=== PATIENT | male | born 1945 | race Caucasian/White ===

== ENCOUNTER 2020-02-14 10:56 | Emergency (ER) | payer MEDICARE ==
[~2020-02-14] VITALS: Ht 180.3 cm; Wt 103.0 kg
--- OUTSIDE RECORDS SUMMARY | ~2020-02-14 | XMS | Encounter Summary ---
Demographics + + + | Address | [address] | | | [place] [address] | + + + | Home Phone | | + + + | Preferred Language | Unknown | + + + | Marital Status | | + + + | Zoroastrian Affiliation | Unknown | + + + | Race | Unknown | + + + | Ethnic Group | Unknown | + + + Author + + + | Author | [facility] | | | and [place] | + + + | Organization | [facility] | | | and [place] | + + + | Address | Unknown | + + + | Phone | Unavailable | + + + Support + + +---------+ + | Name | Relationship | Address | Phone | + + +---------+ + | Torri Langran | ECON | Unknown | | + + +---------+ + | [facility] | ECON | Unknown | | + + +---------+ + Care Team Providers + +------+ + | Care Entry Level Administrative Assistant Name | Role | Phone | + +------+ + PCP | Unavailable | + +------+ + Encounter Details +--------+ + + + + | Date | Type | Department | Care Team | Description | +--------+ + + + + | 12/22/ | Hospital | [facility] | Bimal Benites MD | Unspecified Chest | | 2006 - | Encounter | [facility] | [address] | Pain | | | | CLINICAL DECISION | [place] [address] | | | 12/23/ | | [address] [facility] | [phone] | | | 2005 | | [place], [place] | | | | | | [address] | | | | | | [phone] | | | +--------+ + + + + Social History + +-------+ +--------+------+ | Tobacco Use | Types | Packs/Day | Years | Date | | | | | Used | | + +-------+ +--------+------+ | Never Assessed | | | | | + +-------+ +--------+------+ + + + | Sex Assigned at | Date Recorded | | | | + + + | Not on file | | + + + documented as of this encounter Plan of Treatment +--------+ + + + + | Date | Type | Specialty | Care Team | Description | +--------+ + + + + | 02/25/ | Office | Pulmonology | Андрей Lee MD | | | 2019 | Visit | | [address] | | | | | | [place] | | | | | | [phone] | | | | | | | | +--------+ + + + + | 02/27/ | Procedure | Cardiology | | | | 2019 | visit | | | | +--------+ + + + + documented as of this encounter Visit Diagnoses + + | Diagnosis | + + | Chest pain, unspecified | + + documented in this encounter"
--- OUTSIDE RECORDS SUMMARY | ~2020-02-14 | XMS | Encounter Summary ---
Demographics + + + | Address | [address] | | | [place] [address] | + + + | Home Phone | | + + + | Preferred Language | Unknown | + + + | Marital Status | | + + + | Scientology Affiliation | Unknown | + + + | Race | Unknown | + + + | Ethnic Group | Unknown | + + + Author + + + | Author | [facility] | | | and [place] | + + + | Organization | [facility] | | | and [place] | + + + | Address | Unknown | + + + | Phone | Unavailable | + + + Support + + +---------+ + | Name | Relationship | Address | Phone | + + +---------+ + | Torri Sanchez | ECON | Unknown | | + + +---------+ + | [facility] | ECON | Unknown | | + + +---------+ + Care Team Providers + +------+ + | Care Port Cdl A Driver Name | Role | Phone | + +------+ + | Deidre Urbano | PCP | | | MD | | | + +------+ + Encounter Details +--------+ + + + + | Date | Type | Department | Care Team | Description | +--------+ + + + + | 10/14/ | Orders Only | [facility] | Conversion | | | 2017 | | CONVERSION [address] | Transaction, | | | | | [address] | Provider Unknown | | | | | [place] | [phone] | | | | | [address] | | | | | | [phone] | | | +--------+ + + + [...] [address] | | | | | | [place] | | | | | | [id number] | | | | | | | | +--------+ + + + + | 02/27/ | Procedure | Cardiology | | | | 2019 | visit | | | | +--------+ + + + + documented as of this encounter Visit Diagnoses Not on filedocumented in this encounter"
--- OUTSIDE RECORDS SUMMARY | ~2020-02-14 | XMS | Encounter Summary ---
Demographics + + + | Address | [address] | | | [place] [address] | + + + | Home Phone | | + + + | Preferred Language | Unknown | + + + | Marital Status | | + + + | Jewish Affiliation | Unknown | + + + | Race | Unknown | + + + | Ethnic Group | Unknown | + + + Author + + + | Author | [facility] | | | and [place] | + + + | Organization | [facility] | | | and [place] | + + + | Address | Unknown | + + + | Phone | Unavailable | + + + Support + + +---------+ + | Name | Relationship | Address | Phone | + + +---------+ + | Torri Sanchez | ECON | Unknown | | + + +---------+ + | [facility] | ECON | Unknown | | + + +---------+ + Care Team Providers + +------+ + | Care Electrical Logging Engineer Name | Role | Phone | + +------+ + | Deidre Urbano | PCP | | | MD | | | + +------+ + Reason for Visit + + + | Reason | Comments | + + + | Device Check | | | (Remote) | | + + + Encounter Details +--------+ + + + + | Date | Type | Department | Care Team | Description | +--------+ + + + + | 12/19/ | Procedure | [facility] | | History of loop | | 2020 | visit | CARDIOLOGY [place] | | recorder (Primary | | | | [address] | | Dx) | | | | [place] | | | | | | [address] | | | | | | [phone] | | | +--------+ + + + + Social History + +-------+ +--------+ + | Tobacco Use | Types | Packs/Day | Years | Date | | | | | Used | | + +-------+ +--------+ + | Current Every Day | | 1 | | Started: 1966 | | Smoker | | | | | + +-------+ +--------+ + + +---+---+---+ | Smokeless Tobacco: | | | | | Never Used | | | | + +---+---+---+ + + + | Sex Assigned at | Date Recorded | | | | + + + | Not on file | | + + + documented as of this encounter Procedure Notes Ron Ortez RN - 12/20/2019 8:00 AM PDTAssociated Order(s): DEVICE INTERROGATION- REM OTEProcedure(s): DEVICE INTERROGATION- REMOTEPre-Procedure Diagnose(s): History of loop lucila rder IMPLANTABLE LOOP RECORDER REMOTE INTERROGATION REPORT Name: Carla Sanchez Jr. PCP: Deidre Stiles MD : 1945 Primary cardiology provider: Kosta Jarquin Primary electrophysiology provider: None Mode of interrogation: Remote Device: [employer]estronic Battery Status: OK Interrogation results Please see the full interrogation report attached to this document. Bradycardia: Bradycardic episodes: There were no bradycardic episodes noted during the mariama toring period. Pauses: No pauses greater than 2.0 seconds were noted. Atrial events: Atrial high rate episodes (AT or AF): None Percentage of time in atrial flutter or atrial fibrillation: 0.0% Known history of atrial flutter or atrial fibrillation: No Current antithrombotic therapy including: aspirin Ventricular events: Ventricular high rate episodes: None. Symptoms: No symptoms were noted since the last interrogation. Additional comments: None. Follow up: The next scheduled interrogation will be in 5 weeks. Impression: 1. No significant bradyarrhythmias were noted. 2. No significant tachyarrhythmias were noted. 3. No patient activated episodes were noted. Reviewed by: Ron Ortez RN Associated attestation - Kosta Jarquin MD - 12/20/2019 4:39 PM PDTNo significant arrhythm ias.documented in this encounter Plan of Treatment +--------+ + + + + | Date | Type | Specialty | Care Team | Description | +--------+ + + + + | 02/25/ | Office | Pulmonology | Андрей Lee MD | | 2019 | Visit | | [address] | | | | | | [place], [place] | | | | | | [address] | | | | | | | | +--------+ + + + + | 02/27/ | Procedure | Cardiology | | | 2019 | visit | | | | +--------+ + + + + documented as of this encounter Procedures + +--------+ + + + | Procedure Name | Priori | Date/Time | Associated Diagnosis | Comments | | | ty | | | | + +--------+ + + + | DEVICE | Routin | 12/20/2019 | History of loop | Results for this | | INTERROGATION- | e | 8:00 AM | recorder | procedure are in the | | REMOTE | | PDT | | results section. | + +--------+ + + + documented in this encounter Results Device Interrogation - Remote (12/20/2019 8:00 AM PDT) + + + | Narrative | Performed At | + + + | Ron Marquez | [facility] | | ZABRINA Ortez 12/20/2019 9:20 AM IMPLANTABLE LOOP RECORDER REMOTE | | | INTERROGATION REPORT Name: Carla Sanchez Jr. PCP: Deidre Marquez | | | Bernarda Stiles MD : 1945MRN: [id number] Primary cardiology | | | provider: Kosta Jarquin Primary electrophysiology provider: None | | | Mode of interrogation: Remote Device: MedtronicBattery Status: | | | OKInterrogation resultsPlease see the full interrogation report | | | attached to this document. Bradycardia: Bradycardic episodes: There | | | were no bradycardic episodes noted during the monitoring period. | | | Pauses: No pauses greater than 2.0 seconds were noted. Atrial | | | events: Atrial high rate episodes (AT or AF): None Percentage of | | | time in atrial flutter or atrial fibrillation: 0.0% Known history of | | | atrial flutter or atrial fibrillation: No Current antithrombotic | | | therapy including: aspirin Ventricular events: Ventricular high | | | rate episodes: None. Symptoms: No symptoms were noted since the | | | last interrogation. Additional comments: None. Follow up: The next | | | scheduled interrogation will be in 5 weeks. Impression:1. No | | | significant bradyarrhythmias were noted.2. No significant | | | tachyarrhythmias were noted.3. No patient activated episodes were | | | noted. Reviewed by: Ron Ortez RN | | |episodes noted during the monitoring period. | | | | | |Pauses: No pauses greater than 2.0 seconds were noted. | | | | | |Atrial events: Atrial high rate episodes (AT or AF): None | | | | | |Percentage of time in atrial flutter or atrial fibrillation: 0.0% | | | | | |Known history of atrial flutter or atrial fibrillation: No | | | | | |Current antithrombotic therapy including: aspirin | | | | | | | | |Ventricular events: Ventricular high rate episodes: None. | | | | | |Symptoms: No symptoms were noted since the last interrogation. | | | | | |Additional comments: None. | | |Follow up: The next scheduled interrogation will be in 5 weeks. | | | | | |Impression: | | |1. No significant bradyarrhythmias were noted. | | |2. No significant tachyarrhythmias were noted. | | |3. No patient activated episodes were noted. | | | | | |Reviewed by: Ron Ortez RN | | + + + + +---------+ + + | Performing | Address | City/State[facility] | Phone Number | | Organization | | | | + +---------+ + + | [facility] | | | | + +---------+ + + documented in this encounter Visit Diagnoses + + | Diagnosis | + + | History of loop recorder - Primary | + + documented in this encounter"
--- OUTSIDE RECORDS SUMMARY | ~2020-02-14 | XMS | Encounter Summary ---
Demographics + + + | Address | [address] | | | [place] [address] | + + + | Home Phone | | + + + | Preferred Language | Unknown | + + + | Marital Status | | + + + | Uatsdin Affiliation | Unknown | + + + | Race | Unknown | + + + | Ethnic Group | Unknown | + + + Author + + + | Author | [facility] | | | and [place] | + + + | Organization | [facility] | | | and [place] | + + + | Address | Unknown | + + + | Phone | Unavailable | + + + Support + + +---------+ + | Name | Relationship | Address | Phone | + + +---------+ + | Torri Langran | ECON | Unknown | | + + +---------+ + | [facility] | ECON | Unknown | | + + +---------+ + Care Team Providers + +------+ + | Care Patternmaker Bench Name | Role | Phone | + +------+ + PCP | Unavailable | + +------+ + Encounter Details +--------+ + + + + | Date | Type | Department | Care Team | Description | +--------+ + + + + | 02/23/ | Hospital | [facility] | Conversion | Chronic obstructive | | 2018 | Encounter | PULMONARY FUNCTION | Transaction, | pulmonary disease, | | | | LAB [address] | Provider Unknown | unspecified COPD | | | | [place], [place] | | type (HCC) | | | | [phone] | (Fax) | | | | | [phone] | | | +--------+ + + + [...] + + documented as of this encounter Medications at Time of Discharge + + + +---------+ + + | Medication | Sig | Dispensed | Refills | Start | End Date | | | | | | Date | | + + + +---------+ + + | albuterol | Inhale 2 puffs into | | 0 | / | | | (PROVENTIL HFA) 90 | the lungs every 4 | | | 17 | | | mcg/puff inhaler | (four) hours as | | | | | | | needed for Wheezing | | | | | | | or Shortness of | | | | | | | Breath. | | | | | + + + +---------+ + + | aspirin 81 mg EC | Take 81 mg by mouth | | 0 | 06/07/20 | | | tablet | every other day. | | | 14 | | + + + +---------+ + + | finasteride | Take 5 mg by mouth | | 0 | 06/19/20 | | | (PROSCAR) 5 mg | daily. | | | 15 | | | tablet | | | | | | + + + +---------+ + + | furosemide (LASIX) | Take 40 mg by mouth | | 0 | 12/19/19 | | | 40 mg tablet | 2 (two) times daily. | | | 15 | | + + + +---------+ + + | lisinopril | Take 10 mg by mouth | | 0 | 12/19/19 | | | (PRINIVIL, ZESTRIL) | daily. | | | 15 | | | 20 mg tablet | | | | | | + + + +---------+ + + | cholecalciferol | Take 1,000 Units by | | 0 | 01/21/20 | | | (CHOLECALCIFEROL) | mouth daily. | | | 18 | 0 | | 1000 units TABS | | | | | | + + + +---------+ + + | potassium chloride | Take 20 mEq by mouth | | 0 | 10/15/19 | | | (KLOR-CON M20) 20 | daily. | | | 17 | 0 | | mEq ER tablet | | | | | | + + + +---------+ + + | rosuvastatin | Take 1 tablet by | 90 | 3 | 07/28/19 | | | (CRESTOR) 20 mg | mouth nightly. | tablet | | 17 | 0 | | tablet | | | | | | + + + +---------+ + + documented as of this encounter Procedure Notes Darion Fabian MD - 02/23/2018 11:59 PM PDT Procedures by Darion Fabian MD at 02/23/18 6021 Author: Darion Fabian MD Service: Pulmonology Author Type: Physician Filed: 02/24/18 1324 Date of Service: 02/23/18 3474 Status: Signed Prosthetic Aide: Darion Fabian MD (Physician) Procedure Orders: 1. Complete PFT - Pre & Post Spirometry, PLETH & DLCO [[id number]] ordered by Андрей Lee MD at 01/20/18 0917 [facility] Service: Pulmonology PULMONARY FUNCTION TEST Name : Carla Sanchez Jr. : 1945 REASON FOR TESTING: COPD FINDINGS SPIROMETRY: 1. FEV-1/FVC is 0.57 2. FEV-1 is 2.65L/80% 3. FVC is 4.65L/103% 4.There is a significant bronchodilator response. LUNG VOLUMES: 1. TLC is 6.26L/87% 2. RV/TLC is 0.29. DIFFUSING CAPACITY: 1. Diffusing capacity is 32% 2. DLCO/VA is 40% INTERPRETATION: 1. Spirometry is consistent with mild obstructive lung disease with a significant bronchodi lator response. 2. Lung volumes are within normal limits. There is no significant restriction nor air trap ping. 3. Diffusing capacity is severely reduced. Darion Fabian MD 02/24/2018 1:23 PM docume nted in this encounter Plan of Treatment +--------+ + + + + | Date | Type | Specialty | Care Team | Description | +--------+ + + + + | 02/25/ | Office | Pulmonology | Андрей Lee MD | | | 2020 | Visit | | [address] | | | | | | [place] | | | | | | [address] | | | | | | | | +--------+ + + + + | 02/27/ | Procedure | Cardiology | | | | 2019 | visit | | | | +--------+ + + + + documented as of this encounter Visit Diagnoses + + | Diagnosis | + + | Chronic obstructive pulmonary disease, unspecified COPD type (HCC) | + + documented in this encounter"
--- OUTSIDE RECORDS SUMMARY | ~2020-02-14 | XMS | Encounter Summary ---
Demographics + + + | Address | [address] | | | [place] [address] | + + + | Home Phone | | + + + | Preferred Language | Unknown | + + + | Marital Status | | + + + | Holiness Affiliation | Unknown | + + + | Race | Unknown | + + + | Ethnic Group | Unknown | + + + Author + + + | Author | [facility] | | | and [place] | + + + | Organization | [facility] | | | and [place] | + + + | Address | Unknown | + + + | Phone | Unavailable | + + + Support + + +---------+ + | Name | Relationship | Address | Phone | + + +---------+ + | Torri Sanchez | ECON | Unknown | | + + +---------+ + | [facility] | [facility] | Unknown | | + + +---------+ + Care Team Providers + +------+ + | Care De Alcholizer Name | Role | Phone | + +------+ + | Deidre Urbano | PCP | | | MD | | | + +------+ + Reason for Visit + + + | Reason | Comments | + + + | Device Check | Loop Summary Report | | (Remote) | | + + + Encounter Details +--------+ + + + + | Date | Type | Department | Care Team | Description | +--------+ + + + + | 09/06/ | Procedure | [facility] | | History of loop | | 2020 | visit | CARDIOLOGY [place] | | recorder (Primary | | | | [address] | | Dx) | | | | [place] | | | | | | [address] | | | | | | [phone] | | | +--------+ + + + [...] documented as of this encounter Procedure Notes Kristen Hudson, Chucking Lathe Operator - 09/06/2019 8:00 AM PSTAssociated Order(s): DEVICE INT ERROGATION- REMOTEProcedure(s): DEVICE INTERROGATION- REMOTEPre-Procedure Diagnose(s): Histo ry of loop recorder IMPLANTABLE LOOP RECORDER REMOTE INTERROGATION REPORT Name: Carla Sanchez Jr. PCP: Deidre Stiles MD : 1945 Primary cardiology provider: Kosta Jarquin Primary electrophysiology provider: None Mode of interrogation: Remote Device: Medtronic Battery Status: OK Interrogation results Please see the full interrogation report attached to this document. Bradycardia: Bradycardic episodes: There were no bradycardic episodes noted during the mariama toring period. Pauses: No pauses greater than 2.0 seconds were noted. Atrial events: Atrial high rate episodes (AT or AF): None Confirmed episodes of atrial flutter or atrial fibrillation: No Known history of atrial flutter or atrial [...] patient activated episodes were noted. Reviewed by: Kristen Hudson, Device Clinic Associated attestation - Kosta Jarquin MD - 09/06/2019 1:34 PM PSTNo significant arrhythm ias. documented in this encounter Plan of Treatment +--------+ + + + + | Date | Type | Specialty | Care Team | Description | +--------+ + + + + | 02/25/ | Office | Pulmonology | Андрей Lee MD | | | 2019 | Visit | | [address] | | | | | | [place] | | | | | | [address] | | | | | | | | +--------+ + + + + | 02/27/ Procedure | Cardiology | | | | 2019 | visit | | | | +--------+ + + + + documented as of this encounter Procedures + +--------+ + + + | Procedure Name | Priori | Date/Time | Associated Diagnosis | Comments | | | ty | | | | + +--------+ + + + | DEVICE | Routin | 09/06/2019 | History of loop | Results for this | | INTERROGATION- | e | 8:00 AM | recorder | procedure are in the | | REMOTE | | PST | | results section. | + +--------+ + + + documented in this encounter Results Device Interrogation - Remote (09/06/2019 8:00 AM PST) + + + | Narrative | Performed At | + + + | Kristen Landeros | [facility] | | Tristan, Chucking Lathe Operator 09/06/2019 8:48 AM IMPLANTABLE LOOP | | | RECORDER REMOTE INTERROGATION REPORT Name: Carla Sanchez Jr. | | | PCP: Deidre Stiles MD : 1945MRN: [id number] | | | Primary cardiology provider: Kosta Jarquin Primary electrophysiology | | | provider: None Mode of interrogation: Remote Device: | | | MedtronicBattery Status: OKInterrogation resultsPlease see the full | | | interrogation report attached to this document. Bradycardia: | | | Bradycardic episodes: There were no bradycardic episodes noted during | | | the monitoring period. Pauses: No pauses greater than 2.0 seconds | | | were noted. Atrial events: Atrial high rate episodes (AT or AF): | | | None Confirmed episodes of atrial flutter or atrial fibrillation: | | | No Known history of atrial flutter or atrial fibrillation: No | | | Current antithrombotic therapy including: aspirin Ventricular | | | events: Ventricular high rate episodes: None. Symptoms: No | | | symptoms were noted since the last interrogation. Additional | | | comments: None. Follow up: The next scheduled interrogation will be in | | | 5 weeks. Impression:1. No significant bradyarrhythmias were noted.2. | | | No significant tachyarrhythmias were noted.3. No patient activated | | | episodes were noted. Reviewed by: Kristen Hudson, Device Clinic | | |episodes noted during the monitoring period. | | | | | |Pauses: No pauses greater than 2.0 seconds were noted. | | | | | |Atrial events: Atrial high rate episodes (AT or AF): None | | | | | |Confirmed episodes of atrial flutter or atrial fibrillation: No | | | | | |Known history [...] | | | | | |Reviewed by: Kristen Hudson, Device Clinic | | | | | | | | | | | | | | | | | | | | + + + + +---------+ + + | Performing | Address | City/State/Zipcode | Phone Number | | Organization | | | | + +---------+ + + | [facility] | | | | + +---------+ + + documented in this encounter Visit Diagnoses + + | Diagnosis | + + | History of loop recorder - Primary | + + documented in this encounter"
--- OUTSIDE RECORDS SUMMARY | ~2020-02-14 | XMS | Encounter Summary ---
Demographics + + + | Address | [address] | | | [place] [address] | + + + | Home Phone | | + + + | Preferred Language | Unknown | + + + | Marital Status | | + + + | Rastafari Affiliation | Unknown | + + + | Race | Unknown | + + + | Ethnic Group | Unknown | + + + Author + + + | Author | [facility] | | | and [place] | + + + | Organization | [facility] | | | and [place] | + + + | Address | Unknown | + + + | Phone | Unavailable | + + + Support + + +---------+ + | Name | Relationship | Address | Phone | + + +---------+ + | Torri Sanchez | ECON | Unknown | | + + +---------+ + | [facility] | ECON | Unknown | | + + +---------+ + Care Team Providers + +------+ + | Care Soaker Helper Name | Role | Phone | + +------+ + | Deidre Urbano | PCP | | | MD | | | + +------+ + Encounter Details +--------+ + + + + | Date | Type | Department | Care Team | Description | +--------+ + + + + | 06/19/ | Orders Only | [facility] | Conversion | | | 2015 | | CONVERSION [address] | Transaction, | | | | | [address] | Provider Unknown | | | | | [place] | [phone] | | | | | [address] | | | | | | [phone] | | | +--------+ + + + [...] | 2019 | Visit | | [address] | | | | | | [place] | | | | | | [address] | | | | | | | | +--------+ + + + + | 02/27/ | Procedure | Cardiology | | | | 2019 | visit | | | | +--------+ + + + + documented as of this encounter Visit Diagnoses Not on filedocumented in this encounter"
--- OUTSIDE RECORDS SUMMARY | ~2020-02-14 | XMS | Encounter Summary ---
Demographics + + + | Address | [address] | | | [place] [address] | + + + | Home Phone | | + + + | Preferred Language | Unknown | + + + | Marital Status | | + + + | Tenriism Affiliation | Unknown | + + + | Race | Unknown | + + + | Ethnic Group | Unknown | + + + Author + + + | Author | [facility] | | | and [place] | + + + | Organization | [facility] | | | and [place] | + + + | Address | Unknown | + + + | Phone | Unavailable | + + + Support + + +---------+ + | Name | Relationship | Address | Phone | + + +---------+ + | Torri Langran | ECON | Unknown | | + + +---------+ + | [facility] | ECON | Unknown | | + + +---------+ + Care Team Providers + +------+ + | Care Tucking Machine Operator Name | Role | Phone | + +------+ + PCP | Unavailable | + +------+ + Encounter Details +--------+ + + + + | Date | Type | Department | Care Team | Description | +--------+ + + + + | 06/25/ | Hospital | [facility] | Filiberto Alan, | | | 2008 - | Encounter | CON[address] | MD [address] | | | | | [address] | [place], | | | 01/16/ | | [place], [place] | [place] [address] | | | 2008 | | [address] | [phone] | | | | | [phone] | | | +--------+ + + + [...] [place] | | | | | | [address] | | | | | | | | +--------+ + + + + | 02/27/ | Procedure | Cardiology | | | | 2019 | visit | | | | +--------+ + + + + documented as of this encounter Visit Diagnoses Not on filedocumented in this encounter"
--- OUTSIDE RECORDS SUMMARY | ~2020-02-14 | XMS | Encounter Summary ---
Demographics + + + | Address | [address] | | | [place] [address] | + + + | Home Phone | | + + + | Preferred Language | Unknown | + + + | Marital Status | | + + + | Sabianist Affiliation | Unknown | + + + | Race | Unknown | + + + | Ethnic Group | Unknown | + + + Author + + + | Author | [facility] | | | and [place] | + + + | Organization | [facility] | | | and [place] | + + + | Address | Unknown | + + + | Phone | Unavailable | + + + Support + + +---------+ + | Name | Relationship | Address | Phone | + + +---------+ + | Torri Sanchez | ECON | Unknown | | + + +---------+ + | [facility] | [facility] | | + + +---------+ + Care Team Providers + +------+ + | Care Coffee Shop Manager Name | Role | Phone | + +------+ + | Deidre Urbano | PCP | | | MD | | | + +------+ + Reason for Visit + + + | Reason | Comments | + + + | Device Check | Loop Summary Report - routine | | (Remote) | | + + + Encounter Details +--------+ + + + + | Date | Type | Department | Care Team | Description | +--------+ + + + + | 10/10/ | Procedure | [facility] | | History of loop | | 2020 | visit | CARDIOLOGY STACY | | recorder (Primary | | | | [address] | | Dx) | | | | [place], [place] | | | | | | [address] | | | | | | [phone] | | | +--------+ + + + [...] of this encounter Procedure Notes Kristen Hudson, Domestic Travel Consultant - 10/11/2019 8:00 AM PDTAssociated Order(s): DEVICE INT ERROGATION- REMOTEProcedure(s): DEVICE INTERROGATION- [...] atrial fibrillation: No Current antithrombotic therapy including: N/A Ventricular events: Ventricular high rate episodes: None. Symptoms: There are 3 patient triggered symptoms since 09/06/2019, two with EGM's to review. These do not appear to correspond to any significant arrhythmias. Additional comments: None. Follow up: The next scheduled interrogation will be in 5 weeks. Impression: 1. No significant bradyarrhythmias were noted. 2. No significant tachyarrhythmias were noted. 3. Patient activated episodes correspond to no significant arrhythmias. Reviewed by: Kristen Hudson, Device Clinic Associated attestation - Kosta Jarquin MD - 10/12/2019 6:06 PM PDTNo significant arrhythm ias. Recorded symptoms correlating with normal sinus rhythm.documented in this encounter Plan of Treatment +--------+ + + + + | Date | Type | Specialty | Care Team | Description | +--------+ + + + + | 02/25/ | Office | Pulmonology | Андрей Lee MD | | | 2019 | Visit | | [address] | | | | | | [place] | | | | | | [id number] | | | | | | | [...] + + | DEVICE | Routin | 10/11/2019 | History of loop | Results for this | | INTERROGATION- | e | 8:00 AM | recorder | procedure are in the | | REMOTE | | PDT | | results section. | + +--------+ + + + documented in this encounter Results Device Interrogation - Remote (10/11/2019 8:00 AM PDT) + + + | Narrative | Performed At | + + + | Kristen Landeros | [facility] | | Tristan, Domestic Travel Consultant 10/11/2019 12:11 PM IMPLANTABLE LOOP | | | RECORDER REMOTE INTERROGATION REPORT Name: Carla Sanchez Jr. | | | PCP: Deidre Stiles MD : 1945MRN: [id number] | | | Primary cardiology provider: Kosta [...] | | | Current antithrombotic therapy including: N/A Ventricular events: | | | Ventricular high rate episodes: None. Symptoms: There are 3 | | | patient triggered symptoms since 09/06/2019, two with EGM's to review. | | | These do not appear to correspond to any significant arrhythmias. | | | Additional comments: None. Follow up: The next scheduled | | | interrogation will be in 5 weeks. Impression:1. No significant | | | bradyarrhythmias were noted.2. No significant tachyarrhythmias were | | | noted.3. Patient activated episodes correspond to no significant | | | arrhythmias. Reviewed by: Kristen Hudson, Device Clinic | | |Pauses: No pauses greater than 2.0 seconds were noted. | | | | | |Atrial events: Atrial high rate episodes (AT or AF): None | | | | | |Confirmed episodes of atrial flutter or atrial fibrillation: No | | | | | |Known history of atrial flutter or atrial fibrillation: No | | | | | |Current antithrombotic therapy including: N/A | | | | | | | | |Ventricular events: Ventricular high rate episodes: None. | | | | | |Symptoms: There are 3 patient triggered symptoms since 09/06/2019, | | |two with EGM's to review. These do not appear to correspond to | | |any significant arrhythmias. | | | | | |Additional comments: None. | | |Follow up: The next scheduled interrogation will be in 5 weeks. | | | | | |Impression: | | |1. No significant bradyarrhythmias were noted. | | |2. No significant tachyarrhythmias were noted. | | |3. Patient activated episodes correspond to no significant | | |arrhythmias. | | | | | |Reviewed by: [...]
--- OUTSIDE RECORDS SUMMARY | ~2020-02-14 | XMS | Encounter Summary ---
Demographics + + + | Address | [address] | | | [place] [address] | + + + | Home Phone | | + + + | Preferred Language | Unknown | + + + | Marital Status | | + + + | Rastafarian Affiliation | Unknown | + + + | Race | Unknown | + + + | Ethnic Group | Unknown | + + + Author + + + | Author | [facility] | | | and [place] | + + + | Organization | [facility] | | | and [place] | + + + | Address | Unknown | + + + | Phone | Unavailable | + + + Support + + +---------+ + | Name | Relationship | Address | Phone | + + +---------+ + | Torri Sanchez | ECON | Unknown | | + + +---------+ + | [facility] | ECON | Unknown | | + + +---------+ + Care Team Providers + +------+ + | Care Valet Parking Attendant Name | Role | Phone | + +------+ + PCP | Unavailable | + +------+ + Encounter Details +--------+ + + + + | Date | Type | Department | Care Team | Description | +--------+ + + + + | 02/13/ | Hospital | [facility] | Conversion | Dysphagia | | 2012 | Encounter | [facility] | Transaction, | | | | | [address] | Provider Unknown | | | | | [place], [place] | | | | | | [address] | (Fax) | | | | | [phone] | | | +--------+ + + + [...] | | | | | [place] | | | | | | [address] | | | | | | | [...] | + +--------+ + + + | FL VIDEO SWALLOW W | Routin | 08/31/2011 | | Results for this | | SPEECH | e | 2:00 PM | | procedure are in the | | | | PST | | results section. | + +--------+ + + + documented in this encounter Results FL Video Swallow w Speech (08/31/2011 2:00 PM PST) + + | Specimen | + + | | + + + + + | Narrative | Performed At | + + + | This is a non-reportable procedure without a radiologist report and | | | is used for image storage only | | + + + + + | Procedure Note | + + | Oswaldo Potter Kwabena - 03/11/2019 5:49 AM PDT This is a non-reportable procedure | | without a radiologist report and isused for image storage only | + + documented in this encounter Visit Diagnoses + + | Diagnosis | + + | Dysphagia Dysphagia, unspecified | + + documented in this encounter"
--- OUTSIDE RECORDS SUMMARY | ~2020-02-14 | XMS | Encounter Summary ---
Demographics + + + | Address | [address] | | | [place] [address] | + + + | Home Phone | | + + + | Preferred Language | Unknown | + + + | Marital Status | | + + + | Cheondoism Affiliation | Unknown | + + + | Race | Unknown | + + + | Ethnic Group | Unknown | + + + Author + + + | Author | [facility] | | | and [place] | + + + | Organization | [facility] | | | and [place] | + + + | Address | Unknown | + + + | Phone | Unavailable | + + + Support + + +---------+ + | Name | Relationship | Address | Phone | + + +---------+ + | Torri Langran | ECON | Unknown | | + + +---------+ + | [facility] | ECON | Unknown | | + + +---------+ + Care Team Providers + +------+ + | Care Shipping And Receiving Coordinator Name | Role | Phone | + +------+ + PCP | Unavailable | + +------+ + Encounter Details +--------+ + + + + | Date | Type | Department | Care Team | Description | +--------+ + + + + | 01/08/ | Hospital | [facility] | Conversion | Coronary artery | | 2016 | Encounter | [facility] | Transaction, | disease involving | | | | CLINICAL DECISION | Provider Unknown | [place] coronary | | | | [address] | [phone] | artery of [place] | | | | [place], [place] | | heart with angina | | | | [address] | Kosta Jarquin MD | pectoris ([facility]); | | | | [phone] | [address] | Essential | | | | | [place] [address] | hypertension with | | | | | [phone] | goal blood pressure | | | | | | less than 130/80; | | | | | | Hyperlipidemia, | | | | | | unspecified | | | | | | hyperlipidemia type; | | | | | | Abnormal nuclear | | | | | | stress test | +--------+ + + + + Social [...] + + documented as of this encounter Last Filed Vital Signs + + + + + | Vital Sign | Reading | Time Taken | Comments | + + + + + | Blood Pressure | 146/79 | 01/09/2016 4:26 PM | | | | | PDT | | + + + + + | Pulse | 70 | 01/09/2016 4:26 PM | | | | | PDT | | + + + + + | Temperature | 36.7 C (98.1 F) | 01/09/2016 4:26 PM | | | | | PDT | | + + + + + | Respiratory Rate | 16 | 01/09/2016 4:26 PM | | | | | PDT | | + + + + + | Oxygen Saturation | - | - | | + + + + + | Inhaled Oxygen | - | - | | | Concentration | | | | + + + + + | Weight | 104.3 kg (230 lb) | 01/09/2016 4:26 PM | | | | | PDT | | + + + + + | Height | 180.3 cm (5' 11") | 01/09/2016 4:26 PM | | | | | PDT | | + + + + + | Body Mass Index | 32.08 | 01/09/2016 4:26 PM | | | | | PDT | | + + + + + documented in this encounter Medications at Time of Discharge [...] + + documented as of this encounter Progress Notes Conversion Transaction, Provider Unknown - 01/09/2016 4:25 PM PDTFormatting of this note m ight be different from the original. Nurse Progress Note by Erica Polk RN at 01/09/16 1625 Author: Erica Polk RN Service: (none) Author Type: Registered Nurse Filed: 01/09/16 1625 Date of Service: 01/09/16 1625 Status: Signed Real Estate Services Coordinator: Erica Polk RN (Registered Nurse) Patient given AVS. Right radial site remains c/d/i. Verbalizes understanding and is agreea ble; states no further questions at this time. Wheelchair ride out to private vehicle. Erica Polk RN onver iesha Transaction, Provider Unknown - 01/09/2016 3:20 PM PDT Nurse Progress Note by Erica Polk RN at 01/09/16 1520 Author: Erica Polk RN Service: (none) Author Type: Registered Nurse Filed: 01/09/16 1520 Date of Service: 01/09/16 1520 Status: Signed Real Estate Services Coordinator: Erica Polk RN (Registered Nurse) Final air removed from right TR band; no bleeding and bandage applied to site. Erica Polk RN onver iesha Transaction, Provider Unknown - 01/09/2016 1:03 PM PDT Progress Notes by Deloris Gary RN at 01/09/16 1303 Author: Deloris Gary RN Service: (none) Author Type: Registered Nurse Filed: 01/09/16 1304 Date of Service: 01/09/16 1303 Status: Signed Real Estate Services Coordinator: Deloris Gary RN (Registered Nurse) Back At Bedside And updated Tr Band Started Bleeding So 6 Cc Air Inserte d And Have To Wait Again. States From [place] And Was Up At 4 Am. Recliner Car Brought To Room For . Report To Lead briseyda Polanco. Kiesha onver iesha Transaction, Provider Unknown - 01/09/2016 1:01 PM PDT Progress Notes by Deloris Gary RN at 01/09/16 1301 Author: Deloris Gary RN Service: (none) Author Type: Registered Nurse Filed: 01/09/16 1303 Date of Service: 01/09/16 1301 Status: Signed Real Estate Services Coordinator: Deloris Gary RN (Registered Nurse) Back At Bedside And updated Tr Band Started Bleeding So 6 Cc Air Inserte d And Have To Wait Again. States From [facility] And Was Up At 4 Am. Recliner Car Brought To Room For . Report To Lead rn Sherri. Kiesha onver iesha Transaction, Provider Unknown - 01/09/2016 10:52 AM PDT Progress Notes by Deloris Gary RN at 01/09/16 1052 Author: Deloris Gary RN Service: (none) Author Type: Registered Nurse Filed: 01/09/16 1053 Date of Service: 01/09/16 1052 Status: Signed Real Estate Services Coordinator: Deloris Gary RN (Registered Nurse) Pt Done Eating. Dylanrney Repositioned For Pt As Directed. Tr band Precautions/bleeding Reviewed With Pt And Spouse/both States They Understand. rn Explain Because Tr Wrist Was Used Tr band Had Bleeding And Air Aspiration Is Delayed. Kiesha onver iesha Transaction, Provider Unknown - 01/09/2016 10:15 AM PDT Progress Notes by Deloris Gary RN at 01/09/16 1015 Author: Deloris Gary RN Service: (none) Author Type: Registered Nurse Filed: 01/09/16 1034 Date of Service: 01/09/16 1015 Status: Signed Real Estate Services Coordinator: Deloris Gary RN (Registered Nurse) at Bedside and updated On Pt. Pt Food Arrived And Pt Moving In Bed Using Right Wrist-pushing and Pulling while rn Instructed pt Not To use rt Wrist . Pt did it Any Way. States Pt Has ptsd and Has No Patience. TRband Has Blood At Site/no Further Bleeding. Pt Given Tr band Bleeding Precautions And Instructions When First Arrived To 1136. EBinkhuysenrn docume nted in this encounter H&P Notes Kosta Jarquin - 01/09/2016 7:39 AM PDT H&P by Kosta Jarquin MD at 01/09/1639 Author: Kosta Jarquin MD Service: Cardiology Author Type: Physician Filed: 01/09/16 0741 Date of Service: 01/09/16738 Status: Signed Real Estate Services Coordinator: Kosta Jarquin MD (Physician) [facility] Service: Cardiology Pre-Operative History & Physical Interval Update There have been no significant clinical changes since the completion of the above H&P. Moderate Sedation Presedation Assessment completed. ASA Classification: ASA 2: Patient with a mild systemic disease Kosta Jarquin MD 01/09/2016 *CORE MEASURES REMINDER: If the patient has a known or suspected infection prior to surger y, please add diagnosis to the problem list (consider: Infection 136.9). [facility]: [facility]: CYDNEY FISCHER CHIEF COMPLAINT: Chief Complaint Patient presents with Follow-up discuss stress test HISTORY OF PRESENT ILLNESS: Mr. Sanchez is a 70-year-old gentleman who presents today for follow-up. He continues to complain of episodes of chest pain, on average twice a week, in the center of the chest, no radiation, described as aching, last for 5 minutes to half an hour, precipi tated by emotional stress and physical exertion, consistent with angina class III. He is compliant with his medications. REVIEW OF SYSTEMS: Negative except for pertinent items noted in HPI. Review of Systems Constitutional: Negative for fatigue. HENT: Negative for nosebleeds. Eyes: Negative for visual disturbance. Respiratory: No shortness of breath. Cardiovascular: Chest pain. No edema. Gastrointestinal: Negative for nausea, vomiting, abdominal pain and blood in stool. Genitourinary: Negative for hematuria. Musculoskeletal: Negative for myalgias, back pain and arthralgias. Skin: Negative for color change. Neurological: Negative for dizziness. No syncope. No numbness. Hematological: Does not bruise/bleed easily. Psychiatric/Behavioral: The patient is not nervous/anxious. PHYSICAL EXAM: BP 124/66 mmHg | Pulse 74 | Resp 20 | Ht 1.816 m (5' 11.5") | Wt 104.713 kg (230 lb 13.6 oz ) | BMI 31.75 kg/m2 | SpO2 94% Constitutional: Well-developed. Neck: No JVD present. No thyromegaly present. Cardiovascular: Regular rhythm, S1 normal and S2 normal. No murmur heard. Pulses: Radial pulses are 2+ on the right side, and 2+ on the left side. Pulmonary/Chest: Effort normal and breath sounds normal. No wheezes. No rales. Abdominal: Soft. No tenderness. Musculoskeletal: No edema. Neurological: Alert. No cranial nerve deficit. Skin: Warm and dry. DATA: Blood tests: Lab Results Component Value Date WBC 6.8 06/28/2014 RBC 5.43 06/28/2014 HGB 16.9 06/28/2014 HCT 48.7 06/28/2014 PLT 265 06/28/2014 Lab Results Component Value Date NA 139 06/28/2014 K 3.5 06/28/2014 CL 105 06/28/2014 CO2 28 06/28/2014 ANIONGAP 9 06/28/2014 GLUF 83 06/28/2014 BUN 11 06/28/2014 CREATININE 0.96 06/28/2014 BCR 11 06/28/2014 CA 8.9 06/28/2014 EGFR >60 06/28/2014 Lab Results Component Value Date CHOL 123 03/06/2011 TRIG 103 03/06/2011 LDL 67 03/06/2011 GLUF 83 06/28/2014 No results found for: BNP No results found for: MET Blood tests February 2015. Total cholesterol 126, triglycerides 156, HDL 36.6, LDL 58 Sodium 137, potassium 3.8, urea 11, creatinine 0.82 AST 16, AST 17, total protein 6.5, albumin 3.8 White blood cell count 6.7, hemoglobin 15.9, platelet count 250 EKG: June 19, 2015, reviewed personally on June 19, 2015. Sinus rhythm, heart rate 66, lef t axis deviation, right bundle branch block. December 03, 2014, at [facility] reviewed personally showed sinus rhythm, heart rate 6 3. Normal axis. Normal P wave, IL interval. Right bundle branch block. Normal ST-T segment a nd normal QT interval. June 28, 2014 showed sinus rhythm, heart rate 63, normal axis, normal P-wave, IL inte rval, right bundle branch block, normal ST T segment, normal QT interval. June 13, 2014, reviewed personally. Showed normal sinus rhythm, 65 beats per minute, ri ght bundle branch block. Last Echo: December 03, 2014, reported by Dr. Villar showed EF 67%, diastolic dysfunction, mildly dilated r ight ventricle, biatrial enlargement, trace mitral valve regurgitation, mild tricuspid valve regurgitation, estimated PA pressure 34 mmHg. October 24, 2012, ejection fraction 58%, grade 1 diastolic dysfunction, no significant valvula r abnormalities. Last stress test: December 25, 2015. Abnormal study with low to intermediate risk. Evidence of ischemia in the lef t circumflex territory. EF 59 percent. Poor exercise tolerance. No chest pain. Mcneil treadmil l score 1.5. Last cath: June 29, 2014, 2-vessel disease with patent stents in the LAD and the RCA, negative FFR in the RCA 0.87. March 07, 2011, visible disease with patent stents in the left anterior descending and rig ht coronary artery with 50% to 60% in-stent restenosis in the mid LAD and mid RCA with negat zaira FFR. Carotid US: AAA screening: Lower extremity US: OTHERS: December 2014. One month monitor. Sinus rhythm. 0.51 percent ventricular activity. No significa nt tachyarrhythmias or bradyarrhythmias. CT PE protocol on December 02, 2014, showed no evidence of PE, no aneurysm or dissection, calcif ied coronary arteries. Assessment/Plan ASSESSMENT & PLAN: Mr. Sanchez is a 70-year-old gentleman with the following medical problems: 1. Hypertension. 2. Hypercholesterolemia. 3. Coronary artery disease Abnormal stress test December 25, 2015, ischemia in LCx territory, low-intermediate risk, exe rcise time 1:36 minutes. Heart catheterization 2013, 2-vessel disease with patent stents in the LAD and RCA. Nega tive FFR in the RCA, 0.87. LAD on May 03, 2008, a Xience 3.5 x 8 mm. LAD on January 06, 2007, Taxus 3 x 16 mm at 12 atmospheres RCA in December 2005 Taxus 3.5 x 16 at 15 atmospheres. RCA in February 2005, Cypher 3.5 x 33 mm postdilated to 4 x 22 4. Gastroesophageal reflux disease. 5. Arthritis. 6. History of tobacco use. 7. COPD. Presented today for follow-up with new onset of Angina class III. Stress test is low to intermediate risk. I will refer the patient for left heart catheterization through the right radial artery. In formed consent was obtained. Further recommendations to follow the heart catheterization. The following portions of the patient's history were reviewed and updated as appropriate: Allergies, current medications. Family history, past medical history, past social history, past surgical history. Problem list. Kosta Jarquin MD 01/07/2016 documented in this encount er Plan of Treatment +--------+ + + + + | Date | Type | Specialty | Care Team | Description | +--------+ + + + + | 02/25/ | Office | Pulmonology | Андрей Lee MD | | | 2019 | Visit | | [address] | | | | | | [place], [place] | | | | | | [phone] | | | | | | | | +--------+ + + + + | 08/12/ | Procedure | Cardiology | | | | 2020 | visit | | | | +--------+ + + + + documented as of this encounter Procedures + +--------+ + + + | Procedure Name | Priori | Date/Time | Associated Diagnosis | Comments | | | ty | | | | + +--------+ + + + | ECG 12 LEAD | Routin | 01/09/2016 | | Results for this | | | e | 9:08 AM | | procedure are in the | | | | PDT | | results section. | + +--------+ + + + | ACTIVATED CLOTTING | Routin | 01/09/2016 | | Results for this | | TIME | e | 8:17 AM | | procedure are in the | | | | PDT | | results section. | + +--------+ + + + | ACTIVATED CLOTTING | Routin | 01/09/2016 | | Results for this | | TIME | e | 8:06 AM | | procedure are in the | | | | PDT | | results section. | + +--------+ + + + | EXTERNAL LAB: CBC | Routin | 01/09/2016 | | Results for this | | | e | 6:32 AM | | procedure are in the | | | | PDT | | results section. | + +--------+ + + + | BASIC METABOLIC | Routin | 01/09/2016 | | Results for this | | PANEL | e | 6:32 AM | | procedure are in the | | | | PDT | | results section. | + +--------+ + + + documented in this encounter Results ECG 12 lead (01/09/2016 9:08 AM PDT) + + + + + + | Component | Value | Ref Range | Performed | Pathologist | | | | | At | Signature | + + + + + + | DIAGNOSIS: | Normal sinus rhythmRight | | EXTERNAL | | | | bundle branch | | LAB | | | | blockNonspecific ST | | | | | | and/or T wave | | | | | | abnormalitiesWhen | | | | | | compared with ECG of | | | | | | 25-DEC-2015 09:04,T wave | | | | | | inversion now evident | | | | | | in Inferior | | | | | | leadsConfirmed by HEMA | | | | | | MY ([id number]) on 01/09/2016 | | | | | | 12:02:09 PM | | | | + + + + + + + + | Specimen | + + | | + + + + + | Narrative | Performed At | + + + | Historically converted procedure from [facility] [employer] environment | EXTERNAL LAB | + + + + +---------+ + + | Performing | Address | City/State/Zipcode | Phone Number | | Organization | | | | + +---------+ + + | EXTERNAL LAB | | | | + +---------+ + + Activated clotting time (01/09/2016 8:17 AM PDT) + + + + + + | Component | Value | Ref Range | Performed | Pathologist | | | | | At | Signature | + + + + + + | Activated | 233 (H)Comment: Testing | 74 - 137 | EXTERNAL | | | Clotting | performed at [facility];888 | seconds | LAB | | | time, POC | [address];[place] | | | | | | [address] | | | | + + + + + + + + | Specimen | + + | | + + + +---------+ + + | Performing | Address | City/State/Zipcode | Phone Number | | Organization | | | | + +---------+ + + | EXTERNAL LAB | | | | + +---------+ + + Activated clotting time (01/09/2016 8:06 AM PDT) + + + + + + | Component | Value | Ref Range | Performed | Pathologist | | | | | At | Signature | + + + + + + | Activated | 165 (H)Comment: Testing | 74 - 137 | EXTERNAL | | | Clotting | performed at [facility];[address] | seconds | LAB | | | time, POC | [address];[place], [place] | | | | | | [address] | | | | + + + + + + + + | Specimen | + + | | + + + +---------+ + + | Performing | Address | City/State/Zipcode | Phone Number | | Organization | | | | + +---------+ + + | EXTERNAL LAB | | | | + +---------+ + + External Lab: CBC (01/09/2016 6:32 AM PDT) + + + + + + | Component | Value | Ref Range | Performed | Pathologist | | | | | At | Signature | + + + + + + | WBC | 10.52Comment: Testing | 3.80 - 11.00 | EXTERNAL | | | | performed at [facility];888 | K/uL | LAB | | | | [address];[place], [place] | | | | | | [address] | | | | + + + + + + | Non- | 5.00Comment: Testing | 4.20 - 5.70 | EXTERNAL | | | Red Blood | performed at [facility];888 | M/uL | LAB | | | Cells | [address];[place] | | | | | Counted | [address] | | | | + + + + + + | Hemoglobin | 15.7Comment: Testing | 13.2 - 17.0 | EXTERNAL | | | | performed at [facility];888 | g/dL | LAB | | | | [address];[place] | | | | | | [address] | | | | + + + + + + | Hematocrit, | 45.0Comment: Testing | 39.0 - 50.0 % | EXTERNAL | | | POC | performed at [facility];[address] | | LAB | | | | [address];[place] | | | | | | [address] | | | | + + + + + + | MCV | 90.0Comment: Testing | 80.0 - 100.0 fl | EXTERNAL | | | | performed at [facility];[address] | | LAB | | | | [address];[place] | | | | | | [address] | | | | + + + + + + | MCH | 31.5Comment: Testing | 27.0 - 34.0 pg | EXTERNAL | | | | performed at [facility];[address] | | LAB | | | | [address];[place] | | | | | | [address] | | | | + + + + + + | MCHC | 35.0Comment: Testing | 32.0 - 35.5 | EXTERNAL | | | | performed at [facility];888 | g/dL | LAB | | | | [address];[place] | | | | | | [address] | | | | + + + + + + | RDW-CV | 45.9Comment: Testing | 37 - 53 fl | EXTERNAL | | | | performed at [facility];[address] | | LAB | | | | [address];[place] | | | | | | [address] | | | | + + + + + + | Platelet | 220Comment: Testing | 150 - 400 K/uL | EXTERNAL | | | Count | performed at [facility];[address] | | LAB | | | Plasma | [address];[place] | | | | | | [address] | | | | + + + + + + | MPV | 8.0Comment: Testing | fl | EXTERNAL | | | | performed at [facility];[address] | | LAB | | | | [address];[place] | | | | | | [address] | | | | + + + + + + | Differentia | AUTOMATEDComment: | | EXTERNAL | | | l Type | Testing performed at | | LAB | | | | [facility];[address] | | [address];[place] [address] | | | | + + + + + + | % Segmented | 77.92Comment: Testing | % | EXTERNAL | | | | performed at [facility];[address] | | LAB | | | Neutrophils | [address];[place] | | | | | | [address] | | | | + + + + + + | % | 12.53Comment: Testing | % | EXTERNAL | | | Lymphocytes | performed at [facility];[address] | | LAB | | | | [address];[place] | | | | | | [address] | | | | + + + + + + | % Monocytes | 6.69Comment: Testing | % | EXTERNAL | | | | performed at [facility];[address] | | LAB | | | | [address];[place] | | | | | | [address] | | | | + + + + + + | % | 2.00Comment: Testing | % | EXTERNAL | | | Eosinophils | performed at [facility];[address] | | LAB | | | | [address];[place] | | | | | | [address] | | | | + + + + + + | % Basophils | 0.86Comment: Testing | % | EXTERNAL | | | | performed at [facility];[address] | | LAB | | | | [address];[place] | | | | | | [address] | | | | + + + + + + | Absolute | 8.20 (H)Comment: Testing | 1.90 - 7.40 | EXTERNAL | | | Segmented | performed at [facility];888 | K/uL | LAB | | | Neutrophils | [address];[place] | | | | | | [address] | | | | + + + + + + | Absolute | 1.32Comment: Testing | 1.00 - 3.90 | EXTERNAL | | | Lymphocytes | performed at [facility];888 | K/uL | LAB | | | | [address];[place] | | | | | | [address] | | | | + + + + + + | Absolute | 0.70Comment: Testing | 0.00 - 0.80 | EXTERNAL | | | Monocytes | performed at [facility];[address] | K/uL | LAB | | | | [address];[place] | | | | | | [address] | | | | + + + + + + | Absolute | 0.21Comment: Testing | 0.00 - 0.50 | EXTERNAL | | | Eosinophils | performed at [facility];888 | K/uL | LAB | | | | [address];[place] | | | | | | [address] | | | | + + + + + + | Absolute | 0.09Comment: Testing | 0.00 - 0.10 | EXTERNAL | | | Basophils | performed at [facility];[address] | K/uL | LAB | | | | [address];[place] | | | | | | [address] | | | | + + + + + + + + | Specimen | + + | Blood specimen | | (specimen) | + + + +---------+ + + | Performing | Address | City/State/Zipcode | Phone Number | | Organization | | | | + +---------+ + + | EXTERNAL LAB | | | | + +---------+ + + Basic Metabolic Panel (01/09/2016 6:32 AM PDT) + + + + + + | Component | Value | Ref Range | Performed | Pathologist | | | | | At | Signature | + + + + + + | Na | 141Comment: NOTE NEW | 135 - 145 | EXTERNAL | | | | REFERENCE RANGETesting | mmol/L | LAB | | | | performed at [facility];[address] | | | | | | [address];[place] | | | | | | [address] | | | | + + + + + + | K | 3.4 (L)Comment: SLT | 3.5 - 4.9 | EXTERNAL | | | | HEMOLYSISTesting | mmol/L | LAB | | | | performed at [facility];[address] | | | | | | [address];[place] | | | | | | [address] | | | | + + + + + + | Cl | 107Comment: Testing | 99 - 109 mmol/L | EXTERNAL | | | | performed at [facility];[address] | | LAB | | | | [address];[place] | | | | | | [address] | | | | + + + + + + | CO2 | 26Comment: Testing | 23 - 32 mmol/L | EXTERNAL | | | | performed at [facility];[address] | | LAB | | | | [address];[place] | | | | | | [address] | | | | + + + + + + | Anion Gap | 11Comment: Testing | 5 - 20 mmol/L | EXTERNAL | | | | performed at [facility];[address] | | LAB | | | | [address];[place] | | | | | | [address] | | | | + + + + + + | Glucose, | 96Comment: Testing | 65 - 99 mg/dL | EXTERNAL | | | Fasting | performed at [facility];[address] | | LAB | | | | [address];[place] | | | | | | [address] | | | | + + + + + + | BUN | 10Comment: Testing | 8 - 25 mg/dL | EXTERNAL | | | | performed at [facility];[address] | | LAB | | | | [address];[place] | | | | | | [address] | | | | + + + + + + | Creatinine | 0.81Comment: Testing | 0.70 - 1.30 | EXTERNAL | | | | performed at [facility];[address] | mg/dL | LAB | | | | [address];[place] | | | | | | [address] | | | | + + + + + + | BUN/Creatin | 12Comment: Testing | | EXTERNAL | | | ine Ratio | performed at [facility];[address] | | LAB | | | | [address];[place] | | | | | | [address] | | | | + + + + + + | Calcium | 8.7Comment: Testing | 8.5 - 10.5 | EXTERNAL | | | | performed at [facility];[address] | mg/dL | LAB | | | | [address];[place] | | | | | | [address] | | | | + + + + + + | Estimated | >60Comment: GFR <60: | mL/min/1.73m2 | EXTERNAL | | | GFR | CHRONIC KIDNEY DISEASE, | | LAB | | | | IF FOUND OVER A 3 MONTH | | | | | | PERIOD.GFR <15: KIDNEY | | | | | | FAILURE.FOR | | | | | | AMERICANS, MULTIPLY THE | | | | | | CALCULATED GFR BY | | | | | | 1.210.Testing performed | | | | | | at [facility];[address] [place] [address] | | | | | | [facility];[place] [address] | | | | + + + + + + + + | Specimen | + + | Blood specimen | | (specimen) | + + + +---------+ + + | Performing | Address | City/State/Zipcode | Phone Number | | Organization | | | | + +---------+ + + | EXTERNAL LAB | | | | + +---------+ + + documented in this encounter Visit Diagnoses + + | Diagnosis | + + | Coronary artery disease involving [place] coronary artery of [place] heart with angina | | pectoris (HCC) | + + | Essential hypertension with goal blood pressure less than 130/80 | + + | Hyperlipidemia, unspecified hyperlipidemia type | + + | Abnormal nuclear stress test Other nonspecific abnormal cardiovascular system | | function study | + + documented in this encounter
--- OUTSIDE RECORDS SUMMARY | ~2020-02-14 | XMS | Encounter Summary ---
Demographics + + + | Address | [address] | | | [place] [address] | + + + | Home Phone | | + + + | Preferred Language | Unknown | + + + | Marital Status | | + + + | Adventism Affiliation | Unknown | + + + | Race | Unknown | + + + | Ethnic Group | Unknown | + + + Author + + + | Author | [facility] | | | and [place] | + + + | Organization | [facility] | | | and [place] | + + + | Address | Unknown | + + + | Phone | Unavailable | + + + Support + + +---------+ + | Name | Relationship | Address | Phone | + + +---------+ + | Torri Sanchez | ECON | Unknown | | + + +---------+ + | [facility] | ECON | Unknown | | + + +---------+ + Care Team Providers + +------+ + | Care Outsole Molder Name | Role | Phone | + [...] | +--------+ + + + + | 04/12/ | Procedure | [facility] | | History of loop | | 2019 | visit | CARDIOLOGY [place] | | recorder (Primary | | | | [address] | | Dx) | | | | [place], [place] | | | | | | [address] | | | | | | [phone] | | | +--------+ + + + + Social History + +-------+ +--------+------+ | Tobacco Use | Types | Packs/Day | Years | Date | | | | | Used | | + +-------+ +--------+------+ | Current Every Day | | 1 | | | | Smoker | | | | | + +-------+ +--------+------+ + + + | Sex Assigned at | Date Recorded | | | | + + + | Not on file | | + + + documented as of this encounter Procedure Notes Kristen Hudson, Environmental Health And Safety Intern - 04/12/2019 8:10 AM PDTAssociated Order(s): DEVICE INT ERROGATION- REMOTEProcedure(s): [...] were no bradycardic episodes noted during the tor period. Pauses: No pauses greater than 2.0 seconds were noted. Atrial events: Atrial high rate episodes (AT or AF): None Confirmed episodes of atrial flutter or atrial fibrillation: No Known history of atrial flutter or atrial fibrillation: No Current antithrombotic therapy including: N/A Ventricular events: Ventricular high rate episodes: None. Symptoms: Symptoms prompting device activation include 03/18/2019 and 03/28/2019 and did not correlate with significant arrhythmias. Additional comments: None. Follow up: The next scheduled interrogation will be in 5 weeks. Impression: 1. No significant bradyarrhythmias were noted. 2. No significant tachyarrhythmias were noted. 3. Patient activated episodes correspond to no significant arrhythmias. Reviewed by: Kristen Hudson, Device Clinic Tech Associated attestation - Kosta Jarquin MD - 04/12/2019 4:14 PM PDTNo significant arrhythm ias. Patient symptoms correlated with sinus rhythm.documented in this encounter Plan of Treatment +--------+ + + + + | Date | Type | Specialty | Care Team | Description | +--------+ + + + + | 02/25/ | Office | Pulmonology | Андрей Lee MD | | | 2019 | Visit | | [address] | | | | | | [place] | | | | | | [phone] | | | | | | | [...] + + | DEVICE | Routin | 04/12/2019 | History of loop | Results for this | | INTERROGATION- | e | 12:00 AM | recorder | procedure are in the | | REMOTE | | PDT | | results section. | + +--------+ + + + documented in this encounter Results Device Interrogation - Remote (04/12/2019 12:00 AM PDT) + + + | Narrative | Performed At | + + + | Kristen Landeros | [facility] | | Tristan Environmental Health And Safety Intern 04/12/2019 15:57IMPLANTABLE LOOP | | | RECORDER REMOTE INTERROGATION REPORT Name: Carla Sanchez Jr. | | | PCP: Deidre Stiles MD : 1945MRN: [id number] | | | Primary cardiology provider: Kosta [...] | Ventricular high rate episodes: None. Symptoms: Symptoms | | | prompting device activation include 03/18/2019 and 03/28/2019 and did | | | not correlate with significant arrhythmias. Additional comments: | | | None. Follow up: The next scheduled interrogation will be in 5 weeks. | | | Impression:1. No significant bradyarrhythmias were noted.2. No | | | significant tachyarrhythmias were noted.3. Patient activated episodes | | | correspond to no significant arrhythmias. Reviewed by: Kristen Hudson, | | | Device Clinic Tech | | |Atrial events: Atrial high rate [...] None. | | | | | |Symptoms: Symptoms prompting device activation include 03/18/2019 | | |and 03/28/2019 and did not correlate with significant arrhythmias. | | | | | | | | |Additional comments: [...] | |Reviewed by: Kristen Hudson, Device Clinic Tech | | | | | | | | | | | | | | | | | | | | + + + + + | Procedure Note | + + | Kristen Hudson, Environmental Health And Safety Intern - 04/12/2019 8:10 AM PDT Formatting of this note | | might be different from the original.IMPLANTABLE LOOP RECORDER REMOTE INTERROGATION | | REPORT Name: Carla Sanchez Jr. PCP: Deidre Stiles MD : | | 1945MRN: [id number] Primary cardiology provider: Kosta Jarquin Primary | | electrophysiology provider: None Mode of interrogation: RemoteDevice: | | MedtronicBattery Status: OKInterrogation resultsPlease see the full interrogation report | | attached to this document. Bradycardia: Bradycardic episodes: There were no bradycardic | | episodes noted during the monitoring period. Pauses: No pauses greater than 2.0 seconds | | were noted. Atrial events: Atrial high rate episodes (AT or AF): None Confirmed | | episodes of atrial flutter or atrial fibrillation: NoKnown history of atrial flutter or | | atrial fibrillation: No Current antithrombotic therapy including: N/A Ventricular | | events: Ventricular high rate episodes: None. Symptoms: Symptoms prompting device | | activation include 03/18/2019 and 03/28/2019 and did not correlate with significant | | arrhythmias. Additional comments: None. Follow up: The next scheduled interrogation | | will be in 5 weeks. Impression:1. No significant bradyarrhythmias were noted.2. No | | significant tachyarrhythmias were noted.3. Patient activated episodes correspond to no | | significant arrhythmias.Reviewed by: Kristen Hudson, Device Clinic Tech | | | |Bradycardia: Bradycardic episodes: There were no bradycardic episodes noted during the mariama toring period. | | | |Pauses: No pauses greater than 2.0 seconds were noted. | | | |Atrial events: Atrial high rate episodes (AT or AF): None | | | |Confirmed episodes of atrial flutter or atrial fibrillation: No | | | |Known history of atrial flutter or atrial fibrillation: No | | | |Current antithrombotic therapy including: N/A | | | | | |Ventricular events: Ventricular high rate episodes: None. | | | |Symptoms: Symptoms prompting device activation include 03/18/2019 and 03/28/2019 and did not correlate with significant arrhythmias. | | | |Additional comments: None. | |Follow up: The next scheduled interrogation will be in 5 weeks. | | | |Impression: | |1. No significant bradyarrhythmias were noted. | |2. No significant tachyarrhythmias were noted. | |3. Patient activated episodes correspond to no significant arrhythmias. | | | |Reviewed by: Kristen Hudson, Device Clinic Tech | + + + +---------+ + + [...]
--- OUTSIDE RECORDS SUMMARY | ~2020-02-14 | XMS | Encounter Summary ---
Demographics + + + | Address | [address] | | | [place] [address] | + + + | Home Phone | | + + + | Preferred Language | Unknown | + + + | Marital Status | | + + + | Spiritism Affiliation | Unknown | + + + | Race | Unknown | + + + | Ethnic Group | Unknown | + + + Author + + + | Author | [facility] | | | and [place] | + + + | Organization | [facility] | | | and [place] | + + + | Address | Unknown | + + + | Phone | Unavailable | + + + Support + + +---------+ + | Name | Relationship | Address | Phone | + + +---------+ + | Torri Sanchez | ECON | Unknown | | + + +---------+ + | [facility] | ECON | Unknown | | + + +---------+ + Care Team Providers + +------+ + | Care Drawer In Stitch Bonding Machine Name | Role | Phone | + [...] | +--------+ + + + + | 08/02/ | Procedure | [facility] | | History of loop | | 2020 | visit | CARDIOLOGY [place] | | recorder (Primary | | | | [address] | | Dx) | | | | [place], [place] | | | | | | [address] | | | | | | [phone] | | | +--------+ + + + [...] of this encounter Procedure Notes Kristen Hudson, Airline Manager - 08/02/2019 8:00 AM PSTAssociated Order(s): DEVICE INT ERROGATION- [...] Associated attestation - Kosta Jarquin MD - 10/16/2019 4:14 PM PDTNo significant arrhythm ias.documented in this encounter Plan of Treatment +--------+ + + + + | Date | Type | Specialty | Care Team | Description | +--------+ + + + + | 02/25/ | Office | Pulmonology | Андрей Lee MD | | | 2019 | Visit | | [address] | | | | | | [place], [place] | | | | | | [...] + + | DEVICE | Routin | 08/02/2019 | History of loop | Results for this | | INTERROGATION- | e | 8:00 AM | recorder | procedure are in the | | REMOTE | | PST | | results section. | + +--------+ + + + documented in this encounter Results Device Interrogation - Remote (08/02/2019 8:00 AM PST) + + + | Narrative | Performed At | + + + | Kristen Landeros | DEB | | Tristan Airline Manager 08/02/2019 9:26 AM IMPLANTABLE LOOP | | | RECORDER REMOTE INTERROGATION REPORT Name: Carla Calloway Laura Narvaez | | | PCP: Deidre Stiles MD : 1945MRN: [id number] | | | Primary cardiology provider: Kosta [...]
--- OUTSIDE RECORDS SUMMARY | ~2020-02-14 | XMS | Encounter Summary ---
Demographics + + + | Address | [address] | | | [place] [address] | + + + | Home Phone | | + + + | Preferred Language | Unknown | + + + | Marital Status | | + + + | Gnosticism Affiliation | Unknown | + + + | Race | Unknown | + + + | Ethnic Group | Unknown | + + + Author + + + | Author | [facility] | | | and [place] | + + + | Organization | [facility] | | | and [place] | + + + | Address | Unknown | + + + | Phone | Unavailable | + + + Support + + +---------+ + | Name | Relationship | Address | Phone | + + +---------+ + | Torri Sanchez | ECON | Unknown | | + + +---------+ + | [facility] | ECON | Unknown | | + + +---------+ + Care Team Providers + +------+ + | Care Central Aisle Cashier Name | Role | Phone | + +------+ + | Deidre Urbano | PCP | | | MD | | | + +------+ + Reason for Visit + + + | Reason | Comments | + + + | Device Check | Loop Alert | | (Remote) | | + + + Encounter Details +--------+ + + + + | Date | Type | Department | Care Team | Description | +--------+ + + + + | 04/17/ | Documentati | [facility] | Kristen Hudson, | Device Check | | 2019 | on | CARDIOLOGY [place] | Sightseeing Guide | (Remote) (Loop | | | | [address] | | Alert) | | | | [place] | | | | | | [address] | | | | | | [phone] | | | +--------+ + + + [...] of this encounter Procedure Notes Kristen Hudson, Sightseeing Guide - 04/17/2019 10:17 AM PDTAssociated Order(s): DEVICE INT ERROGATION- REMOTEProcedure(s): DEVICE INTERROGATION- REMOTEPre-Procedure Diagnose(s): Histo ry of loop recorderALERT REPORT Received notification for a patient activated symptom that occurred on 04/16/2019 at 11:20. Please see attached rhythm strip. Medications: ASA 81 mgElectronically signed by Kristen Hudson, Sightseeing Guide at 2018 10:21 AM PDTdocumented in this encounter Plan of Treatment +--------+ + + + + | Date | Type | Specialty | Care Team | Description | +--------+ + + + + | 02/25/ | Office | Pulmonology | Андрей Lee MD | | | 2019 | Visit | | [address] | | | | | | [place] | | | | | | [address] | | | | | | | [...] + + | DEVICE | Routin | 04/17/2019 | History of loop | Results for this | | INTERROGATION- | e | 10:17 AM | recorder | procedure are in the | | REMOTE | | PDT | | results section. | + +--------+ + + + documented in this encounter Results Device Interrogation - Remote (04/17/2019 10:17 AM PDT) + + + | Narrative | Performed At | + + + | Kristen Hudson, Sightseeing Guide 04/17/2019 10:21 ALERT | [facility] | | REPORT Received notification for a patient activated symptom that | | | occurred on 04/16/2019 at 11:20. Please see attached rhythm strip. | | | Medications: ASA 81 mg | | + + + + +---------+ [...]
--- OUTSIDE RECORDS SUMMARY | ~2020-02-14 | XMS | Encounter Summary ---
Demographics + + + | Address | [address] | | | [place] [address] | + + + | Home Phone | | + + + | Preferred Language | Unknown | + + + | Marital Status | | + + + | Holiness Affiliation | Unknown | + + + | Race | Unknown | + + + | Ethnic Group | Unknown | + + + Author + + + | Author | [facility] | | | and [place] | + + + | Organization | [facility] | | | and [place] | + + + | Address | Unknown | + + + | Phone | Unavailable | + + + Support + + +---------+ + | Name | Relationship | Address | Phone | + + +---------+ + | Torri Sanchez | ECON | Unknown | | + + +---------+ + | [facility] | ECON | Unknown | | + + +---------+ + Care Team Providers + +------+ + | Care Engagement Executive Name | Role | Phone | + [...] | +--------+ + + + + | 09/17/ | Procedure | [facility] | | History of loop | | 2020 | visit | CARDIOLOGY [place] | | recorder (Primary | | | | [address] | | Dx) | | | | [place] | | | | | | [address] | | | | | | [phone] | | | +--------+ + + + [...] of this encounter Procedure Notes Kristen Hudson, Lumber Racker - 09/18/2019 8:00 AM PSTAssociated Order(s): DEVICE INT ERROGATION- REMOTEProcedure(s): DEVICE INTERROGATION- REMOTEPre-Procedure Diagnose(s): Histo ry of loop recorderALERT REPORT Received notification for patient triggered symptom that occurred on 09/16/2019 at 12:53. P lease see attached EGM. Medications: ASA Will continue to monitor. P ST Associated attestation - Kosta Jarquin MD - 09/18/2019 5:23 PM PSTPatient symptoms correl ated with normal sinus rhythm.documented in this encounter Plan of Treatment +--------+ + + + + | Date | Type | Specialty | Care Team | Description | +--------+ + + + + | 02/25/ | Office | Pulmonology | Андрей Lee MD | | | 2019 | Visit | | [address] | | | | | | [place] | | | | | | [address] | | | | | | | [...] + + | DEVICE | Routin | 09/18/2019 | History of loop | Results for this | | INTERROGATION- | e | 8:00 AM | recorder | procedure are in the | | REMOTE | | PST | | results section. | + +--------+ + + + documented in this encounter Results Device Interrogation - Remote (09/18/2019 8:00 AM PST) + + + | Narrative | Performed At | + + + | Kristen Hudson, Lumber Racker 09/18/2019 10:10 AM ALERT | [facility] | | REPORT Received notification for patient triggered symptom that | | | occurred on 09/16/2019 at 12:53. Please see attached EGM. | | | Medications: ASA Will continue to monitor. | | + + + + +---------+ [...]
--- OUTSIDE RECORDS SUMMARY | ~2020-02-14 | XMS | Encounter Summary ---
Demographics + + + | Address | [address] | | | [place] [address] | + + + | Home Phone | | + + + | Preferred Language | Unknown | + + + | Marital Status | | + + + | Judaism Affiliation | Unknown | + + + | Race | Unknown | + + + | Ethnic Group | Unknown | + + + Author + + + | Author | [facility] | | | and [place] | + + + | Organization | [facility] | | | and [place] | + + + | Address | Unknown | + + + | Phone | Unavailable | + + + Support + + +---------+ + | Name | Relationship | Address | Phone | + + +---------+ + | Torri Sanchez | ECON | Unknown | | + + +---------+ + | [facility] | ECON | Unknown | | + + +---------+ + Care Team Providers + +------+ + | Care Engineering Test Specialist Name | Role | Phone | + +------+ + | Deidre Urbano | PCP | | | MD | | | + +------+ + Reason for Visit + + + | Reason | Comments | + + + | Device Check | Loop Alert - symptom | | (Remote) | | + + + Encounter Details +--------+ + + + + | Date | Type | Department | Care Team | Description | +--------+ + + + + | 09/20/ | Procedure | [facility] | | History of loop | | 2020 | visit | CARDIOLOGY [place] | | recorder (Primary | | | | [address] | | Dx) | | | | [place], [place] | | | | | | [address] | | | | | | [phone] | | | +--------+ + + + [...] of this encounter Procedure Notes Kristen Hudson, Nail Making Machine Setter - 09/21/2019 8:00 AM PSTAssociated Order(s): DEVICE INT ERROGATION- REMOTEProcedure(s): DEVICE INTERROGATION- REMOTEPre-Procedure Diagnose(s): Histo ry of loop recorderALERT REPORT Received notification for a patient triggered symptom that occurred on 09/20/2019 at 12:19. EGM is attached for review, but does not appear to correlate to any significant arrhythmias. Medications: ASA Will continue to monitor T Associated attestation - Kosta Jarquin MD - 09/29/2019 1:57 PM PDTSymptom correlated with normal sinus rhythm. documented in this encounter Plan of Treatment +--------+ + + + + | Date | Type | Specialty | Care Team | Description | +--------+ + + + + | 02/25/ | Office | Pulmonology | Андрей Lee MD | | | 2019 | Visit | | [address] | | | | | | [place] | | | | | | [address] | | | | | | | [...] + + | DEVICE | Routin | 09/21/2019 | History of loop | Results for this | | INTERROGATION- | e | 8:00 AM | recorder | procedure are in the | | REMOTE | | PST | | results section. | + +--------+ + + + documented in this encounter Results Device Interrogation - Remote (09/21/2019 8:00 AM PST) + + + | Narrative | Performed At | + + + | Kristen Hudson, Nail Making Machine Setter 09/21/2019 8:14 AM ALERT | [facility] | | REPORT Received notification for a patient triggered symptom that | | | occurred on 09/20/2019 at 12:19. EGM is attached for review, but | | | does not appear to correlate to any significant arrhythmias. | | | Medications: ASA Will continue to monitor | | + + + + +---------+ [...]
--- OUTSIDE RECORDS SUMMARY | ~2020-02-14 | XMS | Encounter Summary ---
Demographics + + + | Address | [address] | | | [place] [address] | + + + | Home Phone | | + + + | Preferred Language | Unknown | + + + | Marital Status | | + + + | Mu-Ism Affiliation | Unknown | + + + | Race | Unknown | + + + | Ethnic Group | Unknown | + + + Author + + + | Author | [facility] | | | and [place] | + + + | Organization | [facility] | | | and [place] | + + + | Address | Unknown | + + + | Phone | Unavailable | + + + Support + + +---------+ + | Name | Relationship | Address | Phone | + + +---------+ + | Torri Langran | ECON | Unknown | | + + +---------+ + | [facility] | ECON | Unknown | | + + +---------+ + Care Team Providers + +------+ + | Care Ore Roaster Name | Role | Phone | + +------+ + PCP | Unavailable | + +------+ + Encounter Details +--------+ + + + + | Date | Type | Department | Care Team | Description | +--------+ + + + + | 01/10/ | Hospital | [facility] | Filiberto Alan, | Unspecified | | 2008 - | Encounter | CONVERSION [address] | MD [address] | Perichondritis and | | | | [address] | [address], | Chondritis of Pinna | | 01/17/ | | [place], [place] | [place] [address] | | | 2008 | | [address] | [phone] | | | | | [phone] | | | +--------+ + + + [...] [place] | | | | | | [address] | | | | | | | | +--------+ + + + + | 02/27/ | Procedure | Cardiology | | | | 2019 | visit | | | | +--------+ + + + + documented as of this encounter Visit Diagnoses + + | Diagnosis | + + | Perichondritis of pinna, unspecified | + + documented in this encounter"
--- OUTSIDE RECORDS SUMMARY | ~2020-02-14 | XMS | Encounter Summary ---
Demographics + + + | Address | [address] | | | [place] [address] | + + + | Home Phone | | + + + | Preferred Language | Unknown | + + + | Marital Status | | + + + | Mormon Affiliation | Unknown | + + + | Race | Unknown | + + + | Ethnic Group | Unknown | + + + Author + + + | Author | [facility] | | | and [place] | + + + | Organization | [facility] | | [...] Team Providers + +------+ + | Care Handstitching Machine Armhole Feller Name | Role | Phone | + +------+ + | Deidre Urbano | PCP | | | MD | | | + +------+ + Encounter Details +--------+ + + + + | Date | Type | Department | Care Team | Description | +--------+ + + + + | 07/25/ | Orders Only | [facility] | Conversion | | | 2019 | | CONVERSION [address] | Transaction, | | | | | [address] | Provider Unknown | | | | | [place] | [phone] | | | | | [address] | | | | | | [phone] | | | +--------+ + + + [...] [place] | | | | | | [address] | | | | | | | | +--------+ + + + + | 02/27/ | Procedure | Cardiology | | | | 2019 | visit | | | | +--------+ + + + + documented as of this encounter Visit Diagnoses Not on filedocumented in this encounter"
--- OUTSIDE RECORDS SUMMARY | ~2020-02-14 | XMS | Encounter Summary ---
Demographics + + + | Address | [address] | | | [place] [address] | + + + | Home Phone | | + + + | Preferred Language | Unknown | + + + | Marital Status | | + + + | Jainism Affiliation | Unknown | + + + | Race | Unknown | + + + | Ethnic Group | Unknown | + + + Author + + + | Author | [facility] | | | and [place] | + + + | Organization | [facility] | | | and [place] | + + + | Address | Unknown | + + + | Phone | Unavailable | + + + Support + + +---------+ + | Name | Relationship | Address | Phone | + + +---------+ + | Torri Sanchez | ECON | Unknown | | + + +---------+ + | [facility] | ECON | Unknown | | + + +---------+ + Care Team Providers + +------+ + | Care Journeyman Mill[place] Name | Role | Phone | + +------+ + | Deidre Urbano | PCP | | | MD | | | + +------+ + Encounter Details +--------+ + + + + | Date | Type | Department | Care Team | Description | +--------+ + + + + | 07/28/ | Orders Only | [facility] | Kosta Jarquin MD | | | 2016 | | CARDIOLOGY [place] | [address] | | | | | [address] | [place] [address] | | | | | [place], [place] | [phone] | | | | | [address] | | | | | | [phone] | | | +--------+ + + + [...] [place] | | | | | | [id number] | | | | | | | | +--------+ + + + + | 02/27/ | Procedure | Cardiology | | | | 2019 | visit | | | | +--------+ + + + + documented as of this encounter Visit Diagnoses Not on filedocumented in this encounter"
--- OUTSIDE RECORDS SUMMARY | ~2020-02-14 | XMS | Encounter Summary ---
Demographics + + + | Address | [address] | | | [place] [address] | + + + | Home Phone | | + + + | Preferred Language | Unknown | + + + | Marital Status | | + + + | Pentecostal Affiliation | Unknown | + + + | Race | Unknown | + + + | Ethnic Group | Unknown | + + + Author + + + | Author | [facility] | | | and [place] | + + + | Organization | [facility] | | [...] Team Providers + +------+ + | Care Political Geographer Name | Role | Phone | + +------+ + PCP | Unavailable | + +------+ + Encounter Details +--------+ + + + + | Date | Type | Department | Care Team | Description | +--------+ + + + + | 12/11/ | Hospital | [facility] | Conversion | | | 2014 | Encounter | [facility]ICAL CENTER | Transaction, | | | | | CLINICAL DECISION | Provider Unknown | | | | | [address] | [phone] | | | | | [place], [place] | | | | | | [address] | Kosta Jarquin MD | | | | | [phone] | [address] | | | | | | [place] [address] | | | | | | [phone] | | | | | | | [...] Progress Notes Conversion Transaction, Provider Unknown - 06/28/2014 4:05 PM PSTFormatting of this note m ight be different from the original. Nurse Progress Note by Delmis Avendaño V RN at 06/28/141604 Author: Delmis Wing RN Service: (none) Author Type: Registered Nurse Filed: 06/28/145 Date of Service: 06/28/141604 Status: Signed Restaurant Server: Delmis Avendaño V, RN (Registered Nurse) Pt d/c instructions given, d/c to lobby in [place], pt belongings in hand. docume nted in this encounter H&P Notes Yumiko Diaz PA - 06/28/2014 8:10 AM PSTFormatting of this note might be diffe rent from the original. H&P by Yumiko Diaz PA-C at 06/28/14809 Author: Yumiko Diaz PA-C Service: Cardiology Author Type: Physician Creative Designer - Certified Filed: 06/28/14810 Date of Service: 06/28/14809 Status: Signed Restaurant Server: Yumiko Diaz PA-C (Physician Creative Designer - Certified) [facility] Service: Cardiology Pre-Operative History & Physical Interval Update There have been no significant clinical changes since the completion of the following H&P. Moderate Sedation Presedation Assessment completed. ASA Classification: ASA 3: Patient with a severe systemic disease Yumiko Diaz PA-C 06/28/2014 *CORE MEASURES REMINDER: If the patient has a known or suspected infection prior to surger y, please add diagnosis to the problem list (consider: Infection 136.9). Date of visit: 06/13/2014[facility] Care Physician: CYDNEY FISCHER CHIEF COMPLAINT: Chief Complaint Patient presents with Follow-up yearly Hyperlipidemia Hypertension HISTORY OF PRESENT ILLNESS: Mr. Sanchez is a 68-year-old gentleman who presents today for followup of his coronary marly ry disease. Since last visit he has noticed an ache in his chest that happens with exertion or stress or excitement. This pain usually lasts 15 minutes to 2 hours and improves with lyi ng down or sitting down. This started about a year ago; however, it has progressed to occurr ing every other day and is now coming on with less exertion. He denies radiation of the pain . He has noted increased shortness of breath and lower extremity edema over the last 1 month . He sleeps with 1 pillow and denies any orthopnea. REVIEW OF SYSTEMS: Negative except for pertinent items noted in HPI. Review of Systems Constitutional: Negative for fatigue. HENT: Negative for nosebleeds. Eyes: Negative for visual disturbance. Respiratory: Shortness of breath. Cardiovascular: Chest pain. Edema. Gastrointestinal: Negative for nausea, vomiting, abdominal pain and blood in stool. Genitourinary: Negative for hematuria. Musculoskeletal: Negative for myalgias, back pain and arthralgias. Skin: Negative for color change. Neurological: Negative for dizziness, syncope and numbness. Hematological: Does not bruise/bleed easily. Psychiatric/Behavioral: The patient is not nervous/anxious. PHYSICAL EXAM: BP 124/60 | Pulse 71 | Resp 24 | Ht 1.803 m (5' 11") | Wt 101.152 kg (223 lb) | BMI 31.12 k g/m2 | SpO2 96% Constitutional: Well-developed. Neck: No JVD present. No thyromegaly present. Cardiovascular: Regular rhythm, S1 normal and S2 normal. No murmur heard. Pulses: Radial pulses are 2+ on the right side, and 2+ on the left side. Pulmonary/Chest: Effort normal and breath sounds normal. No wheezes. No rales. Abdominal: Soft. No tenderness. Musculoskeletal: 1+ edema. Neurological: Alert. No cranial nerve deficit. Skin: Warm and dry. DATA: Blood tests: Lab Results Component Value Date WBC 8.3 03/06/2011 RBC 4.51 03/06/2011 HGB 14.7 03/06/2011 HCT 42.5 03/06/2011 PLT 235 03/06/2011 Lab Results Component Value Date NA 140 03/14/2013 K 4.7 03/14/2013 CL 106 03/14/2013 CO2 26 03/14/2013 ANIONGAP 13 03/14/2013 GLUF 91 03/14/2013 BUN 9 03/14/2013 CREATININE 0.94 03/14/2013 BCR 10 03/14/2013 CA 9.5 03/14/2013 EGFR >60 03/14/2013 Lab Results Component Value Date CHOL 123 03/06/2011 TRIGSCR 103 03/06/2011 LDLCALC 67 03/06/2011 GLUF 91 03/14/2013 No results found for this basename: BNP, CKTOTAL, TSH, CRP No results found for this basename: METF, NMETFX, TFNMFX, [id number], OKDBUM76YOS, TOTEPI EKG: June 13, 2014, reviewed personally. Showed normal sinus rhythm, 65 beats per minute, ri ght bundle branch block. Last Echo: October 24, 2012, ejection fraction 58%, grade 1 diastolic dysfunction, no significant valvula r abnormalities. Last stress test: Last cath: March 07, 2011, visible disease with patent stents in the left anterior descending and rig ht coronary artery with 50% to 60% in-stent restenosis in the mid LAD and mid RCA with negat ziara FFR. Carotid US: AAA screening: Lower extremity US: OTHERS: Mr. Sanchez is a 68-year-old gentleman with the following medical problems: 1. Hypertension. 2. Hypercholesterolemia. 3. Coronary artery disease status post 2 stents in the left anterior descending artery on 2006, Taxus 3 x 16 mm at 12 atmospheres, and on May 03, 2008, a Xience 35 x 8 mm . Stents in the right coronary artery in February 2005, Cypher 3.5 x 33 mm postdilated to 4 x 22, and in December 2005 Taxus 3.5 x 16 at 15 atmospheres. 4. Gastroesophageal reflux disease. 5. Arthritis. 6. History of tobacco use. 7. COPD. The patient presents today for followup with concerns of chest discomfort. The patient has noted chest discomfort now happening more frequently, with less exertion. Timbo rose does have a known history of coronary artery disease. I recommend the patient proceed with left heart catheterization for further evaluation. The patient agrees and consent was jair rahman. His blood pressure shows good control on his current medications. Unfortunately, I do not have a recent lipid panel for review. I have asked him to continue with his aspirin 81 mg. He has noted some increased lower extremity edema and increased shortness of breath. We liliana l repeat an echocardiogram for further evaluation. Further recommendations after his catheterization. documentmilton gunn in this encounter Plan of Treatment +--------+ [...] [place] | | | | | | [address] | | | | | | | [...] | ECG 12 LEAD | Routin | 06/28/2014 | | Results for this | | | e | 11:21 AM | | procedure are in the | | | | PST | | results section. | + +--------+ + + + | ACTIVATED CLOTTING | Routin | 06/28/2014 | | Results for this | | TIME | e | 10:25 AM | | procedure are in the | | | | PST | | results section. | + +--------+ + + + | EXTERNAL LAB: CBC | Routin | 06/28/2014 | | Results for this | | | e | 8:10 AM | | procedure are in the | | | | PST | | results section. | + +--------+ + + + | BASIC METABOLIC | Routin | 06/28/2014 | | Results for this | | PANEL | e | 8:10 AM | | procedure are in the | | | | PST | | results section. | + +--------+ + + + documented in this encounter Results ECG 12 lead (06/28/2014 11:21 AM PST) + + + + + + | Component | Value | Ref Range | Performed | Pathologist | | | | | At | Signature | + + + + + + | DIAGNOSIS: | Normal sinus rhythmRight | | EXTERNAL | | | | bundle branch | | LAB | | | | blockAbnormal ECGWhen | | | | | | compared with ECG of | | | | | | 13-JUN-2014 08:33,No | | | | | | significant change was | | | | | | foundConfirmed by | | | | | | LALA WELSH ([id number]) on | | | | | | 06/28/2014 8:28:07 PM | | | | + + + + + + + + | Specimen | + + | | + + + + + | Narrative | Performed At | + + + | Historically converted [facility] [place] Epic environment | EXTERNAL LAB | + + + + +---------+ + + | Performing | Address | City/State/Zipcode | Phone Number | | Organization | | | | + +---------+ + + | EXTERNAL LAB | | | | + +---------+ + + Activated clotting time (06/28/2014 10:25 AM PST) + + + + + + | Component | Value | Ref Range | Performed | Pathologist | | | | | At | Signature | + + + + + + | Activated | 182 (H)Comment: Testing | 74 - 137 | EXTERNAL | | | Clotting | performed at [facility];888 | seconds | LAB | | | time, POC | [address];[place], [place] | | | | | | [address] | | | | + + + + + + + + | Specimen | + + | | + + + +---------+ + + | Performing | Address | City/State/Zipcode | Phone Number | | Organization | | | | + +---------+ + + | EXTERNAL LAB | | | | + +---------+ + + External Lab: CBC (06/28/2014 8:10 AM PST) + + + + + + | Component | Value | Ref Range | Performed | Pathologist | | | | | At | Signature | + + + + + + | WBC | 6.8Comment: Testing | 3.8 - 11.0 K/uL | EXTERNAL | | | | performed at [facility];[address] | | LAB | | | | [address];[place] | | | | | | [address] | | | | + + + + + + | Non- | 5.43Comment: Testing | 4.20 - 5.70 | EXTERNAL | | | Red Blood | performed at [facility];[address] | M/uL | LAB | | | Cells | [address];[place] | | | | | Counted | [address] | | | | + + + + + + | Hemoglobin | 16.9Comment: Testing | 13.2 - 17.0 | EXTERNAL | | | | performed at [facility];888 | g/dL | LAB | | | | [address];[place] | | | | | | [address] | | | | + + + + + + | Hematocrit, | 48.7Comment: Testing | 39.0 - 50.0 % | EXTERNAL | | | POC | performed at [facility];[address] | | LAB | | | | [address];[place] | | | | | | [address] | | | | + + + + + + | MCV | 89.7Comment: Testing | 80.0 - 100.0 fl | EXTERNAL | | | | performed at [facility];[address] | | LAB | | | | [address];[place] | | | | | | [address] | | | | + + + + + + | MCH | 31.1Comment: Testing | 27.0 - 34.0 pg | EXTERNAL | | | | performed at [facility];[address] | | LAB | | | | [address];[place] | | | | | | [address] | | | | + + + + + + | MCHC | 34.7Comment: Testing | 32.0 - 35.5 | EXTERNAL | | | | performed at [facility];888 | g/dL | LAB | | | | [address];[place] | | | | | | [address] | | | | + + + + + + | RDW-CV | 46.4Comment: Testing | 37 - 53 fl | EXTERNAL | | | | performed at [facility];[address] | | LAB | | | | [address];[place] | | | | | | [address] | | | | + + + + + + | Platelet | 265Comment: Testing | 150 - 400 K/uL | EXTERNAL | | | Count | performed at [facility];[address] | | LAB | | | Plasma | [address];[place] | | | | | | [address] | | | | + + + + + + | MPV | 7.9Comment: Testing | fl | EXTERNAL | | | | performed at [facility];[address] | | LAB | | | | [address];[place] | | | | | | [address] | | | | + + + + + + | Differentia | AUTOMATEDComment: | | EXTERNAL | | | l Type | Testing performed at | | LAB | | | | [facility];[address] | [address];[place] [address] | | | | + + + + + + | % Segmented | 65.6Comment: Testing | % | EXTERNAL | | | | performed at [facility];[address] | | LAB | | | Neutrophils | [address];[place] | | | | | | [address] | | | | + + + + + + | % | 23.4Comment: Testing | % | EXTERNAL | | | Lymphocytes | performed at [facility];[address] | | LAB | | | | [address];[place] | | | | | | [address] | | | | + + + + + + | % Monocytes | 6.8Comment: Testing | % | EXTERNAL | | | | performed at [facility];[address] | | LAB | | | | [address];[place] | | | | | | [address] | | | | + + + + + + | % | 2.8Comment: Testing | % | EXTERNAL | | | Eosinophils | performed at [facility];[address] | | LAB | | | | [address];[place] | | | | | | [address] | | | | + + + + + + | % Basophils | 1.4Comment: Testing | % | EXTERNAL | | | | performed at [facility];[address] | | LAB | | | | [address];[place] | | | | | | [address] | | | | + + + + + + | Absolute | 4.4Comment: Testing | 1.9 - 7.4 K/uL | EXTERNAL | | | Segmented | performed at [facility];[address] | | LAB | | | Neutrophils | [address];[place] | | | | | | [address] | | | | + + + + + + | Absolute | 1.6Comment: Testing | 1.0 - 3.9 K/uL | EXTERNAL | | | Lymphocytes | performed at [facility];[address] | | LAB | | | | [address];[place] | | | | | | [address] | | | | + + + + + + | Absolute | 0.5Comment: Testing | 0 - 0.8 K/uL | EXTERNAL | | | Monocytes | performed at [facility];[address] | | LAB | | | | [address];[place] | | | | | | [address] | | | | + + + + + + | Absolute | 0.2Comment: Testing | 0 - 0.5 K/uL | EXTERNAL | | | Eosinophils | performed at [facility];[address] | | LAB | | | | [address];[place] | | | | | | [address] | | | | + + + + + + | Absolute | 0.1Comment: Testing | 0 - 0.1 K/uL | EXTERNAL | | | Basophils | performed at [facility];[address] | | LAB | | | | [address];[place] | | | | | | [address] | | | | + + + [...] + +---------+ + + Basic Metabolic Panel (06/28/2014 8:10 AM PST) + + + + + + | Component | Value | Ref Range | Performed | Pathologist | | | | | At | Signature | + + + + + + | Na | 139Comment: Testing | 135 - 143 | EXTERNAL | | | | performed at [facility];[address] | mmol/L | LAB | | | | [address];[place] | | | | | | [address] | | | | + + + + + + | K | 3.5Comment: Testing | 3.5 - 4.9 | EXTERNAL | | | | performed at [facility];[address] | mmol/L | LAB | | | | [address];[place] | | | | | | [address] | | | | + + + + + + | Cl | 105Comment: Testing | 99 - 109 mmol/L | EXTERNAL | | | | performed at [facility];[address] | | LAB | | | | [address];[place] | | | | | | [address] | | | | + + + + + + | CO2 | 28Comment: Testing | 23 - 32 mmol/L | EXTERNAL | | | | performed at [facility];[address] | | LAB | | | | [address];[place] | | | | | | [address] | | | | + + + + + + | Anion Gap | 9Comment: Testing | 5 - 20 mmol/L | EXTERNAL | | | | performed at [facility];[address] | | LAB | | | | [address];[place] | | | | | | [address] | | | | + + + + + + | Glucose, | 83Comment: Testing | 65 - 99 mg/dL | EXTERNAL | | | Fasting | performed at [facility];[address] | | LAB | | | | [address];[place] | | | | | | [address] | | | | + + + + + + | BUN | 11Comment: Testing | 8 - 25 mg/dL | EXTERNAL | | | | performed at [facility];[address] | | LAB | | | | [address];[place] | | | | | | [address] | | | | + + + + + + | Creatinine | 0.96Comment: Testing | 0.70 - 1.30 | EXTERNAL | | | | performed at [facility];[address] | mg/dL | LAB | | | | [address];[place] | | | | | | [address] | | | | + + + + + + | BUN/Creatin | 11Comment: Testing | | EXTERNAL | | | ine Ratio | performed at [facility];[address] | | LAB | | | | [address];[place] | | | | | | [address] | | | | + + + + + + | Calcium | 8.9Comment: Testing | 8.5 - 10.2 | EXTERNAL | | | | performed at [facility];[address] | mg/dL | LAB | | | | [address];[place] | | | | | | [address] | | | | + + + [...] | | | | | | at [facility];[address];[place] [address] | | | | + + + [...] + documented in this encounter Visit Diagnoses Not on filedocumented in this encounter
--- OUTSIDE RECORDS SUMMARY | ~2020-02-14 | XMS | Encounter Summary ---
Demographics + + + | Address | [address] | | | [place] [address] | + + + | Home Phone | | + + + | Preferred Language | Unknown | + + + | Marital Status | | + + + | Amish Affiliation | Unknown | + + + | Race | Unknown | + + + | Ethnic Group | Unknown | + + + Author + + + | Author | [facility] | | | and [place] | + + + | Organization | [facility] | | | and [place] | + + + | Address | Unknown | + + + | Phone | Unavailable | + + + Support + + +---------+ + | Name | Relationship | Address | Phone | + + +---------+ + | Torri Sanchez | ECON | Unknown | | + + +---------+ + | [facility] | ECON | Unknown | | + + +---------+ + Care Team Providers + +------+ + | Care Metal Loader Name | Role | Phone | + +------+ + | Deidre Urbano | PCP | | | MD | | | + +------+ + Encounter Details +--------+ + + + + | Date | Type | Department | Care Team | Description | +--------+ + + + + | 01/20/ | Orders Only | [facility] | Conversion | | | 2018 | | CONVERSION [address] | Transaction, | | | | | [address] | Provider Unknown | | | | | [place] | [phone] | | | | | [address] | | | | | | [phone] | | | +--------+ + + + [...] [place] | | | | | | [address] | | | | | | | | +--------+ + + + + | 02/27/ | Procedure | Cardiology | | | | 2019 | visit | | | | +--------+ + + + + documented as of this encounter Visit Diagnoses Not on filedocumented in this encounter"
--- OUTSIDE RECORDS SUMMARY | ~2020-02-14 | XMS | Encounter Summary ---
Demographics + + + | Address | [address] | | | [place] [address] | + + + | Home Phone | | + + + | Preferred Language | Unknown | + + + | Marital Status | | + + + | Anabaptist Affiliation | Unknown | + + + | Race | Unknown | + + + | Ethnic Group | Unknown | + + + Author + + + | Author | [facility] | | | and [place] | + + + | Organization | [facility] | | | and [place] | + + + | Address | Unknown | + + + | Phone | Unavailable | + + + Support + + +---------+ + | Name | Relationship | Address | Phone | + + +---------+ + | Torri Langran | ECON | Unknown | | + + +---------+ + | [facility] | ECON | Unknown | | + + +---------+ + Care Team Providers + +------+ + | Care Computer Publisher Name | Role | Phone | + +------+ + PCP | Unavailable | + +------+ + Encounter Details +--------+ + + + + | Date | Type | Department | Care Team | Description | +--------+ + + + + | 02/26/ | Hospital | [facility] | Allen Moon MD | CORON ATHEROSCL | | 2004 - | Encounter [facility] | | [place] [facility]ON VESSEL | | | | CLINICAL DECISION | | | | 02/27/ | | [address] | | | | 2004 | | [place], [place] | | | | | | [address] | | | | | | [phone] | | | +--------+ + + + [...] | | | | | [place] | | | | | | [address] | | | | | | | | +--------+ + + + + | 02/27/ | Procedure | Cardiology | | | | 2019 | visit | | | | +--------+ + + + + documented as of this encounter Visit Diagnoses + + | Diagnosis | + + | Coronary atherosclerosis of [place] coronary artery | + + documented in this encounter"
--- OUTSIDE RECORDS SUMMARY | ~2020-02-14 | XMS | Encounter Summary ---
Demographics + + + | Address | [address] | | | [place] [address] | + + + | Home Phone | | + + + | Preferred Language | Unknown | + + + | Marital Status | | + + + | Sikh Affiliation | Unknown | + + + | Race | Unknown | + + + | Ethnic Group | Unknown | + + + Author + + + | Author | [facility] | | | and [place] | + + + | Organization | [facility] | | | and [place] | + + + | Address | Unknown | + + + | Phone | Unavailable | + + + Support + + +---------+ + | Name | Relationship | Address | Phone | + + +---------+ + | Torri Leslie | ECON | Unknown | | + + +---------+ + | [facility] | ECON | Unknown | | + + +---------+ + Care Team Providers + +------+ + | Care Lecturer Of Portuguese Name | Role | Phone | + +------+ + PCP | Unavailable | + +------+ + Encounter Details +--------+ + + + + | Date | Type | Department | Care Team | Description | +--------+ + + + + | 02/22/ | Hospital | [facility] | Conversion | Dysphagia | | 2011 | Encounter | [facility] | Transaction, | | | | | [address] | Provider Unknown | | | | | [address] [place], [place] | [phone] | | | | | [address] | | | | | | [phone] | | | +--------+ + + + [...] [place] | | | | | | [address] | | | | | | | [...] + +--------+ + + + | FL ESOPHAGRAM | Routin | 09/09/2011 | | Results for this | | COMPLETE | e | 2:29 PM | | procedure are in the | | | | PST | | results section. | + +--------+ + + + documented in this encounter Results FL Esophagram Complete (09/09/2011 2:29 PM PST) + + | Specimen | + + | | + + + + + | Narrative | Performed At | + + + | [facility] X[facility] ESOPHAGRAM 09/10/2011 6:52 AM HISTORY: | | | 65 years.Male. Dysphasia. TECHNIQUE: Following the oral | | | administration of contrast the esophagus was evaluated | | | fluoroscopically with a double contrast technique. FINDINGS: | | | There is normal passage of contrast through the esophagus without | | | mass or stricture. Mild prominence of the cricopharyngeus muscle. Mild | | | granular appearance to the esophageal mucosal with transverse folds | | | in the lower esophagus may be on the basis of esophagitis mild | | | pooling the periportal sinuses. Small hiatal hernia Fluoroscopy | | | time: 2.3 minutes. IMPRESSION: 1. Small hiatal hernia. 2. | | | Granular appearance of the esophageal mucosa with transverse folds | | | that may be on the basis of esophagitis. 3. Mild prominence of the | | | cricopharyngeus muscle | | + + + + + | Procedure Note | + + | Tariq, Rad Conversion - 03/11/2019 5:49 AM PDT [facility] | | ESOPHAGRAM09/10/2011 6:52 AM HISTORY:65 years.Male. Dysphasia. TECHNIQUE:Following the | | oral administration of contrast the esophagus was evaluated fluoroscopically with a | | double contrast technique. FINDINGS:There is normal passage of contrast through the | | esophagus without mass or stricture. Mild prominence of the cricopharyngeus muscle. | | Mild granular appearance to the esophageal mucosal with transverse folds in the lower | | esophagus may be on the basis of esophagitis mild pooling the periportal sinuses. Small | | hiatal hernia Fluoroscopy time: 2.3 minutes. IMPRESSION:1. Small hiatal hernia.2. | | Granular appearance of the esophageal mucosa with transverse folds that may be on the | | basis of esophagitis.3. Mild prominence of the cricopharyngeus muscle Electronically | | signed by Manuel Henderson DO on 09/10/2011 6:54 AM | |There is normal passage of contrast through the esophagus without mass or stricture. Mild prominence of the cricopharyngeus muscle. Mild granular appearance to the esophageal mucosal with transverse folds in the lower esophagus may be on the basis of | |esophagitis mild pooling the periportal sinuses. Small hiatal hernia | | | |Fluoroscopy time: 2.3 minutes. | | | |IMPRESSION: | |1. Small hiatal hernia. | |2. Granular appearance of the esophageal mucosa with transverse folds that may be on the b asis of esophagitis. | |3. Mild prominence of the cricopharyngeus muscle | | | | | + + documented in this encounter Visit Diagnoses + + | Diagnosis | + + | Dysphagia Dysphagia, unspecified | + + documented in this encounter"
--- OUTSIDE RECORDS SUMMARY | ~2020-02-14 | XMS | Encounter Summary ---
Demographics + + + | Address | [address] | | | [place] [address] | + + + | Home Phone | | + + + | Preferred Language | Unknown | + + + | Marital Status | | + + + | Jewish Affiliation | Unknown | + + + | Race | Unknown | + + + | Ethnic Group | Unknown | + + + Author + + + | Author | [facility] | | | and [place] | + + + | Organization | [facility] | | | and [place] | + + + | Address | Unknown | + + + | Phone | Unavailable | + + + Support + + +---------+ + | Name | Relationship | Address | Phone | + + +---------+ + | Torri Sanchez | ECON | Unknown | | + + +---------+ + | [facility] | ECON | Unknown | | + + +---------+ + Care Team Providers + +------+ + | Care Childcare Teacher Name | Role | Phone | + +------+ + | Deidre Urbano | PCP | | | MD | | | + +------+ + Encounter Details +--------+ + + + + | Date | Type | Department | Care Team | Description | +--------+ + + + + | 06/07/ | Orders Only | [facility] | Conversion | | | 2013 | | CONVERSION [address] | Transaction, | | | | | [address] | Provider Unknown | | | | | [place] | [phone] | | | | | [address] | | | | | | [phone] | | | +--------+ + + + [...] [place] | | | | | | [id number] | | | | | | | | +--------+ + + + + | 02/27/ | Procedure | Cardiology | | | | 2019 | visit | | | | +--------+ + + + + documented as of this encounter Visit Diagnoses Not on filedocumented in this encounter"
--- OUTSIDE RECORDS SUMMARY | ~2020-02-14 | XMS | Encounter Summary ---
Demographics + + + | Address | [address] | | | [place] [address] | + + + | Home Phone | | + + + | Preferred Language | Unknown | + + + | Marital Status | | + + + | Islam Affiliation | Unknown | + + + | Race | Unknown | + + + | Ethnic Group | Unknown | + + + Author + + + | Author | [facility] | | | and [place] | + + + | Organization | [facility] | | | and [place] | + + + | Address | Unknown | + + + | Phone | Unavailable | + + + Support + + +---------+ + | Name | Relationship | Address | Phone | + + +---------+ + | Torri Sanchez | ECON | Unknown | | + + +---------+ + | [facility] | [facility]CON | Unknown | | + + +---------+ + Care Team Providers + +------+ + | Care Supervisor Inventory Merchandising Name | Role | Phone | + +------+ + | Deidre Urbano | PCP | | | MD | | | + +------+ + Reason for Visit +--------+ + | Reason | Comments | +--------+ + | Other | Loop Alert | +--------+ + Encounter Details +--------+ + + + + | Date | Type | Department | Care Team | Description | +--------+ + + + + | 03/21/ | Documentati | [facility] | Kristen Hudson, | Other (Loop Alert) | | 2019 | on | CARDIOLOGY [place] | Tire Repairman | | | | | [address] | | | | | | [place], [place] | | | | | | [address] | | | | | | [phone] | | | +--------+ + + + [...] documented as of this encounter Progress Notes Kristen Hudson, Tire Repairman - 03/21/2019 7:56 AM PDTALERT REPORT Received alert notification for patient triggered symptom that occurred on 03/18/19 at 11:34 . Please see attached report. Medications: ASA 81mg Will continue to monitor T Associated attestation - Kosta Jarquin MD - 03/21/2019 9:19 AM PDTRecording was reviewed. No significant arrhythmias.documented in this encounter Plan of Treatment +--------+ + + + + | Date | Type | Specialty | Care Team | Description | +--------+ + + + + | 02/25/ | Office | Pulmonology | Андрей Lee MD | | | 2020 | Visit | | [address] | | | | | | [place] | | | | | | [address] | | | | | | | | +--------+ + + + + | 02/27/ | Procedure | Cardiology | | | | 2020 | visit | | | | +--------+ + + + + documented as of this encounter Visit Diagnoses Not on filedocumented in this encounter"
--- OUTSIDE RECORDS SUMMARY | ~2020-02-14 | XMS | Encounter Summary ---
Demographics + + + | Address | [address] | | | [place] [address] | + + + | Home Phone | | + + + | Preferred Language | Unknown | + + + | Marital Status | | + + + | Rastafari Affiliation | Unknown | + + + | Race | Unknown | + + + | Ethnic Group | Unknown | + + + Author + + + | Author | [facility] | | | and [place] | + + + | Organization | [facility] | | | and [place] | + + + | Address | Unknown | + + + | Phone | Unavailable | + + + Support + + +---------+ + | Name | Relationship | Address | Phone | + + +---------+ + | Torri Sanchez | ECON | Unknown | | + + +---------+ + | [facility] | [facility] | Unknown | | + + +---------+ + Care Team Providers + +------+ + | Care Telephone Information Clerk Name | Role | Phone | + +------+ + | Deidre Urbano | PCP | | | MD | | | + +------+ + Reason for Visit + + + | Reason | Comments | + + + | Device Check | Loop Summary Report - Routine | | (Remote) | | + + + Encounter Details +--------+ + + + + | Date | Type | Department | Care Team | Description | +--------+ + + + + | 03/08/ | Procedure | [facility] | Kosta Jarquin MD | History of loop | | 2018 | visit | CARDIOLOGY [place] | [address] | recorder (Primary | | | | [address] | [place] [address] | Dx) | | | | [place], [place] | [phone] | | | | | [address] | | | | | | [phone] | | | +--------+ + + + [...] of this encounter Procedure Notes Kristen Hudson, Wool Hat Hydraulicker - 03/08/2019 8:10 AM PDTAssociated Order(s): DEVICE INT ERROGATION- REMOTEProcedure(s): DEVICE INTERROGATION- REMOTEPre-Procedure Diagnose(s): Histo ry of loop recorder IMPLANTABLE LOOP RECORDER REMOTE INTERROGATION REPORT Name: Carla Sanchez Jr. PCP: Deidre Stiles MD : 1945 Primary cardiology provider: Kosta Jarquin Primary electrophysiology provider: none Mode of interrogation: Remote Device: Medtronic Battery Status: OK Interrogation results Please see the full interrogation report attached to this document. Bradycardia: Bradycardic episodes: There were no bradycardic episodes noted during the period. Pauses: No pauses greater than 2.0 [...] noted. Reviewed by: Kristen Hudson, Device Clinic Tech Associated attestation - Kosta Jarquin MD - 03/21/2019 5:28 PM PDTAgree with report.docum ented in this encounter Plan of Treatment +--------+ + + + + | Date | Type | Specialty | Care Team | Description | +--------+ + + + + | 02/25/ | Office | Pulmonology | Андрей Lee MD | | | 2019 | Visit | | [address] | | | | | | [place], [place] | | | | | | [...] + + | DEVICE | Routin | 03/08/2019 | History of loop | Results for this | | INTERROGATION- | e | 8:10 AM | recorder | procedure are in the | | REMOTE | | PDT | | results section. | + +--------+ + + + documented in this encounter Results Device Interrogation - Remote (03/08/2019 8:10 AM PDT) + + + | Narrative | Performed At | + + + | Kristen Hudson, Wool Hat Hydraulicker 03/13/2019 10:00 IMPLANTABLE | [facility] | | LOOP RECORDER REMOTE INTERROGATION REPORT Name: Carla Calloway | | | Laura Narvaez PCP: Deidre Stiles MD : 1945 MRN: | | | [id number] Primary cardiology provider: Kosta Jarquin Primary | | | electrophysiology provider: none Mode of interrogation: | | | Remote Device: [email or web address] Battery Status: OK Interrogation | | | resultsPlease see the full interrogation report attached to this | | | document. Bradycardia: Bradycardic episodes: There were no | | | bradycardic episodes noted during the monitoring period. | | | Pauses: No pauses greater than 2.0 seconds were noted. Atrial | | | events: Atrial high rate episodes (AT or AF): None Confirmed | | | episodes of atrial flutter or atrial fibrillation: No Known | | | history of atrial flutter or atrial fibrillation: No Current | | | antithrombotic therapy including: aspirin Ventricular events: | | | Ventricular high rate episodes: None. Symptoms: No symptoms | | | were noted since the last interrogation. Additional comments: | | | None. Follow up: The next scheduled interrogation will be in 5 | | | weeks. Impression: 1. No significant bradyarrhythmias were | | | noted. 2. No significant tachyarrhythmias were noted. 3. No patient | | | activated episodes were noted. Reviewed by: Kristen Hudson, Device | | | Clinic Tech | | + + + + +---------+ [...]
--- OUTSIDE RECORDS SUMMARY | ~2020-02-14 | XMS | Encounter Summary ---
Demographics + + + | Address | [address] | | | [place] [address] | + + + | Home Phone | | + + + | Preferred Language | Unknown | + + + | Marital Status | | + + + | Anabaptist Affiliation | Unknown | + + + | Race | Unknown | + + + | Ethnic Group | Unknown | + + + Author + + + | Author | [facility] | | | and [place] | + + + | Organization | [facility] | | | and [place] | + + + | Address | Unknown | + + + | Phone | Unavailable | + + + Support + + +---------+ + | Name | Relationship | Address | Phone | + + +---------+ + | Torri Sanchez | ECON | Unknown | | + + +---------+ + | [facility] | ECON | Unknown | | + + +---------+ + Care Team Providers + +------+ + | Care Production Operations Manager Name | Role | Phone | + +------+ + | Deidre Urbano | PCP | | | MD | | | + +------+ + Reason for Visit + + + | Reason | Comments | + + + | Follow-up | | + + + Evaluate & Treat (Routine) + +--------+ + + + + | Status | Reason | Specialty | Diagnoses / | Referred By | Referred To | | | | | Procedures | Contact | Contact | + +--------+ + + + + | Authorized | | Pulmonology | Diagnoses | Clar de | Jesus, | | | | | Chronic | Cedric, | MD Андрей | | | | | obstructive | Deidre A, | [address] | | | | | pulmonary | [address] | | | | | disease, | [address] | [place], [place] | | | | | unspecified | [place], | [address] Phone: | | | | | ([facility]LY [facility]) | [place] [address] | [phone] | | | | | | Phone: | Fax: | | | | | | [phone] | [phone] | | | | | | Fax: | | | | | | | [phone] | | + +--------+ + + + + Encounter Details +--------+---------+ + + + | Date | Type | Department | Care Team | Description | +--------+---------+ + + + | 08/28/ | Office | [facility] | Андрей Lee MD | Simple chronic | | 2020 | Visit | PULMONOLOGY [address] | bronchitis (HCC) | | | | [address] | [place], [place] | (Primary Dx); | | | | [place], [place] | [address] | Tobacco abuse; ILD | | | | [address] | | (interstitial lung | | | | [phone] | | disease) (HCC) | +--------+---------+ + + + Social History + +-------+ [...] + + + | Blood Pressure | 111/69 | 08/28/2019 10:07 AM | | | | | PST | | + + + + + | Pulse | 75 | 08/28/2019 10:07 AM | | | | | PST | | + + + + + | Temperature | 36.4 C (97.6 F) | 08/28/2019 10:07 AM | | | | | PST | | + + + + + | Respiratory Rate | - | - | | + + + + + | Oxygen Saturation | 89% | 08/28/2019 10:07 AM | | | | | PST | | + + + + + | Inhaled Oxygen | - | - | | | Concentration | | | | + + + + + | Weight | 104.8 kg (231 lb) | 08/28/2019 10:07 AM | | | | | PST | | + + + + + | Height | 180.3 cm (5' 11") | 08/28/2019 10:07 AM | | | | | PST | | + + + + + | Body Mass Index | 32.22 | 08/28/2019 10:07 AM | | | | | PST | | + + + + + documented in this encounter Progress Notes Андрей Lee MD - 08/28/2019 10:00 AM PST Subjective: Patient ID: Carla Calloway Laura Arboleda. is a 73 y.o. male is here for follow up for COPD. HPI The following portions of the patient's history were reviewed and updated as appropriate an d is available elsewhere in the record: allergies, current medications, past family history, past medical history, past social history, past surgical history and problem list. The patient is a pleasant 71-year-old male who was diagnosed with COPD many years ago and was being followed by Dr. Mcledo. He states his last pulmonary function test was 2 years a go and was treated with Spiriva, which gave him a lot of symptoms of prostatism. He was then switched to Symbicort 2 puffs 2 times a day, which he has been using regularly. He denies e leyda intubated. He does not have frequent exacerbations. He has significant limitation of his exercise capacity. He tries to do his chores at home and his daughter's house, where he hel ps take care of the animals; but he has been feeling that his exercise capacity is slowly de creasing. He has a lot of problem in bending down, as he feels short of breath. He denies an y orthopnea or PND. He follows with Cardiology and is being managed for coronary artery dise ase and congestive heart failure. He smokes heavily and still smokes 1 to 1-1/2 packs per day. He has been complaining of hem optysis for the past couple months, which is intermittent. He denies any weight loss. He has never been diagnosed with sleep apnea. 06/07/2017 The patient continues to smoke . He underwent a pulmonary function test which revealed mild obstructive impairment with a significant bronchodilator response. He has had no hospitaliz ation in the interim. He has been compliant with the use of his medications and his use of a lbuterol is minimal . 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 They were unable to get the CT chest done at [facility] . 01/20/2018 The patient has been stable since her last visit. Unfortunately continues to smoke. He robles s been compliant with the use of his inhalers. He has had no hospitalizations in the interi m. 07/25/2018 The patient has been stable since last visit. Unfortunately he continues to smoke. He has had no hospitalizations in the interim. 01/23/2019 The patient has been stable since her last visit. He continues to smoke but has cut down t he number of cigarettes he smokes.He has had no hospitalizations.He has ordered nicotine pat ches from [place]. Interim history 08/28/2019 The patient continues to smoke. He has had no hospitalizations in the interim. He has bee n compliant with the use of his medications. Review of Systems Constitutional: Negative. HENT: Negative. Eyes: Negative. Respiratory: Positive for cough and shortness of breath. Cardiovascular: Negative. Gastrointestinal: Negative. Genitourinary: Negative. Musculoskeletal: Positive for back pain and joint pain. Skin: Negative. Neurological: Negative. Endo/Heme/Allergies: Negative. Psychiatric/Behavioral: Negative. History: Past Medical History: Diagnosis Date Arthritis CAD (coronary artery disease) COPD (chronic obstructive pulmonary disease) (HCC) Degenerative arthritis GERD (gastroesophageal reflux disease) HTN (hypertension) Hyperlipidemia Smoking Past Surgical History: Procedure Laterality Date CHOLECYSTECTOMY CORONARY ANGIOPLASTY with stent OTHER SURGICAL HISTORY CATARACT EXTRACTION BILATERAL W/ ANTERIOR VITRECTOMY Social History Socioeconomic History Marital status: Spouse name: Not on file Number of children: Not on file Years of education: Not on file Highest education level: Not on file Occupational History Not on file Social Needs Financial resource strain: Not on file Food insecurity: Worry: Not on file Inability: Not on file Transportation needs: Medical: Not on file Non-medical: Not on file Tobacco Use Smoking status: Current Every Day Smoker Packs/day: 1.00 Start date: 1965 Smokeless tobacco: Never Used Substance and Sexual Activity Alcohol use: Not on file Drug use: Not on file Comment: Drug use: No Sexual activity: Not on file Lifestyle Physical activity: Days per week: Not on file Minutes per session: Not on file Stress: Not on file Relationships Social connections: Talks on phone: Not on file Gets together: Not on file Attends restoration service: Not on file Active member of club or organization: Not on file Attends meetings of clubs or organizations: Not on file Relationship status: Not on file Intimate partner violence: Fear of current or ex partner: Not on file Emotionally abused: Not on file Physically abused: Not on file Forced sexual activity: Not on file Other Topics Concern Not on file Social History Narrative Not on file History reviewed. No pertinent family history. Allergies: Allergies Allergen Reactions Fish Allergy Diarrhea and Other (See Comments) Shell fish all types Lipitor [Atorvastatin] Other (See Comments) Sensitive to Current Medications: Current Outpatient Medications on File Prior to Visit Medication Sig Dispense Refill Acidophilus Lactobacillus CAPS TAKE 1 CAPSULE BY MOUTH EVERY DAY TO IMPROVE GI HEALTH albuterol (PROVENTIL HFA) 90 mcg/puff inhaler Inhale 2 puffs into the lungs every 4 (fo ur) hours as needed for Wheezing or Shortness of Breath. aspirin 81 mg EC tablet Take 81 mg by mouth every other day. budesonide-formoterol (SYMBICORT) 160-4.5 mcg/puff inhaler Inhale 2 puffs into the lung s 2 times daily. buPROPion (WELLBUTRIN SR) 150 mg 12 hr tablet Take 150 mg by mouth 2 times daily. clotrimazole-betamethasone (LOTRISONE) cream Apply topically 2 times daily. finasteride (PROSCAR) 5 mg tablet Take 5 mg by mouth daily. furosemide (LASIX) 40 mg tablet Take 40 mg by mouth 2 (two) times daily. isosorbide mononitrate 60 mg ER tablet Take 30 mg by mouth Daily. lisinopril (PRINIVIL, ZESTRIL) 20 mg tablet Take 10 mg by mouth daily. melatonin 3 mg TABS Take 3 mg by mouth. (Patient taking differently: Take 9 mg by mouth .) omeprazole (PRILOSEC) 20 mg capsule Take 20 mg by mouth every morning (before breakfast ). rosuvastatin (CRESTOR) 40 MG tablet Take 20 mg by mouth nightly. sertraline (ZOLOFT) 100 mg tablet Take 100 mg by mouth Daily. silodosin (RAPAFLO) 8 mg CAPS Take 8 mg by mouth daily (with breakfast). No current facility-administered medications on file prior to visit. Objective Objective: Physical Exam Vitals: 08/28/19 1007 BP: 111/69 Pulse: 75 Temp: 36.4 C (97.6 F) PainSc: 0 - No pain Vital signs reviewed. GENERAL: pleasant, cooperative, oriented, strong smell of ciggarettes HEENT: pink conjunctiva, anicteric sclerae, moist oral mucosae and without any lesions, nor mal appearing nasal mucosae; no JVD; MALAMPATTI _2__; no thyromegaly; no cervicolymphadenopa nilay CVS: PMI non displaced, NRRR, S1 and S2, no murmurs/gallops/rubs CHEST: Examination of the chest was unremarkable. There were no bony deformities, no asymme try, and no other abnormalities. LUNGS: Normal effort, Equal in expansion, resonant to percussion, clear and equal breath so unds, no wheezes/rales/rhonchi ABDOMEN: Flat abdomen, NABS, non-tender on palpation, Traube's space intact, liver span nor mal, no masses palpated EXTREMITIES: good distal pulses, no cyanosis, no edema, no clubbing, no nail abnormalities NEURO: awake and oriented, no focal neurologic deficits Pulmonary function test 05/17/2015 FEV1/FVC 61 FEV1 2.7 FVC 4.4 Significant bronchodilator response was not noted Total lung capacity 6.63/98% Diffusing capacity 42% CT chest without contrast 07/02/2017 Changes suggestive of early pulmonary fibrosis Pulmonary function test 11/25/2018 SPIROMETRY: 1. FEV-1/FVC is 57 2. FEV-1 is 2.5/78. 3. FVC is 4.4/100 . 4.There is no significant bronchodilator response. LUNG VOLUMES: 1. TLC is 5.93/83 . 2. RV/TLC is normal. DIFFUSING CAPACITY: Diffusing capacity is 9.8/36 INTERPRETATION: The patient has a mild obstructive impairment with no significant bronchodilator response. Lung volumes are Normal although the residual volume is reduced. The diffusing capacity is severely reduced.Based on the results it appears either the patient has combined obstructiv e and restrictive process versus pulmonary vascular disease. Clinical correlation is sugges victorino Assessment/Plan Assessment and Plan: 1. Chronic obstructive pulmonary disease, unspecified COPD type (HCC) Stable symptoms. No history of exacerbations. Continue Symbicort twice daily. He will us e albuterol as needed. The patient gets his lung cancer screening from [facility]. This has been take n care of by his primary care physician. 2. Interstitial lung disease The patient has evidence of mild obstruction but his diffusing capacity is out of proportio nately decreased. His last CT scan in June 2017 showed changes of early pulmonary fibro sis. I do see he has bilateral basilar crackles. Fortunately symptomatically he remains st able. 3. Tobacco abuse The patient is not interested in smoking cessation Thank you for allowing me to participate in your patient's care. We will review test result s that we have ordered with the patient once they become available. A return visit has been scheduled in 6 months Андрей Lee MD Pulmonary and Critical Care Medicine [address] , [place] [address] documented in this enco unter Plan of Treatment +--------+ + + + + | Date | Type | Specialty | Care Team | Description | +--------+ + + + + | 02/25/ | Office | Pulmonology | Андрей Lee MD | | | 2019 | Visit | | [address] | | | | | | [place] | | | | | | [address] | | | | | | | | +--------+ + + + + | 02/27/ | Procedure | Cardiology | | | | 2019 | visit | | | | +--------+ + + + + documented as of this encounter Visit Diagnoses + + | Diagnosis | + + | Simple chronic bronchitis (HCC) - Primary Simple chronic bronchitis | + + | Tobacco abuse Tobacco use disorder | + + | ILD (interstitial lung disease) (HCC) Postinflammatory pulmonary fibrosis | + + documented in this encounter
--- OUTSIDE RECORDS SUMMARY | ~2020-02-14 | XMS | Clinical Summary ---
Demographics + + + | Address | [address] | | | [place] [address] | + + + | Home Phone | | + + + | Preferred Language | Unknown | + + + | Marital Status | | + + + | Orthodoxy Affiliation | Unknown | + + + [...] | | + + +---------+ + | [facility] | ECON | Unknown | | + + +---------+ + Care Team Providers + +------+ + | Care Comsec Manager Name | Role | Phone | + +------+ + | Deidre Urbano | PCP | | | MD | | | + +------+ + Allergies + + + + + + | Active Allergy | Reactions | Severity | Noted | Comments | | | | | Date | | + + + + + + | Fish Allergy | Diarrhea, Other (See | Medium | 06/07/20 | Shell fish all | | | Comments) | | 14 | types | + + + + + + | Atorvastatin | Other (See Comments) | Medium | 06/07/20 | Sensitive to | | | | | 14 | | + + + + + + Medications + + + +---------+------+------+-------+ | Medication | Sig | Dispensed | Refills | Star | End | Statu | | | | | | t | Date | s | | | | | | Date | | | + + + +---------+------+------+-------+ | aspirin 81 mg EC | Take 81 mg by mouth | | 0 | 11/2 | | Activ | | tablet | every other day. | | | 0/20 | | e | | | | | | 14 | | | + + + +---------+------+------+-------+ | furosemide (LASIX) | Take 40 mg by mouth | | 0 | 06/0 | | Activ | | 40 mg tablet | 2 (two) times daily. | | | 2/20 | | e | | | | | | 15 | | | + + + +---------+------+------+-------+ | lisinopril | Take 10 mg by mouth | | 0 | 06/0 | | Activ | | (PRINIVIL, ZESTRIL) | daily. | | | 2/20 | | e | | 20 mg tablet | | | | 15 | | | + + + +---------+------+------+-------+ | finasteride | Take 5 mg by mouth | | 0 | 12/0 | | Activ | | (PROSCAR) 5 mg | daily. | | | 2/20 | | e | | tablet | | | | 15 | | | + + + +---------+------+------+-------+ | albuterol | Inhale 2 puffs into | | 0 | 04/2 | | Activ | | (PROVENTIL HFA) 90 | the lungs every 4 | | | 0/20 | | e | | mcg/puff inhaler | (four) hours as | | | 17 | | | | | needed for Wheezing | | | | | | | | or Shortness of | | | | | | | | Breath. | | | | | | + + + +---------+------+------+-------+ | melatonin 3 mg | Take 3 mg by mouth. | | 0 | 07/0 | | Activ | | TABS | | | | 8/20 | | e | | | | | | 19 | | | + + + +---------+------+------+-------+ | | Inhale 2 puffs into | | 0 | | | Activ | | budesonide-formotero | the lungs 2 times | | | | | e | | l (SYMBICORT) | daily. | | | | | | | 160-4.5 mcg/puff | | | | | | | | inhaler | | | | | | | + + + +---------+------+------+-------+ | buPROPion | Take 150 mg by mouth | | 0 | | | Activ | | (WELLBUTRIN SR) 150 | 2 times daily. | | | | | e | | mg 12 hr tablet | | | | | | | + + + +---------+------+------+-------+ | | Apply topically 2 | | 0 | | | Activ | | clotrimazole-betamet | times daily. | | | | | e | | hasone (LOTRISONE) | | | | | | | | cream | | | | | | | + + + +---------+------+------+-------+ | isosorbide | Take 30 mg by mouth | | 0 | | | Activ | | mononitrate 60 mg ER | Daily. | | | | | e | | tablet | | | | | | | + + + +---------+------+------+-------+ | omeprazole | Take 20 mg by mouth | | 0 | | | Activ | | (PRILOSEC) 20 mg | every morning | | | | | e | | capsule | (before breakfast). | | | | | | + + + +---------+------+------+-------+ | rosuvastatin | Take 20 mg by mouth | | 0 | | | Activ | | (CRESTOR) 40 MG | nightly. | | | | | e | | tablet | | | | | | | + + + +---------+------+------+-------+ | sertraline | Take 100 mg by mouth | | 0 | | | Activ | | (ZOLOFT) 100 mg | Daily. | | | | | e | | tablet | | | | | | | + + + +---------+------+------+-------+ | silodosin | Take 8 mg by mouth | | 0 | | | Activ | | (RAPAFLO) 8 mg CAPS | daily (with | | | | | e | | | breakfast). | | | | | | + + + +---------+------+------+-------+ Active Problems + + + | Problem | Noted Date | + + + | Simple chronic bronchitis | 06/07/2017 | + + + | Hemoptysis | 06/07/2017 | + + + | History of loop recorder | 10/14/2016 | + + + | Coronary disease | 06/13/2014 | + + + + + | Overview: Abnormal stress test December 25, 2015, ischemia in | | LCx territory, low-intermediate risk, exercise time 1:36 minutes. | | Heart catheterization 2013, 2-vessel disease with patent | | stents in the LAD and RCA. Negative FFR in the RCA, 0.87. LAD | | on May 03, 2008, a Xience 3.5 x 8 mm. LAD on January 06, 2007, | | Taxus 3 x 16 mm at 12 atmospheres RCA in December 2005 Taxus 3.5 | | x 16 at 15 atmospheres. RCA in February 2005, Cypher 3.5 x 33 mm | | postdilated to 4 x 22 | + + + + + | Hypertension | 06/13/2014 | + + + | Hyperlipidemia | 06/13/2014 | + + + Encounters +--------+ + + + + | Date | Type | Specialty | Care Team | Description | +--------+ + + + + | 01/24/ | Procedure | Cardiology | | History of loop | | 2020 | visit | | | recorder (Primary | | | | | | Dx) | +--------+ + + + + | 12/19/ | Procedure | Cardiology | | History of loop | | 2019 | visit | | | recorder (Primary | | | | | | Dx) | +--------+ + + + + | 11/14/ | Procedure | Cardiology | | History of loop | | 2019 | visit | | | recorder (Primary | | | | | | Dx) | +--------+ + + + + from Last 3 Months Immunizations + + + + | Name | Administration Dates | Next Due | + + + + | INFLUENAZ PF 18-64 | 07/19/2017 | | | YRS,QUAD INTRADERMAL | | | + + + + | INFLUENZA TRIV | 03/15/2009, 05/16/2008, 05/19/2007 | | | W/PRES(PED/ADOL/ADUL | | | | T),MULTIDOSE | | | + + + + | PNEUMOCOCCAL | 03/19/2015 | | | CONJUGATE 13-VALENT | | | | (PCV13) | | | + + + + | PNEUMOCOCCAL | 09/07/2017, 01/16/2010 | | | POLYSACCHARIDE | | | | 23-VALENT (PPSV23) | | | + + + + | PNEUMOCOCCAL, | 01/25/2010 | | | UNSPECIFIED | | | | FORMULATION | | | + + + + | TDAP, (ADOL/ADULT) | 02/16/2012 | | + + + + | ZOSTER NON-LIVE | 03/10/2018, 12/09/2017 | | | (SHINGRIX) | | | + + + + Social History + [...] on file | | + + + Last Filed Vital Signs + + + [...] + + + | Respiratory Rate | 18 | 05/05/2018 9:11 AM | | | | | PDT | [...] | | + + + + + Plan of Treatment +--------+ + + + + | Date | Type | Specialty | Care Team | Description | +--------+ + + + + | 02/25/ | Office | Pulmonology | Андрей Lee MD | | | 2019 | Visit | | [address] | | | | | | [place] | | | | | | [id number] | | | | | | | | +--------+ + + + + | 02/27/ | Procedure | Cardiology | | | 2019 | visit | | | | +--------+ + + + + + + + + + | Health Maintenance | Due Date | Last | Comments | | | | Done | | + + + + + | Hepatitis C | | | | | Screening | 6 | | | + + + + + | Medication | | | | | Management | 6 | | | + + + + + | Colorectal Cancer | | | | | Screening | 6 | | | | (Colonoscopy) | | | | + + + + + | AAA Screening | | | | | | 1 | | | + + + + + | Med Mgmt: Cr | | 06/23/20 | | | | 7 | 16, | | | | | 06/28/20 | | | | | 14 | | + + + + + | Med Mgmt: K | | 01/09/20 | | | | 7 | 16, | | | | | 06/28/20 | | | | | 14 | | + + + + + | Med Mgmt: Na | | 01/09/20 | | | | 7 | 16, | | | | | 06/28/20 | | | | | 14 | | + + + + + | Adult Annual | | | | | Wellness Visit | 9 | | | + + + + + | Vaccine: Influenza | | 04/19/20 | | | (#1) | 0 | 19, | | | | | 04/21/20 | | | | | 18, | | | | | 07/19/19 | | | | | 18, | | | | | Addition | | | | | al | | | | | history | | | | | exists | | + + + + + | Vaccine: | | 05/19/20 | | | Dtap/Tdap/Td (3 - | 2 | 12, | | | Td) | | 02/16/20 | | | | | 12 | | + + + + + | Vaccine: | Completed | 09/07/19 | | | Pneumococcal 65+ | | 18, | | | | | 03/19/20 | | | | | 15, | | | | | 01/26/20 | | | | | 10, | | | | | Addition | | | | | al | | | | | history | | | | | exists | | + + + + + | Vaccine: Zoster | Completed | 03/10/20 | | | | | 18, | | | | | 12/10/19 | | | | | 18 | | + + + + + Implants + +--------+------+ +--------+--------+--------+ | Implanted | Type | Area | Manufacture | Device | Shelf | Model | | | | | r | | Expira | / | | | | | | Identi | tion | Serial | | | | | | fier | Date | / Lot | + +--------+------+ +--------+--------+--------+ | Implant Id: [id number] - Reveal | Cardia | | | | | | | Linq-11/05/2016Implanted: Qty: | c | | | | | /[id number] | | 1 on 11/05/2016 by Milka, | Rhythm | | | | | [id number] | | MD Kosat | | | | | | / | | | Manage | | | | | | | | ment | | | | | | + +--------+------+ +--------+--------+--------+ Procedures + +--------+ + + + | Procedure Name | Priori | Date/Time | Associated Diagnosis | Comments | | | ty | | | | + +--------+ + + + | DEVICE | Routin | 01/24/2020 | History of loop | Results for [...] + + | DEVICE | Routin | 11/15/2019 | History of loop | Results for this | | INTERROGATION- | e | 8:00 AM | recorder | procedure are in the | | REMOTE | | PDT | | results section. | + +--------+ + + + from Last 3 Months Results Device Interrogation - Remote (01/24/2020 8:00 AM PDT)Only the most recent of 3 results wi thin the time period is included. + + + | Narrative | Performed At | + + + | [facility] | DEB | | ZABRINA Archer 01/25/2020 10:26 AM IMPLANTABLE LOOP RECORDER REMOTE | | | INTERROGATION REPORT Name: Carla Sanchez Jr. PCP: Deidre Marquez | | | Bernarda Stiles MD : 1945MRN: [id number] Primary cardiology | | | provider: Kosta [...] of atrial flutter or atrial fibrillation: No Percentage of | | | time in [...] were | | | noted. Reviewed by: ZABRINA Vieira | | | | | |Pauses: No pauses greater than 2.0 seconds were noted. | | | | | |Atrial events: Atrial high rate episodes (AT or AF): None | | | | | |Confirmed episodes of atrial flutter or atrial fibrillation: No | | | | | |Percentage of [...] | | | | | |Reviewed by: ZABRINA Vieira | | + + + + +---------+ + + | Performing | Address | City/State/[facility] | Phone Number | | Organization | | | | + +---------+ + + | [facility] | | | | + +---------+ + + from Last 3 Months Insurance + +--------+ +--------+ +---------+--------+ | Payer | Benefi | Subscriber | Effect | Phone | Address | Type | | | t Plan | ID | zaira | | | | | | / | | Dates | | | | | | Group | | | | | | + +--------+ +--------+ +---------+--------+ | MEDICARE | MEDICA | [id number] | 10/18/19 | [phone] | | Medica | | | RE | | 11-Pre | 5 | | re | | | PART A | | sent | | | | | | AND B | | | | | | + +--------+ +--------+ +---------+--------+ | AARP | AARP | [id number] | 07/19/19 | [phone] | | Indemn | | | MDCR | | 19-Pre | 0 | | ity | | | SUPPL | | sent | | | | + +--------+ +--------+ +---------+--------+ + +--------+ +--------+ + + | Guarantor Name | Accoun | Relation to | Date | Phone | Billing Address | | | t Type | Patient | of | | | | | | | | | | + +--------+ +--------+ + + | Carla Sanchez | Person | Self [birth year] | [address] | | Jr. | al/Fam | | 1946 | [phone] | [place] | | | alejandrina | | | 5 (Home) | [address] | | | | | | [phone] | | | | | | | 2 (Work) | | + +--------+ +--------+ + + Advance Directives + + + + + | Type | Date Recorded | Patient | Explanation | | | | Comber Tender | | + + + + + | Power of | | | | | Enamel Shader | | | | + + + + + | Advance | | | | | Directive | | | | + + + + +
--- OUTSIDE RECORDS SUMMARY | ~2020-02-14 | XMS | Encounter Summary ---
Demographics + + + | Address | [address] | | | [place] [address] | + + + | Home Phone | | + + + | Preferred Language | Unknown | + + + | Marital Status | | + + + | Congregation Affiliation | Unknown | + + + | Race | Unknown | + + + | Ethnic Group | Unknown | + + + Author + + + | Author | [facility] | | | and [place] | + + + | Organization | [facility] | | | and [place] | + + + | Address | Unknown | + + + | Phone | Unavailable | + + + Support + + +---------+ + | Name | Relationship | Address | Phone | + + +---------+ + | Torri Langran | ECON | Unknown | | + + +---------+ + | [facility] | ECON | Unknown | | + + +---------+ + Care Team Providers + +------+ + | Care Plsql Developer Name | Role | Phone | + +------+ + PCP | Unavailable | + +------+ + Encounter Details +--------+ + + + + | Date | Type | Department | Care Team | Description | +--------+ + + + + | 11/25/ | Hospital | [facility] | Conversion | Chronic obstructive | | 2019 | Encounter | PULMONARY FUNCTION | Transaction, | pulmonary disease, | | | | LAB [address] | Provider Unknown | unspecified COPD | | | | [place], [place] | | type (HCC) | | | | [address] | (Fax) | | | | | [phone] | | | +--------+ + + + [...] + + + +---------+ + + | Acidophilus | TAKE 1 CAPSULE BY | | 0 | 10/04/19 | | | Lactobacillus CAPS | MOUTH EVERY DAY TO | | | 19 | 0 | | | IMPROVE GI HEALTH | | | | | + + [...] + + + +---------+ + + | silodosin | TAKE ONE CAPSULE BY | | 0 | 05/31/20 | | | (RAPAFLO) 8 mg CAPS | MOUTH EVERY DAY FOR | | | 18 | 9 | | | URINE CONTROL | | | | | + + + +---------+ + + documented as of this encounter Procedure Notes Андрей Lee MD - 11/25/2018 11:59 PM PDT Procedures by Андрей Lee MD at 11/25/182358 Author: Андрей Lee MD Service: Pulmonology Author Type: Physician Filed: 11/30/1872 Date of Service: 11/25/182358 Status: Signed Ground Crew Supervisor: Андрей Lee MD (Physician) Procedure Orders: 1. Complete PFT - Pre & Post Spirometry, PLETH & DLCO [[id number]] ordered by Андрей Lee MD at 07/25/18 0912 [facility] Service: Pulmonology PULMONARY FUNCTION TEST Name : Carla Sanchez : 1945 FINDINGS SPIROMETRY: 1. FEV-1/FVC is 57 2. FEV-1 [...] vascular disease. Clinical correlation is sugges victorino Lee MD 11/30/2018 9:23 AM documented in this enc ounter Plan of Treatment +--------+ + + + + | Date | Type | Specialty | Care Team | Description | +--------+ + + + + | 02/25/ | Office | Pulmonology | Андрей Lee MD | | | 2019 | Visit | | [address] | | | | | | [place] | | | | | | [id number] | | | | | | | [...]
--- OUTSIDE RECORDS SUMMARY | ~2020-02-14 | XMS | Encounter Summary ---
Demographics + + + | Address | [address] | | | [place] [address] | + + + | Home Phone | | + + + | Preferred Language | Unknown | + + + | Marital Status | | + + + | Cheondoism Affiliation | Unknown | + + + | Race | Unknown | + + + | Ethnic Group | Unknown | + + + Author + + + | Author | [facility] | | | and [place] | + + + | Organization | [facility] | | | and [place] | + + + | Address | Unknown | + + + | Phone | Unavailable | + + + Support + + +---------+ + | Name | Relationship | Address | Phone | + + +---------+ + | Torri Sanchez | ECON | Unknown | | + + +---------+ + | [facility] | [facility] | Unknown | | + + +---------+ + Care Team Providers + +------+ + | Care Auto Body Service Mechanic Name | Role | Phone | + [...] | +--------+ + + + + | 06/28/ | Procedure | [facility] | | History of loop | | 2019 | visit | CARDIOLOGY SEASIDE | | recorder (Primary | | | | [address] | | Dx) | | | | [place], [place] | | | | | | [address] | | | | | | [phone] | | | +--------+ + + + [...] of this encounter Procedure Notes Kristen Hudson, Sorting Machine Attendant - 06/28/2019 8:00 AM PSTAssociated Order(s): DEVICE INT ERROGATION- [...] Associated attestation - Kosta Jarquin MD - 06/28/2019 11:25 AM PSTNo evidence of arrhythm ias.documented in this encounter Plan of Treatment +--------+ + + + + | Date | Type | Specialty | Care Team | Description | +--------+ + + + + | 02/25/ | Office | Pulmonology | Андрей Lee MD | | | 2019 | Visit | | [address] | | | | | | [place], [place] | | | | | | [...] + + | DEVICE | Routin | 06/28/2019 | History of loop | Results for this | | INTERROGATION- | e | 8:00 AM | recorder | procedure are in the | | REMOTE | | PST | | results section. | + +--------+ + + + documented in this encounter Results Device Interrogation - Remote (06/28/2019 8:00 AM PST) + + + | Narrative | Performed At | + + + | [facility] | DEB | | Tristan Sorting Machine Attendant 06/28/2019 8:49 AM IMPLANTABLE LOOP | | | RECORDER REMOTE INTERROGATION REPORT Name: Carla Calloway Laura Narvaez | | | PCP: Deidre Stiles MD : 1945MRN: [id number] | | | Primary cardiology provider: Kosta [...]
--- OUTSIDE RECORDS SUMMARY | ~2020-02-14 | XMS | Encounter Summary ---
Demographics + + + | Address | [address] | | | [place] [address] | + + + | Home Phone | | + + + | Preferred Language | Unknown | + + + | Marital Status | | + + + | Islam Affiliation | Unknown | + + + | Race | Unknown | + + + | Ethnic Group | Unknown | + + + Author + + + | Author | [facility] | | | and [place] | + + + | Organization | [facility] | | | and [place] | + + + | Address | Unknown | + + + | Phone | Unavailable | + + + Support + + +---------+ + | Name | Relationship | Address | Phone | + + +---------+ + | Torri Langran | ECON | Unknown | | + + +---------+ + | [facility] | ECON | Unknown | | + + +---------+ + Care Team Providers + +------+ + | Care [employer] Paralegal Name | Role | Phone | + +------+ + | Deidre Urbano | PCP | | | MD | | | + +------+ + Reason for Referral Diagnostic/Screening (Routine) + +--------+ + + + + | Status | Reason | Specialty | Diagnoses / | Referred By | Referred To | | | | | Procedures | Contact | Contact | + +--------+ + + + + | Pending | | Radiology | Diagnoses | Alqaisi, | ROGELIO | | Review | | | Coronary | MD Kosta | CARDIOLOGY | | | | | artery | [address] | | | | | disease, | [address] | [address] | | | | | angina | [place], | [address] | | | | | presence | [place] [address] | [place], [place] | | | | | unspecified, | Phone: | [phone] | | | | | unspecified | [phone] | Phone: | | | | | vessel or | Fax: | [phone] | | | | | lesion type, | [phone] | Fax: | | | | | unspecified | | [phone] | | | | | whether | | | | | | | [place] or | | | | | | | transplanted | | | | | | | heart | | | | | | | Essential | | | | | | | hypertension | | | | | | | Mixed | | | | | | | hyperlipidem | | | | | | | ia History | | | | | | | of loop | | | | | | | recorder | | | | | | | Procedures | | | | | | | ECHO | | | | | | | Complete | | | + +--------+ + + + + Reason for Visit + + + | Reason | Comments | + + + | Follow-up | | + + + Encounter Details +--------+---------+ + + + | Date | Type | Department | Care Team | Description | +--------+---------+ + + + | 08/09/ | Office | [facility] | Kosta Jarquin MD | Coronary artery | | 2020 | Visit | CARDIOLOGY [place] | [address] | disease, angina | | | | [address] | [place] [address] | presence | | | | [place], [place] | [phone] | unspecified, | | | | [address] | | unspecified vessel | | | | [phone] | | or lesion type, | | | | | | unspecified whether | | | | | | [place] or | | | | | | transplanted heart | | | | | | (Primary Dx); | | | | | | Essential | | | | | | hypertension; Mixed | | | | | | hyperlipidemia; | | | | | | History of loop | | | | | | recorder | +--------+---------+ + + + Social History + +-------+ +--------+------+ | Tobacco Use | Types | Packs/Day | Years | Date | | | | | Used | | + +-------+ +--------+------+ | Current Every Day | | 1 | | | | Smoker | | | | | + +-------+ +--------+------+ + +---+---+---+ | Smokeless Tobacco: | | [...] + + + | Blood Pressure | 124/66 | 08/09/2019 8:58 AM | | | | | PST | | + + + + + | Pulse | 81 | 08/09/2019 8:58 AM | | | | | PST | | + + + + + | Temperature | - | - | | + + + + + | Respiratory Rate | - | - | | + + + + + | Oxygen Saturation | 92% | 08/09/2019 8:58 AM | | | | | PST | | + + + + + | Inhaled Oxygen | - | - | | | Concentration | | | | + + + + + | Weight | 104.1 kg (229 lb 6.4 | 08/09/2019 8:58 AM | | | | oz) | PST | | + + + + + | Height | 180.3 cm (5' 11") | 08/09/2019 8:58 AM | | | | | PST | | + + + + + | Body Mass Index | 31.99 | 08/09/2019 8:58 AM | | | | | PST | | + + + + + documented in this encounter Patient Instructions Patient Instructions Kosta Jarquin MD - 08/09/2019 9:00 AM PST No change of medications . Follow up in nine months with fasting blood tests and echocardiogram. documented in this encounter Progress Notes Kosta Jarquin MD - 08/09/2019 9:00 AM PST Date of visit: 08/09/2019 Primary Care Physician: Deidre Stiles MD CHIEF COMPLAINT: Chief Complaint Patient presents with Follow-up HISTORY OF PRESENT ILLNESS: Carla Sanchez Jr. is a 73 y.o. gentleman who presented today for follow-up. He continues to have episodes of fatigue. He denies chest pain or syncope. He has been compliant with his medication. He does not have an exercise routine. He continues to smoke. REVIEW OF SYSTEMS: Negative except for pertinent items noted in HPI. Review of Systems Constitutional: Fatigue. HENT: Negative for nosebleeds. Eyes: Negative for visual disturbance. Respiratory: Negative for cough and shortness of breath. Cardiovascular: Negative for chest pain, palpitations and leg swelling. Gastrointestinal: Negative for nausea, vomiting, abdominal pain and blood in stool. Genitourinary: Negative for hematuria. Musculoskeletal: Negative for myalgias, back pain and arthralgias. Skin: Negative for color change. Neurological: Negative for dizziness, syncope and numbness. Hematological: Does not bruise/bleed easily. Psychiatric/Behavioral: The patient is not nervous/anxious. PHYSICAL EXAM: BP 124/66 | Pulse 81 | Ht 1.803 m (5' 11") | Wt 104.1 kg (229 lb 6.4 oz) | SpO2 92% | BMI 31.99 kg/m Constitutional: Well-developed. Neck: No JVD present. No [...] tests: Lab Results Component Value Date WBC 10.52 01/09/2016 RBC 5.00 01/09/2016 HGB 15.7 01/09/2016 Lab Results Component Value Date NA 141 01/09/2016 K 3.4 (L) 01/09/2016 CL 107 01/09/2016 CO2 26 01/09/2016 ANIONGAP 11 01/09/2016 GLUF 96 01/09/2016 BUN 10 01/09/2016 EGFR >60 01/09/2016 Lab Results Component Value Date GLUF 96 01/09/2016 No results found for: BNP, TSH, CRP No results found for: TOTEPI July 07, 2019 Hemoglobin A1c 5.9 WBC 6.1, hemoglobin 16.2, platelet 240 Sodium 144, potassium 3.6, BUN 17, creatinine 1.2 Total protein 6.8, albumin 4.1, AST 16, ALT 21 Total cholesterol 145, triglyceride 130, HDL 45, LDL 83 EKG: August 09, 2019, reviewed personally on August 09, 2019. Sinus rhythm, heart rate 83, in determinate axis, inferior infarction, right bundle branch block, nonspecific ST-T wave alejandre ges. February 02, 2018, reviewed personally on February 02, 2018. Sinus rhythm, heart rate 63, left axis deviation, right bundle branch block, normal ST-T segment and QT interval. October 03, 2016, reviewed personally on October 14, 2016. Sinus rhythm, heart rate 80, left ax is deviation, right bundle-branch block, inferior infarction without acute ST-T changes. January 09, 2016, reviewed personally on January 12, 2016 sinus rhythm, heart rate 64, normal axi s, left atrial enlargement, no significant Q waves, right bundle branch block, normal ST-T s egment and QT interval. June 19, 2015, reviewed personally on June 19, 2015. Sinus rhythm, heart rate 66, lef t axis deviation, right bundle branch block. December 03, 2014, at [facility] reviewed personally showed sinus rhythm, heart rate 6 3. Normal axis. Normal P wave, MA interval. Right bundle branch block. Normal ST-T segment a nd normal QT interval. June 28, 2014 showed sinus rhythm, heart rate 63, normal axis, normal P-wave, MA inter erica, right bundle branch block, normal ST T [...] Mcneil treadmil l score 1.5. Last cath: January 09, 2016. Insignificant coronary artery disease with negative FFR of the RCA is 0.87. Patent stent in the LAD. Patent stent in the RCA. June 29, 2014, 2-vessel disease with patent stents in the LAD and the RCA, negative FFR in the RCA 0.87. March 07, 2011, single vessel disease with patent stents in the left anterior descending a nd right coronary artery with 50% to 60% in-stent restenosis in the mid LAD and mid RCA with negative FFR. Carotid US: AAA screening: Lower extremity US: August 18, 2016. Normal ALONSO bilaterally without evidence of arterial insufficiency. OTHERS: Loop recorder interrogation. August 02, 2019. No major events. Loop recorder interrogation. January 27, 2019. No major events. The symptom activated corre lated with normal sinus rhythm. Pulmonary function test. November 25, 2018. Mild obstructive impairment with severely reduced diffusion capacity. Loop recorder interrogation. August 02, 2018. No events. Loop recorder interrogation. July 27, 2018. No events. Loop recorder interrogation. February 02, 2018. Good battery status. No events. Loop recorder interrogation. February 2017. No events. December 2014. One month monitor. Sinus rhythm. 0.51 percent ventricular activity. No significa nt tachyarrhythmias or bradyarrhythmias. CT PE protocol on December 02, 2014, showed no evidence of PE, no aneurysm or dissection, calcif ied coronary arteries. Plan ASSESSMENT & PLAN: Carla Brodie Sanchez Jr. is a 73 y.o. gentleman with the following medical problems: 1. Hypertension. 2. Hypercholesterolemia. 3. Coronary artery disease ? Abnormal stress test December 25, 2015, ischemia in LCx territory, low-intermediate risk, exer cise time 1:36 minutes. ? Heart catheterization 2013, 2-vessel disease with patent stents in the LAD and RCA. Negat zaira FFR in the RCA, 0.87. ? LAD on May 03, 2008, a Xience 3.5 x 8 mm. ? LAD on January 06, 2007, Taxus 3 x 16 mm at 12 atmospheres ? RCA in December 2005 Taxus 3.5 x 16 at 15 atmospheres. ? RCA in February 2005, Cypher 3.5 x 33 mm postdilated to 4 x 22 4. Loop recorder insertion, October 2016. 5. Gastroesophageal reflux disease. 6. Arthritis. 7. History of tobacco use. 8. COPD. Presented today for follow-up. Blood pressure and heart rate are well controlled. Cholesterol levels are well controlled. I reviewed the ECG from today without major changes. We reviewed the loop recorder interrogation without any major events. I reviewed the recent blood test from June 2019. Coronary artery disease is a stable. No changes of medications today. I emphasized the importance of smoking cessation and regular exercise. Follow-up in 9 months with echocardiogram and fasting blood test. No orders of the defined types were placed in this encounter. The following portions of the patient's history were reviewed and updated as appropriate: Allergies, current medications. Family history, past medical history, past social history, past surgical history. Problem list. Kosta Jarquin MD 08/09/2019 documented in this encounter Plan of Treatment [...] [place] | | | | | | [id number] | | | | | | | | +--------+ + + + + | 02/27/ | Procedure | Cardiology | | | | 2019 | visit | | | | +--------+ + + + + + + +--------+ + + | Name | Type | Priori | Associated Diagnoses | Order Schedule | | | | ty | | | + + +--------+ + + | ECHO Complete | Echocardiog | Routin | Coronary artery | Expected: | | | loretta | e | disease, angina | 02/07/2020, Expires: | | | | | presence | 02/06/2021 | | | | | unspecified, | | | | | | unspecified vessel | | | | | | or lesion type, | | | | | | unspecified whether | | | | | | [place] or | | | | | | transplanted heart | | | | | | Essential | | | | | | hypertension Mixed | | | | | | hyperlipidemia | | | | | | History of loop | | | | | | recorder | | + + +--------+ + + documented as of this encounter Procedures + +--------+ + + + | Procedure Name | Priori | Date/Time | Associated Diagnosis | Comments | | | ty | | | | + +--------+ + + + | ECG 12 LEAD | Routin | 08/09/2019 | Coronary artery | Results for this | | | e | 9:21 AM | disease, angina | procedure are in the | | | | PST | presence | results section. | | | | | unspecified, | | | | | | unspecified vessel | | | | | | or lesion type, | | | | | | unspecified whether | | | | | | [place] or | | | | | | transplanted heart | | + +--------+ + + + documented in this encounter Results ECG 12 lead (08/09/2019 9:21 AM PST) + + + + + + | Component | Value | Ref Range | Performed | Pathologist | | | | | At | Signature | + + + + + + | VENTRICULAR | 83 | BPM | [facility] | | | RATE EKG | | | | | + + + + + + | ATRIAL RATE | 83 | BPM | [facility] | | + + + + + + | P-R | 160 | ms | [facility] | | | INTERVAL | | | | | + + + + + + | QRS | 156 | ms | [facility] | | | DURATION | | | | | + + + + + + | Q-T | 422 | ms | [facility] | | | INTERVAL | | | | | + + + + + + | Q-T | 495 | ms | [facility] | | | INTERVAL | | | | | | (CORRECTED) | | | | | + + + + + + | P WAVE AXIS | 55 | degrees | [facility] | | + + + + + + | QRS AXIS | -92 | degrees | [facility] | | + + + + + + | T AXIS | -6 | degrees | [facility] | | + + + + + + | INTERPRETAT | Normal sinus | | [facility] | | | ION TEXT | rhythmIndeterminate | | | | | | axisInferior | | | | | | infarctRight bundle | | | | | | branch blockNonspecific | | | | | | ST and/or T wave | | | | | | abnormalitiesAbnormal | | | | | | ECGConfirmed by KORINA | | | | | | KOSTA HENDRICKSON ([id number]) on | | | | | | 08/09/2019 9:38:55 AM | | | | + + + + + + + + | Specimen | + + | | + + + + + | Narrative | Performed At | + + + | | | + + + + +---------+ + + | Performing | Address | City/State/Zipcode | Phone Number | | Organization | | | | + +---------+ + + | [facility] | | | | + +---------+ + + documented in this encounter Visit Diagnoses + + | Diagnosis | + + | Coronary artery disease, angina presence unspecified, unspecified vessel or lesion | | type, unspecified whether [place] or transplanted heart - Primary | + + | Essential hypertension Unspecified essential hypertension | + + | Mixed hyperlipidemia | + + | History of loop recorder | + + documented in this encounter
--- OUTSIDE RECORDS SUMMARY | ~2020-02-14 | XMS | Encounter Summary ---
Demographics + + + | Address | [address] | | | [place] [address] | + + + | Home Phone | | + + + | Preferred Language | Unknown | + + + | Marital Status | | + + + | Rastafarian Affiliation | Unknown | + + + | Race | Unknown | + + + | Ethnic Group | Unknown | + + + Author + + + | Author | [facility] | | | and [place] | + + + | Organization | [facility] | | | and [place] | + + + | Address | Unknown | + + + | Phone | Unavailable | + + + Support + + +---------+ + | Name | Relationship | Address | Phone | + + +---------+ + | Torri Sanchez | ECON | Unknown | | + + +---------+ + | [facility] | ECON | Unknown | | + + +---------+ + Care Team Providers + +------+ + | Care Wire Hanger Name | Role | Phone | + +------+ + | Deidre Urbano | PCP | | | MD | | | + +------+ + Reason for Visit + + + | Reason | Comments | + + + | Device Check | loop | | (Remote) | | + + + Encounter Details +--------+ + + + + | Date | Type | Department | Care Team | Description | +--------+ + + + + | 01/24/ | Procedure | [facility] | | History of loop | | 2020 | visit | CARDIOLOGY [place] | | recorder (Primary | | | | [address] | | Dx) | | | | [place] | | | | | | [address] | | | | | | [phone] | | | +--------+ + + + [...] documented as of this encounter Procedure Notes Isha Archer RN - 01/24/2020 8:00 AM PDTAssociated Order(s): DEVICE INTERROGATION- R EMOTEProcedure(s): DEVICE INTERROGATION- REMOTEPre-Procedure Diagnose(s): History of loop re corder IMPLANTABLE LOOP RECORDER REMOTE INTERROGATION REPORT Name: [...] flutter or atrial fibrillation: No Percentage of time in atrial flutter or [...] patient activated episodes were noted. Reviewed by: ZABRINA Vieira P DT Associated attestation - Kosta Jarquin MD - 01/25/2020 6:56 PM PDTNo events.documented in this encounter Plan of Treatment +--------+ + + + + | Date | Type | Specialty | Care Team | Description | +--------+ + + + + | 02/25/ | Office | Pulmonology | Андрей Lee MD | | 2019 | Visit | | [address] | | | | | | [place] | | | | | | [id number] | | | | | | | [...] this encounter Results Device Interrogation - Remote (01/24/2020 8:00 AM PDT) + + + | Narrative | Performed At | + + + | [facility] | DEB | | ZABRINA Archer 01/25/2020 10:26 AM IMPLANTABLE LOOP RECORDER REMOTE | | | INTERROGATION REPORT Name: Carla Sanchez Jr. PCP: Deidre Marquez | | | Bernarda Stiles MD : [id number]: [id number] Primary cardiology | | | provider: Kosta [...]
--- OUTSIDE RECORDS SUMMARY | ~2020-02-14 | XMS | Encounter Summary ---
Demographics + + + | Address | [address] | | | [place] [address] | + + + | Home Phone | | + + + | Preferred Language | Unknown | + + + | Marital Status | | + + + | Oriental Orthodox Affiliation | Unknown | + + + | Race | Unknown | + + + | Ethnic Group | Unknown | + + + Author + + + | Author | [facility] | | | and [place] | + + + | Organization | [facility] | | | and [place] | + + + | Address | Unknown | + + + | Phone | Unavailable | + + + Support + + +---------+ + | Name | Relationship | Address | Phone | + + +---------+ + | Torri Langran | ECON | Unknown | | + + +---------+ + | [facility] | ECON | Unknown | | + + +---------+ + Care Team Providers + +------+ + | Care Sap Data Analyst Name | Role | Phone | + +------+ + PCP | Unavailable | + +------+ + Encounter Details +--------+ + + + + | Date | Type | Department | Care Team | Description | +--------+ + + + + | 01/06/ | Hospital | [facility] | Ilene Mcdaniel MD | Unspecified Chest | | 2006 - | Encounter | [facility] | [address] | Pain | | | | [address] | | | 01/07/ | | [address] | [place], [place] | | | 2006 | | [place], [place] | [address] | | | | | [address] | [phone] | | | | | [phone] | | | +--------+ + + + [...] [place] | | | | | | [id number] | | | | | | | [...]
--- OUTSIDE RECORDS SUMMARY | ~2020-02-14 | XMS | Encounter Summary ---
Demographics + + + | Address | [address] | | | [place] [address] | + + + | Home Phone | | + + + | Preferred Language | Unknown | + + + | Marital Status | | + + + | Sabianism Affiliation | Unknown | + + + | Race | Unknown | + + + | Ethnic Group | Unknown | + + + Author + + + | Author | [facility] | | | and [place] | + + + | Organization | [facility] | | [...] Team Providers + +------+ + | Care Hoop Maker Name | Role | Phone | + +------+ + | Deidre Urbano | PCP | | | MD | | | + +------+ + Encounter Details +--------+ + + + + | Date | Type | Department | Care Team | Description | +--------+ + + + + | 06/13/ | Orders Only | [facility] | Diaz, | | | 2013 | | [facility] | SUGAR Jones | | | | | ECHO [address] | | | | | | [place] | | | | | | [address] | | | | | | [phone] | | | +--------+ + + + [...] | | | | | [place] | | | | | | [address] | | | | | | | [...] | + +--------+ + + + | ECHO COMPLETE | Routin | 06/13/2014 | | Results for this | | | e | 2:34 PM | | procedure are in the | | | | PST | | results section. | + +--------+ + + + documented in this encounter Results ECHO Complete (06/13/2014 2:34 PM PST) + + | Specimen | + + | | + + + + + | Impressions | Performed At | + + + | 1. Overall left ventricular systolic function is normal with, an EF | | | between 60 - 65 %. 2. The diastolic filling pattern indicates | | | impaired relaxation consistent with mild dysfunction (Grade I). 3. | | | The right ventricle is severely enlarged. 4. The left atrium is | | | markedly dilated. 5. There is mild pulmonary hypertension. 6. 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 | | + + + + + + | Narrative | Performed At | + + + | Patient Name: ELHAM LESLIE Date of : 1945 | | | Performing Physician: Kosta Jarquin MD | | | | | | INDICATIONS HTN, CAD CONCLUSIONS 1. | | | Overall left ventricular systolic function is normal with, an EF | | | between 60 - 65 %. 2. The diastolic filling pattern indicates | | | impaired relaxation consistent with mild dysfunction (Grade I). 3. | | | The right ventricle is severely enlarged. 4. The left atrium is | | | markedly dilated. 5. There is mild pulmonary hypertension. 6. 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 FINDINGS | | | -------- Study: A 2-dimensional transthoracic echocardiogram with | | | m-mode, spectral and color flow Doppler was perfomed. Study: This was | | | a technically adequate study. Left Ventricle: Overall left | | | ventricular systolic function is normal with, an EF between 60 - 65 %. | | | Left Ventricle: The left ventricle cavity size is normal. Left | | | Ventricle: There is mild concentric left ventricular hypertrophy. | | | Left Ventricle: No regional wall motion abnormalities. Left | | | Ventricle: The diastolic filling pattern indicates impaired relaxation | | | consistent with mild dysfunction (Grade I). Right Ventricle: The | | | right ventricle is severely enlarged. Left Atrium: The left atrium is | | | markedly dilated. Right Atrium: The right atrial size is normal. | | | Aortic Valve: The aortic valve is trileaflet and appears structurally | | | normal. Aortic Valve: Trace amount of aortic regurgitation. Aortic | | | Valve: There is no evidence of aortic stenosis. Mitral Valve: The | | | mitral valve is normal. Mitral Valve: There is trace mitral | | | regurgitation. Tricuspid Valve: The tricuspid valve appears | | | structurally normal. Tricuspid Valve: Trace tricuspid regurgitation | | | present. Tricuspid Valve: There is mild pulmonary hypertension. | | | Tricuspid Valve: The right ventricular systolic pressure (pulmonary | | | artery systolic pressure), as measured by Doppler, is 36.21mmHg. | | | Pulmonic Valve: The pulmonic valve is normal. Pulmonic Valve: Trace | | | pulmonic regurgitation. Pericardium: There is no pericardial | | | effusion. IVC/Hepatic Veins: The IVC is normal size (1.5-2.5cm) and | | | collapses >50% with sniff, consistent with central venous pressures of | | | 5-10mmHg. Aorta: The ascending aorta is dilated measuring up to | | | 3.8cm. Pulmonary Veins: The flow patterns, measured by Doppler, | | | appear normal. MEASUREMENTS Ao asc: 3.75 cm | | | IVC: 1.67 cm LA Diam: 4.12 cm EDV(Teich): 119.85 ml IVSd: | | | 1.34 cm LVIDd: 5.02 cm LVPWd: 1.31 cm LVOT Diam: 2.50 | | | cm %FS: 34.09 % EF(Teich): 62.78 % ESV(Teich): 44.59 ml | | | LVIDs: 3.31 cm SV(Teich): 75.25 ml RVIDd: 4.27 cm LVEF MOD | | | A2C: 58.82 % SV MOD A2C: 47.09 ml LVEF MOD A4C: 62.96 % | | | SV MOD A4C: 108.88 ml EF Biplane: 64.89 % LVEDV MOD BP: | | | 135.48 ml LVESV MOD BP: 47.56 ml LVEDV MOD A2C: 80.05 ml LVLd | | | A2C: 6.66 cm LVEDV MOD A4C: 172.92 ml LVLd A4C: 8.93 cm | | | LVESV MOD A2C: 32.96 ml LVLs A2C: 6.07 cm LVESV MOD A4C: | | | 64.04 ml LVLs A4C: 6.54 cm LAESV(A-L): 73.08 ml LAESV Index | | | (A-L): 33.07 ml/m2 LAAs A2C: 20.03 cm2 LAESV A-L A2C: 59.10 | | | ml LALs A2C: 5.76 cm LAAs A4C: 24.77 cm2 LAESV A-L A4C: | | | 88.39 ml LALs A4C: 5.89 cm RAAs: 20.77 cm2 RAESV A-L: | | | 73.57 ml RAESV MOD: 66.42 ml RALs: 4.97 cm Ao Diam: 3.97 | | | cm AV maxP.38 mmHg AV meanP.20 mmHg AV Vmax: 1.16 | | | m/s AV Vmean: 0.86 m/s AV VTI: 23.98 cm SIGIFREDO Vmax: 3.82 cm2 | | | SIGIFREDO (VTI): 3.62 cm2 LVOT maxP.25 mmHg LVOT meanPG: | | | 1.54 mmHg LVSI Dopp: 39.38 ml/m2 LVSV Dopp: 87.04 ml LVOT | | | Vmax: 0.90 m/s LVOT Vmean: 0.58 m/s LVOT VTI: 17.71 cm MV | | | A Robbin: 0.57 m/s MV DecT: 216.56 ms MV E Robbin: 0.54 m/s MV | | | E/A Ratio: 0.95 Septal e': 0.04 m/s Septal E/e': 12.19 | | | Lateral e': 0.05 m/s Lateral E/e': 9.85 PV maxP.53 mmHg | | | PV Vmax: 0.79 m/s RAP: 5 mmHg RVSP: 36.21 mmHg TR maxPG: | | | 31.21 mmHg TR Vmax: 2.79 m/s Product Safety Technical Assistant: RUBEN | | | Authenticated by: Kosta Jarquin MD Report Date/Time: 06-13-2014 | | | 21:35:05 | | + + + + + | Procedure Note | + + | Tariq, Rad Conversion - 03/09/2019 10:05 PM PDT Patient Name: Jose Luis LESLIE of | | : 1945 Performing Physician: Kosta Jarquin | | INDICATIONS H | | TN, CAD CONCLUSIONS 1. Overall left ventricular systolic function is normal | | with, an EF between 60 - 65 %.2. The diastolic filling pattern indicates impaired | | relaxation consistent with mild dysfunction (Grade I).3. The right ventricle is severely | | enlarged.4. The left atrium is markedly dilated.5. There is mild pulmonary | | hypertension.6. The ascending aorta is dilated measuring up to 3.8cm. | | FINDINGS--------Study: A 2-dimensional transthoracic echocardiogram with m-mode, | | spectral and color flow Doppler was perfomed.Study: This was a technically adequate | | study.Left Ventricle: Overall left ventricular systolic function is normal with, an EF | | between 60 - 65 %.Left Ventricle: The left ventricle cavity size is normal.Left | | Ventricle: There is mild concentric left ventricular hypertrophy.Left Ventricle: No | | regional wall motion abnormalities.Left Ventricle: The diastolic filling pattern | | indicates impaired relaxation consistent with mild dysfunction (Grade I).Right | | Ventricle: The right ventricle is severely enlarged.Left Atrium: The left atrium is | | markedly dilated.Right Atrium: The right atrial size is normal.Aortic Valve: The aortic | | valve is trileaflet and appears structurally normal.Aortic Valve: Trace amount of aortic | | regurgitation.Aortic Valve: There is no evidence of aortic stenosis.Mitral Valve: The | | mitral valve is normal.Mitral Valve: There is trace mitral regurgitation.Tricuspid | | Valve: The tricuspid valve appears structurally normal.Tricuspid Valve: Trace tricuspid | | regurgitation present.Tricuspid Valve: There is mild pulmonary hypertension.Tricuspid | | Valve: The right ventricular systolic pressure (pulmonary artery systolic pressure), as | | measured by Doppler, is 36.21mmHg.Pulmonic Valve: The pulmonic valve is normal.Pulmonic | | Valve: Trace pulmonic regurgitation.Pericardium: There is no pericardial | | effusion.IVC/Hepatic Veins: The IVC is normal size (1.5-2.5cm) and collapses >50% with | | sniff, consistent with central venous pressures of 5-10mmHg.Aorta: The ascending aorta | | is dilated measuring up to 3.8cm.Pulmonary Veins: The flow patterns, measured by | | Doppler, appear normal. MEASUREMENTS Ao asc: 3.75 cmIVC: 1.67 cmLA Diam: | | 4.12 cmEDV(Teich): 119.85 mlIVSd: 1.34 cmLVIDd: 5.02 cmLVPWd: 1.31 cmLVOT | | Diam: 2.50 cm%FS: 34.09 %EF(Teich): 62.78 %ESV(Teich): 44.59 mlLVIDs: 3.31 | | cmSV(Teich): 75.25 mlRVIDd: 4.27 cmLVEF MOD A2C: 58.82 %SV MOD A2C: 47.09 mlLVEF | | MOD A4C: 62.96 %SV MOD A4C: 108.88 mlEF Biplane: 64.89 %LVEDV MOD BP: 135.48 | | mlLVESV MOD BP: 47.56 mlLVEDV MOD A2C: 80.05 mlLVLd A2C: 6.66 cmLVEDV MOD A4C: | | 172.92 mlLVLd A4C: 8.93 cmLVESV MOD A2C: 32.96 mlLVLs A2C: 6.07 cmLVESV MOD A4C: | | 64.04 mlLVLs A4C: 6.54 cmLAESV(A-L): 73.08 mlLAESV Index (A-L): 33.07 ml/m2LAAs | | A2C: 20.03 [id number] A-L A2C: 59.10 mlLALs A2C: 5.76 cmLAAs A4C: 24.77 [id number] | | A-L A4C: 88.39 mlLALs A4C: 5.89 cmRAAs: 20.77 [id number] A-L: 73.57 mlRAESV MOD: | | 66.42 mlRALs: 4.97 cmAo Diam: 3.97 cmAV maxP.38 mmHgAV meanP.20 mmHgAV | | Vmax: 1.16 m/Alexi Vmean: 0.86 m/Alexi VTI: 23.98 cmAVA Vmax: 3.82 cm2AVA (VTI): | | 3.62 [id number] maxP.25 mmHgLVOT meanP.54 mmHgLVSI Dopp: 39.38 ml/m2LVSV | | Dopp: 87.04 mlLVOT Vmax: 0.90 m/sLVOT Vmean: 0.58 m/sLVOT VTI: 17.71 cmMV A Robbin: | | 0.57 m/sMV DecT: 216.56 msMV E Robbin: 0.54 m/sMV E/A Ratio: 0.95Septal e': 0.04 | | m/sSeptal E/e': 12.19Lateral e': 0.05 m/sLateral E/e': 9.85PV maxP.53 | | mmHgPV Vmax: 0.79 m/sRAP: 5 mmHgRVSP: 36.21 mmHgTR maxP.21 mmHgTR Vmax: | | 2.79 m/s Product Safety Technical Assistant: ARNELuthenticated by: Kosta Jarquin MDReport Date/Time: 06-13-2014 | | 21:35:05 IMPRESSION: 1. Overall left ventricular systolic function is normal with, an EF | | between 60 - 65 %.2. The diastolic filling pattern indicates impaired relaxation | | consistent with mild dysfunction (Grade I).3. The right ventricle is severely | | enlarged.4. The left atrium is markedly dilated.5. There is mild pulmonary | | hypertension.6. The ascending aorta is dilated measuring up to 3.8cm. | |Ao asc: 3.75 cm | |IVC: 1.67 cm | |LA Diam: 4.12 cm | |EDV(Teich): 119.85 ml | |IVSd: 1.34 cm | |LVIDd: 5.02 cm | |LVPWd: 1.31 cm | |LVOT Diam: 2.50 cm | |%FS: 34.09 % | |EF(Teich): 62.78 % | |ESV(Teich): 44.59 ml | |LVIDs: 3.31 cm | |SV(Teich): 75.25 ml | |RVIDd: 4.27 cm | |LVEF MOD A2C: 58.82 % | |SV MOD A2C: 47.09 ml | |LVEF MOD A4C: 62.96 % | |SV MOD A4C: 108.88 ml | |EF Biplane: 64.89 % | |LVEDV MOD BP: 135.48 ml | |LVESV MOD BP: 47.56 ml | |LVEDV MOD A2C: 80.05 ml | |LVLd A2C: 6.66 cm | |LVEDV MOD A4C: 172.92 ml | |LVLd A4C: 8.93 cm | |LVESV MOD A2C: 32.96 ml | |LVLs A2C: 6.07 cm | |LVESV MOD A4C: 64.04 ml | |LVLs A4C: 6.54 cm | |LAESV(A-L): 73.08 ml | |LAESV Index (A-L): 33.07 ml/m2 | |LAAs A2C: 20.03 cm2 | |LAESV A-L A2C: 59.10 ml | |LALs A2C: 5.76 cm | |LAAs A4C: 24.77 cm2 | |LAESV A-L A4C: 88.39 ml | |LALs A4C: 5.89 cm | |RAAs: 20.77 cm2 | |RAESV A-L: 73.57 ml | |RAESV MOD: 66.42 ml | |RALs: 4.97 cm | |Ao Diam: 3.97 cm | |AV maxP.38 mmHg | |AV meanP.20 mmHg | |AV Vmax: 1.16 m/s | |AV Vmean: 0.86 m/s | |AV VTI: 23.98 cm | |SIGIFREDO Vmax: 3.82 cm2 | |SIGIFREDO (VTI): 3.62 cm2 | |LVOT maxP.25 mmHg | |LVOT meanP.54 mmHg | |LVSI Dopp: 39.38 ml/m2 | |LVSV Dopp: 87.04 ml | |LVOT Vmax: 0.90 m/s | |LVOT Vmean: 0.58 m/s | |LVOT VTI: 17.71 cm | |MV A Robbin: 0.57 m/s | |MV DecT: 216.56 ms | |MV E Robbin: 0.54 m/s | |MV E/A Ratio: 0.95 | |Septal e': 0.04 m/s | |Septal E/e': 12.19 | |Lateral e': 0.05 m/s | |Lateral E/e': 9.85 | |PV maxP.53 mmHg | |PV Vmax: 0.79 m/s | |RAP: 5 mmHg | |RVSP: 36.21 mmHg | |TR maxP.21 mmHg | |TR Vmax: 2.79 m/s | | | |Product Safety Technical Assistant: KR | |Authenticated by: Kosta Jarquin MD | |Report Date/Time: 06-13-2014 21:35:05 | | | |IMPRESSION: | |1. Overall left ventricular systolic function is normal with, an EF between 60 - 65 %. | |2. The diastolic filling pattern indicates impaired relaxation consistent with mild dysfunc tion (Grade I). | |3. The right ventricle is severely enlarged. | |4. The left atrium is markedly dilated. | |5. There is mild pulmonary hypertension. | |6. The ascending aorta is dilated measuring up to 3.8cm. | + + documented in this encounter Visit Diagnoses Not on filedocumented in this encounter"
--- OUTSIDE RECORDS SUMMARY | ~2020-02-14 | XMS | Encounter Summary ---
Demographics + + + | Address | [address] | | | [place] [address] | + + + | Home Phone | | + + + | Preferred Language | Unknown | + + + | Marital Status | | + + + | Orthodoxy Affiliation | Unknown | + + + | Race | Unknown | + + + | Ethnic Group | Unknown | + + + Author + + + | Author | [facility] | | | and [place] | + + + | Organization | [facility] | | | and [place] | + + + | Address | Unknown | + + + | Phone | Unavailable | + + + Support + + +---------+ + | Name | Relationship | Address | Phone | + + +---------+ + | Torri Sanchez | ECON | Unknown | | + + +---------+ + | [facility] | | + + +---------+ + Care Team Providers + +------+ + | Care Job Printer Apprentice Name | Role | Phone | + [...] + + | 11/14/ | Procedure | [facility] | | History of loop | | 2020 | visit | [facility] [place] | | recorder (Primary | | | | [address] | | Dx) | | | | [place], [place] | | | | | | [address] | | | | | | [phone] | | | +--------+ + + + [...] of this encounter Procedure Notes Kristen Hudson, Printing Equipment Mechanic - 11/15/2019 8:00 AM PDTAssociated Order(s): DEVICE INT ERROGATION- [...] Ventricular high rate episodes: None. Symptoms: There is one patient triggered symptom on 11/07/2019 at 20:06 that does not appear to correlate to any significant arrhythmias. Per patient, he triggered for "hip pain" seco ndary to a "tripping" incident that morning. Per patient, he had no dizziness, lightheadedn ess or any other symptoms at the time of tripping, states he "didn't have both feet under hi m properly" and sustained a "groin pull from almost doing the splits". There are no other E GM's to review.. Additional comments: None. Follow up: The next scheduled interrogation will be in 5 weeks. Impression: 1. No significant bradyarrhythmias were noted. 2. No significant tachyarrhythmias were noted. 3. Patient activated episodes correspond to no significant arrhythmias. Reviewed by: Kristen Hudson, Device Clinic Associated attestation - Shayla Ram ANP - 11/20/2019 10:09 AM PDTDevice follow up Device data was personally reviewed by me. Device function is nominal. There is adequate remaining battery life. No events Symptom activation correlated with NSR For additional details regarding device information, data and rhythm strips, please see latrice se/organic extractions technician entry in the notes section and device download information in scanned document s. MARTHA Jauregui documented in this encounter Plan of Treatment [...] [facility] | | | | | | [id number] | | | | | | | [...] this encounter Results Device Interrogation - Remote (11/15/2019 8:00 AM PDT) + + + | Narrative | Performed At | + + + | Kristen Landeros | DEB | | Tristan, Printing Equipment Mechanic 11/15/2019 8:57 AM IMPLANTABLE LOOP | | | RECORDER REMOTE INTERROGATION REPORT Name: Carla Sanchez Jr. | | | PCP: Deidre Stiles MD : 1945MRN: [id number] | | | Primary cardiology provider: Kosta [...] Ventricular high rate episodes: None. Symptoms: There is | | | one patient triggered symptom on 11/07/2019 at 20:06 that does not | | | appear to correlate to any significant arrhythmias. Per patient, he | | | triggered for "hip pain" secondary to a "tripping" incident that | | | morning. Per patient, he had no dizziness, lightheadedness or any | | | other symptoms at the time of tripping, states he "didn't have both | | | feet under him properly" and sustained a "groin pull from almost doing | | | the splits". There are no other EGM's to review.. Additional | | | comments: None. Follow up: The next scheduled interrogation will be in | | | 5 weeks. Impression:1. No significant bradyarrhythmias were noted.2. | | | No significant tachyarrhythmias were noted.3. Patient activated | | | episodes correspond to no significant arrhythmias. Reviewed by: Kristen | | | Tristan, Device Clinic | | | | | |Known history of atrial flutter or atrial fibrillation: No | | | | | |Current antithrombotic therapy including: aspirin | | | | | | | | |Ventricular events: Ventricular high rate episodes: None. | | | | | |Symptoms: There is one patient triggered symptom on 11/07/2019 at | | |20:06 that does not appear to correlate to any significant | | |arrhythmias. Per patient, he triggered for "hip pain" secondary | | |to a "tripping" incident that morning. Per patient, he had no | | |dizziness, lightheadedness or any other symptoms at the time of | | |tripping, states he "didn't have both feet under him properly" | | |and sustained a "groin pull from almost doing the splits". There | | |are no other EGM's to review.. | | | | | |Additional comments: [...] Primary | + + documented in this encounter
--- OUTSIDE RECORDS SUMMARY | ~2020-02-14 | XMS | Encounter Summary ---
Demographics + + + | Address | [address] | | | [place] [address] | + + + | Home Phone | | + + + | Preferred Language | Unknown | + + + | Marital Status | | + + + | Adventist Affiliation | Unknown | + + + [...] | | + + +---------+ + | [facility] | ECON | Unknown | | + + +---------+ + Care Team Providers + +------+ + | Care Multi Operation Machine Operator Name | Role | Phone | + +------+ + | Deidre Urbano | PCP | | | MD | | | + +------+ + Encounter Details +--------+ + + + + | Date | Type | Department | Care Team | Description | +--------+ + + + + | 12/18/ | Orders Only | [facility] | Conversion | | | 2015 | | CONVERSION [address] | Transaction, | | | | | [address] | Provider Unknown | | | | | [place] | [phone] | | | | | [address] | | | | | | [phone] | | | +--------+ + + + [...] [place] | | | | | | [id number] | | | | | | | | +--------+ + + + + | 02/27/ | Procedure | Cardiology | | | | 2019 | visit | | | | +--------+ + + + + documented as of this encounter Visit Diagnoses Not on filedocumented in this encounter"
--- OUTSIDE RECORDS SUMMARY | ~2020-02-14 | XMS | Encounter Summary ---
Demographics + + + | Address | [address] | | | [place] [address] | + + + | Home Phone | | + + + | Preferred Language | Unknown | + + + | Marital Status | | + + + | Yazdanism Affiliation | Unknown | + + + | Race | Unknown | + + + | Ethnic Group | Unknown | + + + Author + + + | Author | [facility] | | | and [place] | + + + | Organization | [facility] | | | and [...] Team Providers + +------+ + | Care Tip Printer Name | Role | Phone | + +------+ + PCP | Unavailable | + +------+ + Encounter Details +--------+ + + + + | Date | Type | Department | Care Team | Description | +--------+ + + + + | 04/03/ | Hospital | [facility] | Elvis Dueñas MD | Hemoptysis | | 2006 - | Encounter | [facility] | [address] | | | | | CLINICAL DECISION | [address] | | | 10/23/ | | [address] | [place], [place] | | | 2005 | | [place], [place] | [address] | | | | | [address] | [phone] | | | | | [phone] | | | +--------+ + + + [...] | | | | | [place], [place] | | | | | | [address] | | | | | | | | +--------+ + + + + | 02/27/ | Procedure | Cardiology | | | | 2019 | visit | | | | +--------+ + + + + documented as of this encounter Visit Diagnoses + + | Diagnosis | + + | Hemoptysis Hemoptysis, unspecified | + + documented in this encounter"
--- OUTSIDE RECORDS SUMMARY | ~2020-02-14 | XMS | Encounter Summary ---
Demographics + + + | Address | [address] | | | [place] [address] | + + + | Home Phone | | + + + | Preferred Language | Unknown | + + + | Marital Status | | + + + | Restorationist Affiliation | Unknown | + + + [...] | | + + +---------+ + | [facility] | ECON | Unknown | | + + +---------+ + Care Team Providers + +------+ + | Care E Commerce Merchandising Coordinator Name | Role | Phone | + +------+ + PCP | Unavailable | + +------+ + Encounter Details +--------+ + + + + | Date | Type | Department | Care Team | Description | +--------+ + + + + | 03/06/ | Hospital | [facility] | Kosta Jarquin MD | Other malaise and | | 2010 | Encounter | [address] | [address] | fatigue | | | | [address] | [place] [address] | | | | | [place], [place] | [phone] | | | | | [address] | | | | | | [phone] | | | +--------+ + + + [...] | | | | | [place], [place] | | | | | | [address] | | | | | | | [...] | + +--------+ + + + | CV CARDIAC PROCEDURE | Routin | 03/06/2011 | | Results for this | | | e | 11:09 AM | | procedure are in the | | | | PDT | | results section. | + +--------+ + + + | CV CARDIAC PROCEDURE | Routin | 03/06/2011 | | Results for this | | | e | 11:09 AM | | procedure are in the | | | | PDT | | results section. | + +--------+ + + + documented in this encounter Results CV CARDIAC PROCEDURE (03/06/2011 11:09 AM PDT) + + | Specimen | + + | | + + + + + | Narrative | Performed At | + + + | PROCEDURE 1. Coronary angiogram. 2. Fractional flow reserve for | | | mid left anterior descending lesions. 3. Fractional flow reserve for | | | mid right coronary artery lesion. INDICATIONS The patient is a | | | 65-year-old gentleman with a history of hypertension and coronary | | | artery disease status post 2 stents in the LAD and 2 stents in the | | | RCA, who presented with generalized complaints of easy fatigability | | | and tiredness similar to the previous feeling he had before | | | implantation of his stents. DESCRIPTION OF PROCEDURE After | | | explaining to the patient the procedure details, complications, | | | alternatives, an informed consent was obtained and the patient was | | | transferred to the lab where time out was performed in the presence of | | | the nurses and the doctor. The patient's right wrist was prepped and | | | anesthesia with 2% lidocaine. The right radial artery was cannulated | | | using Seldinger technique with 6-Bermudian 11 cm BigML sheath. Adán | | | diagnostic catheter was advanced over 150 angled stiff ZipGlide wire | | | to the ascending aorta. The Adán catheter used to cannulate the left | | | main, and contrast was injected taking different views for the LAD | | | and the left circumflex in different angles. Then the Adán was | | | switched to the right coronary artery, and contrast was injected and | | | selective angiogram for the right coronary artery was obtained in | | | different views. It was noted that the mid LAD had 50% to 60% lesion, | | | and so decision was made to proceed with FFR assessment. It was also | | | noted that there is mid RCA 50% lesion. Adán catheter was exchanged | | | for a 6-Bermudian Kimny guide. Angiomax was given to the patient after | | | confirming ACT above 200. Kimny was engaged to the left main. FFR | | | wire was advanced down to the LAD. Adenosine 140 mcg/kg per minute | | | was administered to the patient for total of 2 minutes 30 seconds. It | | | was stopped due to the side effects to the patient. The FFR was | | | negative at 0.87. FFR wire was pulled. Selective angiogram for the | | | LAD was done, confirming no complications due to advancement of the | | | FFR wire. Kimny was disengaged from the left main and switched to | | | engage the right coronary artery. FFR wire was advanced down to the | | | right coronary artery. Adenosine 140 mcg/kg per minute was started | | | for the patient,and it had to be stopped at 2 minutes 30 seconds due | | | to side effects. FFR was negative at 0.92. The FFR wire was pulled | | | and a selective angiogram for the right coronary artery was done. | | | Kimny was removed and sheath was removed from the right radial artery | | | and a TR band was applied to secure hemostasis. Patient was | | | transferred to the observation unit in stable condition. FINDINGS | | | HEMODYNAMICS Systemic pressure 100/68. ANGIOGRAM FINDINGS | | | Left main normal size. No significant stenosis. Ramus artery large, | | | 10% to 20% stenosis branching, supplying OM-1 and OM-2 territories. | | | No significant stenosis in the branches. Left circumflex artery is | | | small artery, normal-size artery. No significant stenosis in the | | | proximal and mid, size indeterminate, small. OM-3 which is small in | | | size and no significant stenosis. Proximal LAD is large size with no | | | significant stenosis. Mid LAD has patent stent with 50% to 60% | | | in-stent stenosis in the distal stent. This lesion was assessed by | | | FFR and it was negative at 0.87. Distal LAD normal size, free of | | | stenosis. First diagonal normal size, no significant stenosis. Second | | | diagonal small in size, no significant stenosis. D3 is absent. | | | Right coronary artery proximal part is normal size, no significant | | | stenosis. Mid RCA has stent that has 50% in-stent restenosis and this | | | lesion was assessed by FFR which was negative at 0.92. Distal RCA | | | normal size, 10% stenosis. Right PDA is absent. The acute RV | | | marginal serves as a small PDA. Right AV groove large size, no | | | significant stenosis. There are 4 right posterolateral arteries, all | | | normal size, no significant stenosis. It is a right dominant | | | circulation. INTERVENTION 1. FFR 0.87 for the mid LAD in-stent | | | restenosis. 2. FFR 0.92 for mid RCA in-stent restenosis. | | | CONCLUSIONS 1. Normal systemic pressure. 2. Visible disease with | | | patent stents in the left anterior descending and the right | | | coronary artery with 50% to 60% in-stent restenosis in the mid | | | left anterior descending and the mid right coronary artery with | | | negative fractional flow reserve for both lesions. RECOMMENDATIONS | | | Continue aggressive risk factor modifications and medical | | | management. Follow up with Dr. Jarquin in 2 weeks. ESTIMATED | | | BLOOD LOSS Less than 50 mL. P DT: | | | 03/07/2011 09:20 A NICO/justina/[id number]/ Read by KOSTA JARQUIN MD | | | 03/06/2011 12:42 P Electronically signed by KOSTA JARQUIN MD on | | | 11/04/2011 7:43 AM | | + + + + + | Procedure Note | + + | Tariq, Oswaldo Conversion - 03/11/2019 12:54 PM PDT PROCEDURE | | 1. Coronary angiogram. | | 2. Fractional flow reserve for mid left anterior descending lesions. | | 3. Fractional flow reserve for mid right coronary artery lesion. | | | | INDICATIONS | | The patient is a 65-year-old gentleman with a history of hypertension | | and coronary artery disease status post 2 stents in the LAD and 2 stents | | in the RCA, who presented with generalized complaints of easy | | fatigability and tiredness similar to the previous feeling he had before | | implantation of his stents. | | | | DESCRIPTION OF PROCEDURE | | After explaining to the patient the procedure details, complications, | | alternatives, an informed consent was obtained and the patient was | | transferred to the lab where time out was performed in the presence of | | the nurses and the doctor. The patient's right wrist was prepped and | | anesthesia with 2% lidocaine. The right radial artery was cannulated | | using Seldinger technique with 6-Bermudian 11 cm TerumAtriCure sheath. Adán | | diagnostic catheter was advanced over 150 angled stiff ZipGlide wire | | to the ascending aorta. The Adán catheter used to cannulate the left | | main, and contrast was injected taking different views for the LAD and | | the left circumflex in different angles. Then the Adán was switched to | | the right coronary artery, and contrast was injected and selective | | angiogram for the right coronary artery was obtained in different views. | | It was noted that the mid LAD had 50% to 60% lesion, and so decision was | | made to proceed with FFR assessment. It was also noted that there is mid | | RCA 50% lesion. Adán catheter was exchanged for a 6-Bermudian Kimny guide. | | Angiomax was given to the patient after confirming ACT above 200. Kimny | | was engaged to the left main. FFR wire was advanced down to the LAD. | | Adenosine 140 mcg/kg per minute was administered to the patient for | | total of 2 minutes 30 seconds. It was stopped due to the side effects to | | the patient. The FFR was negative at 0.87. FFR wire was pulled. | | Selective angiogram for the LAD was done, confirming no complications | | due to advancement of the FFR wire. Kimny was disengaged from the left | | main and switched to engage the right coronary artery. FFR wire was | | advanced down to the right coronary artery. Adenosine 140 mcg/kg per | | minute was started for the patient,and it had to be stopped at 2 minutes | | 30 seconds due to side effects. FFR was negative at 0.92. The FFR wire | | was pulled and a selective angiogram for the right coronary artery was | | done. Kimny was removed and sheath was removed from the right radial | | artery and a TR band was applied to secure hemostasis. Patient was | | transferred to the observation unit in stable condition. | | | | FINDINGS | | | | HEMODYNAMICS | | Systemic pressure 100/68. | | | | ANGIOGRAM FINDINGS | | Left main normal size. No significant stenosis. | | Ramus artery large, 10% to 20% stenosis branching, supplying OM-1 and | | OM-2 territories. No significant stenosis in the branches. | | Left circumflex artery is small artery, normal-size artery. No | | significant stenosis in the proximal and mid, size indeterminate, | | small. | | OM-3 which is small in size and no significant stenosis. | | Proximal LAD is large size with no significant stenosis. | | Mid LAD has patent stent with 50% to 60% in-stent stenosis in the distal | | stent. This lesion was assessed by FFR and it was negative at 0.87. | | Distal LAD normal size, free of stenosis. | | First diagonal normal size, no significant stenosis. Second diagonal | | small in size, no significant stenosis. D3 is absent. | | Right coronary artery proximal part is normal size, no significant | | stenosis. Mid RCA has stent that has 50% in-stent restenosis and this | | lesion was assessed by FFR which was negative at 0.92. Distal RCA normal | | size, 10% stenosis. | | Right PDA is absent. The acute RV marginal serves as a small PDA. | | Right AV groove large size, no significant stenosis. There are 4 right | | posterolateral arteries, all normal size, no significant stenosis. It is | | a right dominant circulation. | | | | INTERVENTION | | 1. FFR 0.87 for the mid LAD in-stent restenosis. | | 2. FFR 0.92 for mid RCA in-stent restenosis. | | | | CONCLUSIONS | | 1. Normal systemic pressure. | | 2. Visible disease with patent stents in the left anterior descending | | and the right coronary artery with 50% to 60% in-stent restenosis in | | the mid left anterior descending and the mid right coronary artery | | with negative fractional flow reserve for both lesions. | | | | RECOMMENDATIONS | | Continue aggressive risk factor modifications and medical management. | | Follow up with Dr. Jarquin in 2 weeks. | | | | ESTIMATED BLOOD LOSS | | Less than 50 mL. | | | | | | P | | A | | NICO/justina/[id number]/ | | | | Read by | | KOSTA JARQUIN MD 03/06/2011 12:42 P | | | | | + + CV CARDIAC PROCEDURE (03/06/2011 11:09 AM PDT) + + | Specimen | + + | | + + + + + | Narrative | Performed At | + + + | PROCEDURE 1. Coronary angiogram. 2. Fractional flow reserve for | | | mid left anterior descending lesions. 3. Fractional flow reserve for | | | mid right coronary artery lesion. INDICATIONS The patient is a | | | 65-year-old gentleman with a history of hypertension and coronary | | | artery disease status post 2 stents in the LAD and 2 stents in the | | | RCA, who presented with generalized complaints of easy fatigability | | | and tiredness similar to the previous feeling he had before | | | implantation of his stents. DESCRIPTION OF PROCEDURE After | | | explaining to the patient the procedure details, complications, | | | alternatives, an informed consent was obtained and the patient was | | | transferred to the lab where time out was performed in the presence of | | | the nurses and the doctor. The patient's right wrist was prepped and | | | anesthesia with 2% lidocaine. The right radial artery was cannulated | | | using Seldinger technique with 6-Bermudian 11 cm TerumAtriCure sheath. Adán | | | diagnostic catheter was advanced over 150 angled stiff ZipGlide wire | | | to the ascending aorta. The Adán catheter used to cannulate the left | | | main, and contrast was injected taking different views for the LAD | | | and the left circumflex in different angles. Then the Adán was | | | switched to the right coronary artery, and contrast was injected and | | | selective angiogram for the right coronary artery was obtained in | | | different views. It was noted that the mid LAD had 50% to 60% lesion, | | | and so decision was made to proceed with FFR assessment. It was also | | | noted that there is mid RCA 50% lesion. Adán catheter was exchanged | | | for a 6-Bermudian Kimny guide. Angiomax was given to the patient after | | | confirming ACT above 200. Kimny was engaged to the left main. FFR | | | wire was advanced down to the LAD. Adenosine 140 mcg/kg per minute | | | was administered to the patient for total of 2 minutes 30 seconds. It | | | was stopped due to the side effects to the patient. The FFR was | | | negative at 0.87. FFR wire was pulled. Selective angiogram for the | | | LAD was done, confirming no complications due to advancement of the | | | FFR wire. Kimny was disengaged from the left main and switched to | | | engage the right coronary artery. FFR wire was advanced down to the | | | right coronary artery. Adenosine 140 mcg/kg per minute was started | | | for the patient,and it had to be stopped at 2 minutes 30 seconds due | | | to side effects. FFR was negative at 0.92. The FFR wire was pulled | | | and a selective angiogram for the right coronary artery was done. | | | Kimny was removed and sheath was removed from the right radial artery | | | and a TR band was applied to secure hemostasis. Patient was | | | transferred to the observation unit in stable condition. FINDINGS | | | HEMODYNAMICS Systemic pressure 100/68. ANGIOGRAM FINDINGS | | | Left main normal size. No significant stenosis. Ramus artery large, | | | 10% to 20% stenosis branching, supplying OM-1 and OM-2 territories. | | | No significant stenosis in the branches. Left circumflex artery is | | | small artery, normal-size artery. No significant stenosis in the | | | proximal and mid, size indeterminate, small. OM-3 which is small in | | | size and no significant stenosis. Proximal LAD is large size with no | | | significant stenosis. Mid LAD has patent stent with 50% to 60% | | | in-stent stenosis in the distal stent. This lesion was assessed by | | | FFR and it was negative at 0.87. Distal LAD normal size, free of | | | stenosis. First diagonal normal size, no significant stenosis. Second | | | diagonal small in size, no significant stenosis. D3 is absent. | | | Right coronary artery proximal part is normal size, no significant | | | stenosis. Mid RCA has stent that has 50% in-stent restenosis and this | | | lesion was assessed by FFR which was negative at 0.92. Distal RCA | | | normal size, 10% stenosis. Right PDA is absent. The acute RV | | | marginal serves as a small PDA. Right AV groove large size, no | | | significant stenosis. There are 4 right posterolateral arteries, all | | | normal size, no significant stenosis. It is a right dominant | | | circulation. INTERVENTION 1. FFR 0.87 for the mid LAD in-stent | | | restenosis. 2. FFR 0.92 for mid RCA in-stent restenosis. | | | CONCLUSIONS 1. Normal systemic pressure. 2. Visible disease with | | | patent stents in the left anterior descending and the right | | | coronary artery with 50% to 60% in-stent restenosis in the mid | | | left anterior descending and the mid right coronary artery with | | | negative fractional flow reserve for both lesions. RECOMMENDATIONS | | | Continue aggressive risk factor modifications and medical | | | management. Follow up with Dr. Jarquin in 2 weeks. ESTIMATED | | | BLOOD LOSS Less than 50 mL. P DT: | | | 03/07/2011 09:20 A NICO/justina/[id number]/ Read by KOSTA JARQUIN MD | | | 03/06/2011 12:42 P Electronically signed by KOSTA JARQUIN MD on | | | 11/04/2011 7:43 AM | | + + + + + | Procedure Note | + + | Tariq, Oswlado Conversion - 03/11/2019 12:54 PM PDT PROCEDURE | | 1. Coronary angiogram. | | 2. Fractional flow reserve for mid left anterior descending lesions. | | 3. Fractional flow reserve for mid right coronary artery lesion. | | | | INDICATIONS | | The patient is a 65-year-old gentleman with a history of hypertension | | and coronary artery disease status post 2 stents in the LAD and 2 stents | | in the RCA, who presented with generalized complaints of easy | | fatigability and tiredness similar to the previous feeling he had before | | implantation of his stents. | | | | DESCRIPTION OF PROCEDURE | | After explaining to the patient the procedure details, complications, | | alternatives, an informed consent was obtained and the patient was | | transferred to the lab where time out was performed in the presence of | | the nurses and the doctor. The patient's right wrist was prepped and | | anesthesia with 2% lidocaine. The right radial artery was cannulated | | using Seldinger technique with 6-Bermudian 11 cm Terumo sheath. Adán | | diagnostic catheter was advanced over 150 angled stiff ZipGlide wire | | to the ascending aorta. The Adán catheter used to cannulate the left | | main, and contrast was injected taking different views for the LAD and | | the left circumflex in different angles. Then the Adán was switched to | | the right coronary artery, and contrast was injected and selective | | angiogram for the right coronary artery was obtained in different views. | | It was noted that the mid LAD had 50% to 60% lesion, and so decision was | | made to proceed with FFR assessment. It was also noted that there is mid | | RCA 50% lesion. Adán catheter was exchanged for a 6-Bermudian Kimny guide. | | Angiomax was given to the patient after confirming ACT above 200. Kimny | | was engaged to the left main. FFR wire was advanced down to the LAD. | | Adenosine 140 mcg/kg per minute was administered to the patient for | | total of 2 minutes 30 seconds. It was stopped due to the side effects to | | the patient. The FFR was negative at 0.87. FFR wire was pulled. | | Selective angiogram for the LAD was done, confirming no complications | | due to advancement of the FFR wire. Kimny was disengaged from the left | | main and switched to engage the right coronary artery. FFR wire was | | advanced down to the right coronary artery. Adenosine 140 mcg/kg per | | minute was started for the patient,and it had to be stopped at 2 minutes | | 30 seconds due to side effects. FFR was negative at 0.92. The FFR wire | | was pulled and a selective angiogram for the right coronary artery was | | done. Kimny was removed and sheath was removed from the right radial | | artery and a TR band was applied to secure hemostasis. Patient was | | transferred to the observation unit in stable condition. | | | | FINDINGS | | | | HEMODYNAMICS | | Systemic pressure 100/68. | | | | ANGIOGRAM FINDINGS | | Left main normal size. No significant stenosis. | | Ramus artery large, 10% to 20% stenosis branching, supplying OM-1 and | | OM-2 territories. No significant stenosis in the branches. | | Left circumflex artery is small artery, normal-size artery. No | | significant stenosis in the proximal and mid, size indeterminate, | | small. | | OM-3 which is small in size and no significant stenosis. | | Proximal LAD is large size with no significant stenosis. | | Mid LAD has patent stent with 50% to 60% in-stent stenosis in the distal | | stent. This lesion was assessed by FFR and it was negative at 0.87. | | Distal LAD normal size, free of stenosis. | | First diagonal normal size, no significant stenosis. Second diagonal | | small in size, no significant stenosis. D3 is absent. | | Right coronary artery proximal part is normal size, no significant | | stenosis. Mid RCA has stent that has 50% in-stent restenosis and this | | lesion was assessed by FFR which was negative at 0.92. Distal RCA normal | | size, 10% stenosis. | | Right PDA is absent. The acute RV marginal serves as a small PDA. | | Right AV groove large size, no significant stenosis. There are 4 right | | posterolateral arteries, all normal size, no significant stenosis. It is | | a right dominant circulation. | | | | INTERVENTION | | 1. FFR 0.87 for the mid LAD in-stent restenosis. | | 2. FFR 0.92 for mid RCA in-stent restenosis. | | | | CONCLUSIONS | | 1. Normal systemic pressure. | | 2. Visible disease with patent stents in the left anterior descending | | and the right coronary artery with 50% to 60% in-stent restenosis in | | the mid left anterior descending and the mid right coronary artery | | with negative fractional flow reserve for both lesions. | | | | RECOMMENDATIONS | | Continue aggressive risk factor modifications and medical management. | | Follow up with Dr. Jarquin in 2 weeks. | | | | ESTIMATED BLOOD LOSS | | Less than 50 mL. | | | | | | P | | A | | NICO/justina/[id number]/ | | | | Read by | | KOSTA JARQUIN MD 03/06/2011 12:42 P | | | | | + + documented in this encounter Visit Diagnoses + + | Diagnosis | + + | Other malaise and fatigue | + + documented in this encounter"
--- OUTSIDE RECORDS SUMMARY | ~2020-02-14 | XMS | Encounter Summary ---
Demographics + + + | Address | [address] | | | [place] [address] | + + + | Home Phone | | + + + | Preferred Language | Unknown | + + + | Marital Status | | + + + | Yazidi Affiliation | Unknown | + + + | Race | Unknown | + + + | Ethnic Group | Unknown | + + + Author + + + | Author | [facility] | | | and [place] | + + + | Organization | [facility] | | [...] + + +---------+ + | [facility] | ECON | Unknown | | + + +---------+ + Care Team Providers + +------+ + | Care Shear Helper Name | Role | Phone | + +------+ + PCP | Unavailable | + +------+ + Encounter Details +--------+ + + + + | Date | Type | Department | Care Team | Description | +--------+ + + + + | 05/03/ | Hospital | [facility] | Ilene Mcdaniel MD | Unspecified Chest | | 2007 - | Encounter | [facility] | [address] | Pain | | | | CLINICAL DECISION | Juan Burrell | | | 05/04/ | | [address] | [place], [place] | | | 2007 | | [place], [place] | [address] | | | | | [address] | [phone] | | | | | [phone] | | | +--------+ + + + [...] | | | | | | [place] [facility] | | | | | | [id number] | | | | | | | [...]
--- OUTSIDE RECORDS SUMMARY | ~2020-02-14 | XMS | Encounter Summary ---
Demographics + + + | Address | [address] | | | [place] [address] | + + + | Home Phone | | + + + | Preferred Language | Unknown | + + + | Marital Status | | + + + | Episcopalian Affiliation | Unknown | + + + [...] + + +---------+ + | [facility] | ECON | Unknown | | + + +---------+ + Care Team Providers + +------+ + | Care Food And Beverage Service Manager Name | Role | Phone | + +------+ + | Deidre Urbano | PCP | | | MD | | | + +------+ + Encounter Details +--------+ + + + + | Date | Type | Department | Care Team | Description | +--------+ + + + + | 12/24/ | Orders Only | [facility] | Kosta Jarquin MD | | | 2016 | | CARDIOLOGY [place] | [address] | | | | | [address] | [place] [address] | | | | | [address] | [phone] | | | | | [place], [place] | | | | | | [address] | | | | | | [phone] | | | +--------+ + + + [...] | 2019 | Visit | | [address] | | | | | | [place] | | | | | | [address] | | | | | | | [...] | + +--------+ + + + | NM MYOCARDIAL | Routin | 12/25/2015 | | Results for this | | PERFUSION MULT SPECT | e | 1:59 PM | | procedure are in the | | | | PDT | | results section. | + +--------+ + + + documented in this encounter Results NM Myocardial Perfusion Mult SPECT (12/25/2015 1:59 PM PDT) + + | Specimen | + + | | + + + + + | Impressions | Performed At | + + + | Abnormal study. Low to intermediate risk. Evidence of ischemia in | | | the left circumflex territory. LVEF 59 % Poor exercise tolerance. | | | No chest pain. Evidence of No ischemic ischemic ECG changes Mcneil | | | Treadmill Score is 1.5 ( intermediate risk) Comparison of previous | | | nuclear stress test on 07/21/2012 showed new evidence of ischemia in | | | the left circumflex territory. | | + + + + + + | Narrative | Performed At | + + + | [facility] [address], [place], [place] | | | [phone] NUCLEAR TREADMILL STRESS TEST WITH LEXISCAN | | | INTERVENTION ? Test Date: 12/25/2015 Name: Carla Sanchez : | | | 1945 Ordering MD:Kosta Jarquin MD | | | History: 70 year old male being evaluated for coronary artery disease | | | Rest Data: HR: 60 bmp BP: 125/90 Patient's predicted maximum | | | HR: 150 bmp Patient's predicted 85% maximum HR: 128 bmp Baseline | | | ECG: Sinus rhythm, heart rate 62, PACs, normal axis, right bundle | | | branch block Stress Data: Exercise time: 01:36 METS: 4.60 Peak | | | HR: 103 bpm Peak BP: 125 90 RPP: [id number] Patient stopped due to: | | | bilateral leg fatigue Chest pain: none Stress ECG: Evidence of No | | | ischemic ECG changes Arrhythmias: none Myocardial Perfusion: | | | Images are adequate for interpretation. Evidence of perfusion defect | | | in the inferior lateral wall, apex to mid, small to moderate in size, | | | mild to moderate in severity, reversible. SSS: 3 SRS: 0 SDS: 3 TID: | | | 0.96 Gated Images: Rest EDV: 116 mL Rest ESV: 45 mL Rest EF: 61 % | | | Stress EDV: 107 mL Stress ESV: 44 mL Stress EF: 59 % No evidence of | | | regional wall motion abnormality Procedure: Eleazar protocol. 11.1 | | | mCi of 99m Tc Myoview was given intravenously for rest images. 31.8 | | | mCi of 99m Tc Myoview was given intravenously for stress images at | | | 02:16 seconds. Effective Dose Equivalent 14.8 mSv The patient | | | received 0.4mg Lexiscan given intravenously over 10 seconds due to | | | failure of achieving adequate peak heart rate. | | + + + + + | Procedure Note | + + | Oswaldo Potter Conversion - 03/10/2019 11:07 AM [facility] [id number] | | Dr [place], [phone] NUCLEAR TREADMILL STRESS TEST WITH LEXISCAN | | INTERVENTION?Test Date: 12/25/2015Name: Kanchan Sanchez: 1945MRN: | | [id number] MD:Kosta Jarquin MD History:70 year old male being evaluated for | | coronary artery disease Rest Data:HR: 60 bmp BP: 125/90Patient's predicted maximum HR: | | 150 bmpPatient's predicted 85% maximum HR: 128 bmpBaseline ECG: Sinus rhythm, heart rate | | 62, PACs, normal axis, right bundle branch block Stress Data:Exercise time: 01:36 METS: | | 4.60Peak HR: 103 bpm Peak BP: 125 90 RPP: [id number] stopped due to: bilateral leg | | fatigueChest pain: noneStress ECG: Evidence of No ischemic ECG changesArrhythmias: none | | Myocardial Perfusion:Images are adequate for interpretation.Evidence of perfusion defect | | in the inferior lateral wall, apex to mid, small to moderate in size, mild to moderate | | in severity, reversible.SSS: 3 SRS: 0 SDS: 3 TID: 0.96 Gated Images:Rest EDV: 116 mL | | Rest ESV: 45 mL Rest EF: 61 %Stress EDV: 107 mL Stress ESV: 44 mL Stress EF: 59 %No | | evidence of regional wall motion abnormality Procedure: Eleazar protocol.11.1 mCi of 99m | | Tc Myoview was given intravenously for rest images.31.8 mCi of 99m Tc Myoview was given | | intravenously for stress images at 02:16 seconds.Effective Dose Equivalent 14.8 mSvThe | | patient received 0.4mg Lexiscan given intravenously over 10 seconds due to failure of | | achieving adequate peak heart rate. IMPRESSION: Abnormal study. Low to intermediate | | risk.Evidence of ischemia in the left circumflex territory.LVEF 59 %Poor exercise | | tolerance.No chest pain.Evidence of No ischemic ischemic ECG changesDuke Treadmill Score | | is 1.5 ( intermediate risk)Comparison of previous nuclear stress test on 07/21/2012 | | showed new evidence of ischemia in the left circumflex territory. | |Peak HR: 103 bpm Peak BP: 125 90 RPP: [id number] | |Patient stopped due to: bilateral leg fatigue | |Chest pain: none | |Stress ECG: Evidence of No ischemic ECG changes | |Arrhythmias: none | | | |Myocardial Perfusion: | |Images are adequate for interpretation. | |Evidence of perfusion defect in the inferior lateral wall, apex to mid, small to moderate i n size, mild to moderate in severity, reversible. | |SSS: 3 SRS: 0 SDS: 3 TID: 0.96 | | | |Gated Images: | |Rest EDV: 116 mL Rest ESV: 45 mL Rest EF: 61 % | |Stress EDV: 107 mL Stress ESV: 44 mL Stress EF: 59 % | |No evidence of regional wall motion abnormality | | | |Procedure: Eleazar protocol. | |11.1 mCi of 99m Tc Myoview was given intravenously for rest images. | |31.8 mCi of 99m Tc Myoview was given intravenously for stress images at 02:16 seconds. | |Effective Dose Equivalent 14.8 mSv | |The patient received 0.4mg Lexiscan given intravenously over 10 seconds due to failure of a chieving adequate peak heart rate. | | | |IMPRESSION: | |Abnormal study. Low to intermediate risk. | |Evidence of ischemia in the left circumflex territory. | |LVEF 59 % | |Poor exercise tolerance. | |No chest pain. | |Evidence of No ischemic ischemic ECG changes | |Mcneil Treadmill Score is 1.5 ( intermediate risk) | |Comparison of previous nuclear stress test on 07/21/2012 showed new evidence of ischemia in the left circumflex territory. | | | | | + + documented in this encounter Visit Diagnoses Not on filedocumented in this encounter"
--- OUTSIDE RECORDS SUMMARY | ~2020-02-14 | XMS | Encounter Summary ---
Demographics + + + | Address | [address] | | | [place] [address] | + + + | Home Phone | | + + + | Preferred Language | Unknown | + + + | Marital Status | | + + + | Hoahaoism Affiliation | Unknown | + + + | Race | Unknown | + + + | Ethnic Group | Unknown | + + + Author + + + | Author | [facility] | | | and [place] | + + + | Organization | [facility] | | | [...] Team Providers + +------+ + | Care Technical Sales Specialist Name | Role | Phone | + +------+ + | Deidre Urbano | PCP | | | MD | | | + +------+ + Encounter Details +--------+ + + + + | Date | Type | Department | Care Team | Description | +--------+ + + + + | 08/18/ | Orders Only | [facility] | Kosta Jarquin MD | | | 2016 | | CARDIOLOGY [place] | [address] | | | | | [address] | [place] [address] | | | | | [place], [place] | [phone] | | | | | [address] | | | | | | [phone] | | | +--------+ + + + [...] [place] | | | | | | [address] | | | | | | | [...] | + +--------+ + + + | VAS ANKLE BRACHIAL | Routin | 08/18/2016 | | Results for this | | INDEX W TREADMILL | e | 8:37 AM | | procedure are in the | | EXERCISE | | PST | | results section. | + +--------+ + + + documented in this encounter Results VAS Ankle Brachial Index w Treadmill Exe (08/18/2016 8:37 AM PST) + + | Specimen | + + | | + + + + + | Impressions | Performed At | + + + | 1. No evidence of arterial insufficiency in the right lower | | | extremity. Normal ankle brachial index on the right at rest 1.2 and | | | post-exercise 1.19. 2. No evidence of arterial insufficiency in the | | | left lower extremity. Normal ankle brachial index on the left at rest | | | 1.18 and post-exercise 1.2. 3. Spot check of the bilateral common | | | femoral bificurcations and proximal popliteal arteries shows minimal | | | atherosclerotic changes. | | + + + + + + | Narrative | Performed At | + + + | Patient Name: ELHAM LESLIE Date of : 1945 | | | Performing Physician: Alejandro Lunsford MD, | | | FACC, FACP, FASNC | | | | | | INDICATIONS Claudication, CAD CONCLUSIONS | | | 1. No evidence of arterial insufficiency in the right | | | lower extremity. Normal ankle brachial index on the right at rest 1.2 | | | and post-exercise 1.19. 2. No evidence of arterial insufficiency in | | | the left lower extremity. Normal ankle brachial index on the left at | | | rest 1.18 and post-exercise 1.2. 3. Spot check of the bilateral | | | common femoral bificurcations and proximal popliteal arteries shows | | | minimal atherosclerotic changes. FINDINGS -------- Exercise | | | parameters and findings: Patient walked for 2 minutes at 2 mph, and | | | one more minute at 1.5 mph. Thigh claudication at about 1.5 minutes. | | | Total exercise time 3 minutes. Symptoms: Thigh discomfort after about | | | 1.5 minutes with a total exercise time of 3 minutes. ALONSO RIGHT: | | | Normal ankle brachial index on the right at rest 1.2 and post-exercise | | | 1.19. ALONSO LEFT: Normal ankle brachial index on the left at rest 1.18 | | | and post-exercise 1.2. [no group]: Spot check of the bilateral | | | common femoral bificurcations and proximal popliteal arteries shows | | | minimal atherosclerotic changes. MEASUREMENTS CABINET MAKER | | | AC: 39 deg CABINET MAKER AC: 39 deg CABINET MAKER PS: 73.25 cm/s CABINET MAKER PS: | | | 82.96 cm/s Battery Loader: JEFF Authenticated by: Alejandro Lunsford MD, | | | FACC, FACP, FASNC Report Date/Time: 08-18-2016 15:32:06 | | + + + + + | Procedure Note | + + | Tariq, Rad Conversion - 03/09/2019 7:28 PM PDT Patient Name: Shelli LESLIElorna of | | : 1945 Performing Physician: Alejandro Lunsford MD, [facility], | | FACP, | | FASNC INDICATIONS--------- | | --Claudication, CAD CONCLUSIONS 1. No evidence of arterial insufficiency in | | the right lower extremity. Normal ankle brachial index on the right at rest 1.2 and | | post-exercise 1.19.2. No evidence of arterial insufficiency in the left lower extremity. | | Normal ankle brachial index on the left at rest 1.18 and post-exercise 1.2.3. Spot | | check of the bilateral common femoral bificurcations and proximal popliteal arteries | | shows minimal atherosclerotic changes. FINDINGS--------Exercise parameters and findings: | | Patient walked for 2 minutes at 2 mph, and one more minute at 1.5 mph. Thigh | | claudication at about 1.5 minutes. Total exercise time 3 minutes.Symptoms: Thigh | | discomfort after about 1.5 minutes with a total exercise time of 3 minutes.ALONSO RIGHT: | | Normal ankle brachial index on the right at rest 1.2 and post-exercise 1.19.ALONSO LEFT: | | Normal ankle brachial index on the left at rest 1.18 and post-exercise 1.2.[no group]: | | Spot check of the bilateral common femoral bificurcations and proximal popliteal | | arteries shows minimal atherosclerotic changes. MEASUREMENTS CABINET MAKER AC: 39 | | degCFA AC: 39 degCFA PS: 73.25 cm/sCFA PS: 82.96 cm/s Battery Loader: DHAuthenticated | | by: Alejandro Lunsford MD, FACC, FACP, FASNCReport Date/Time: 08-18-2016 15:32:06 | | IMPRESSION: 1. No evidence of arterial insufficiency in the right lower extremity. | | Normal ankle brachial index on the right at rest 1.2 and post-exercise 1.19.2. No | | evidence of arterial insufficiency in the left lower extremity. Normal ankle brachial | | index on the left at rest 1.18 and post-exercise 1.2.3. Spot check of the bilateral | | common femoral bificurcations and proximal popliteal arteries shows minimal | | atherosclerotic changes. | | | |MEASUREMENTS | | | |CABINET MAKER AC: 39 deg | |CABINET MAKER AC: 39 deg | |CABINET MAKER PS: 73.25 cm/s | |CABINET MAKER PS: 82.96 cm/s | | | |Battery Loader: JEFF | |Authenticated by: Alejandro Lunsford MD, FACC, FACP, [facility] | |Report Date/Time: 08-18-2016 15:32:06 | | | |IMPRESSION: | |1. No evidence of arterial insufficiency in the right lower extremity. Normal ankle brachia l index on the right at rest 1.2 and post-exercise 1.19. | |2. No evidence of arterial insufficiency in the left lower extremity. Normal ankle brachial index on the left at rest 1.18 and post-exercise 1.2. | |3. Spot check of the bilateral common femoral bificurcations and proximal popliteal arterie s shows minimal atherosclerotic changes. | + + documented in this encounter Visit Diagnoses Not on filedocumented in this encounter"
--- OUTSIDE RECORDS SUMMARY | ~2020-02-14 | XMS | Encounter Summary ---
Demographics + + + | Address | [address] | | | [place] [address] | + + + | Home Phone [...] | + + +---------+ + | [facility] | ECON | Unknown | | + + +---------+ + Care Team Providers + +------+ + | Care Lump Maker Name | Role | Phone | + +------+ + PCP | Unavailable | + +------+ + Encounter Details +--------+ + + + + | Date | Type | Department | Care Team | Description | +--------+ + + + + | 11/05/ | Hospital | [facility] | Conversion | Coronary artery | | 2017 | Encounter | [facility] CV [facility]TRA OP | Transaction, | disease involving | | | | [address] | Provider Unknown | [place] coronary | | | | [place], [place] | [phone] | artery of [place] | | | | [address] | | heart without angina | | | | [phone] | Kosta Jarquin MD | pectoris; Near | | | | | [address] | syncope | | | | | [place] [address] | | | | | | [phone] | | | | | | | [...] + + + | Blood Pressure | 122/71 | 11/05/2016 8:13 AM | | | | | PDT | | + + + + + | Pulse | 66 | 11/05/2016 8:13 AM | | | | | PDT | | + + + + + | Temperature | 36.3 C (97.4 F) | 11/05/2016 8:13 AM | | | | | PDT | | + + + + + | Respiratory Rate | 16 | 11/05/2016 8:13 AM | | | | | PDT | | + + + + + | Oxygen Saturation | - | - | | + + + + + | Inhaled Oxygen | - | - | | | Concentration | | | | + + + + + | Weight | 104.3 kg (230 lb) | 11/05/2016 8:13 AM | | | | | PDT | | + + + + + | Height | 180.3 cm (5' 11") | 11/05/2016 8:13 AM | | | | | PDT | | + + + + + | Body Mass Index | 32.08 | 11/05/2016 8:13 AM | | | | | PDT [...] 2 puffs into | | 0 | 11/06/19 | | | (PROVENTIL HFA) 90 | [...] + + documented as of this encounter H&P Notes Kosta Jarquin MD - 11/05/2016 7:41 AM PDT H&P by Kosta Jarquin MD at 11/05/16740 Author: Kosta Jarquin MD Service: Cardiology Author Type: Physician Filed: 11/05/16740 Date of Service: 11/05/16740 Status: Signed Civil Engineering Manager: Kosta Jarquin MD (Physician) [facility] Service: Cardiology Pre-Operative History & Physical Interval Update There have been no significant clinical changes since the completion of the above H&P. Moderate Sedation Presedation Assessment completed. ASA Classification: ASA 2: Patient with a mild systemic disease Kosta Jarquin MD 11/05/2016 *CORE MEASURES REMINDER: If the patient has a known or suspected infection prior to surger y, please add diagnosis to the problem list (consider: Infection 136.9). [facility]: [facility] Physician: CYDNEY ANDERSON CHIEF COMPLAINT: Chief Complaint Patient presents with Follow-up Hospital HISTORY OF PRESENT ILLNESS: Mr. Sanchez is a 70-year-old gentleman who presents today for follow-up after recent episod e of syncope. [place] 6 in the evening. He ate dinner. He was standing around midnight waiting for results of withdrawing when he started to feel woozy, dizzy. He managed to sit down at one of the machines and he lent against the machine. He felt lightheaded. A senior network security engineer checked on him and brought him a glass of water. He could hear the guard calling his name but he could not respond. He fell to the floor. The senior network security engineer tried to catch him b ut he could not. He does not remember the time between falling to the floor till the EMS arr ived. He was on the floor. He felt numb all over his body. He was taken to [facility] emergency room. He had reassuring evaluation and he was discharg ed from the ER. He denies any chest pain or palpitations. This is the second time he had this syncope since 2015. He has been compliant with his medications. Unfortunately, he continues to smoke. REVIEW OF SYSTEMS: Negative except for pertinent items noted in HPI. Review of Systems Constitutional: Fatigue. HENT: Negative for nosebleeds. Eyes: Negative for visual disturbance. Respiratory: No cough. No sputum. No shortness of breath. Cardiovascular: No chest pain. No edema. Gastrointestinal: Negative for nausea, vomiting, abdominal pain and blood in stool. Genitourinary: Negative for hematuria. Musculoskeletal: Negative for myalgias, back pain. Arthralgias. Skin: Negative for color change. Neurological: Negative for dizziness. Syncope. Numbness. Hematological: Does not bruise/bleed easily. Psychiatric/Behavioral: The patient is not nervous/anxious. PHYSICAL EXAM: BP 140/72 mmHg | Pulse 74 | Ht 1.816 m (5' 11.5") | Wt 103.964 kg (229 lb 3.2 oz) | BMI 31. 52 kg/m2 | SpO2 96% Constitutional: Well-developed. Neck: No [...] 01/09/2016 RBC 5.00 01/09/2016 HGB 15.7 01/09/2016 HCT 45.0 01/09/2016 PLT 220 01/09/2016 Lab Results Component Value Date NA 141 01/09/2016 K 3.4* 01/09/2016 CL 107 01/09/2016 CO2 26 01/09/2016 ANIONGAP 11 01/09/2016 GLUF 96 01/09/2016 BUN 10 01/09/2016 CREATININE 0.81 01/09/2016 BCR 12 01/09/2016 CA 8.7 01/09/2016 EGFR >60 01/09/2016 Lab Results Component Value Date CHOL 123 03/06/2011 TRIG 103 03/06/2011 LDL 67 03/06/2011 GLUF 96 01/09/2016 No results found for: BNP No results found for: METF Blood test October 03, 2016: WBC 13.5, hemoglobin 15.9, platelet 239 Sodium 140, potassium 3, BUN 17, creatinine 1.27. AST 15, AST 22, total protein 6.8, albumin 3.8 Troponin negative. Blood test January 2016: WBC 7.5, hemoglobin 14.6, platelet 250. Sodium 139, potassium 3.6, BUN 12, creatinine 0.9. AST 16, ALT 18, total protein 6.5, albumen 3.9. Total cholesterol 134, triglyceride 108, HDL 42, LDL 72 Hemoglobin A1c 5.9. Blood tests February 2015. Total cholesterol 126, triglycerides 156, HDL 36.6, LDL 58 Sodium 137, potassium 3.8, urea 11, creatinine 0.82 AST 16, AST 17, total protein 6.5, albumin 3.8 White blood cell count 6.7, hemoglobin 15.9, platelet count 250 EKG: October 03, 2016, reviewed personally on October [...] bundle branch block. December 03, 2014, at [facility] reviewed personally showed sinus rhythm, heart rate 6 3. Normal axis. Normal P wave, OR interval. Right bundle branch block. Normal ST-T segment a nd normal QT interval. June 28, 2014 showed sinus rhythm, heart rate 63, normal axis, normal P-wave, OR inte rval, right bundle branch block, normal [...] bilaterally without evidence of arterial insufficiency. OTHERS: December 2014. One month monitor. Sinus [...] 7. COPD. Presented today for follow-up with concerns about another episode of syncope. Description is more suggestive of vasovagal, I am concerned about bradycardia arrhythmias e specially with his abnormal ECG. He was evaluated in the past with one month monitor that wa s not revealing. I recommend longer monitors her with implantable Linq. Informed consent was obtained. No changes of medications today. He will follow-up with Fernanda Bruno in [place] for wound check and he will follow-up with me in 6 months. The following portions of the patient's history were reviewed and updated as appropriate: Allergies, current medications. Family history, past medical history, past social history, past surgical history. Problem list. Kosta Jarquin MD 10/14/2016 documented in this enc ounter Plan of [...] [facility] | | | | | | [id number] | | | | | | | [...] | + +--------+ + + + | MRSA NAAT | Timed | 11/05/2016 | | Results for this | | | | 7:17 AM | | procedure are in the | | | | PDT | | results section. | + +--------+ + + + documented in this encounter Results MRSA NAAT (11/05/2016 7:17 AM PDT) + + | Specimen | + + | | + + + + + | Narrative | Performed At | + + + | SOURCE NARES(NOSE) MRSA | EXTERNAL LAB | | PCR NEGATIVE Testing | | | performed at [facility];[place] [address] | | + + + + +---------+ + + | Performing | Address | City/State/Zipcode | Phone Number | | Organization | | | | + +---------+ + + | EXTERNAL LAB | | | | + +---------+ + + documented in this encounter Visit Diagnoses + + | Diagnosis | + + | Coronary artery disease involving [place] coronary artery of [place] heart without | | angina pectoris | + + | Near syncope Syncope and collapse | + + documented in this encounter
--- OUTSIDE RECORDS SUMMARY | ~2020-02-14 | XMS | Encounter Summary ---
Demographics + + + | Address | [address] | | | [place] [address] | + + + | Home Phone | | + + + | Preferred Language | Unknown | + + + | Marital Status | | + + + | Confucianist Affiliation | Unknown | + + + | Race | Unknown | + + + | Ethnic Group | Unknown | + + + Author + + + | Author | [facility] | | | and [place] | + + + | Organization | [facility] | | [...] Team Providers + +------+ + | Care Photo Colorer Name | Role | Phone | + +------+ + | Deidre Urbano | PCP | | | MD | | | + +------+ + Reason for Visit +--------+--------+ + | Reason | Onset | Comments | | | Date | | +--------+--------+ + | Other | 11/12/ | request for manual transmission | | | 2019 | | +--------+--------+ + Encounter Details +--------+ + + + + | Date | Type | Department | Care Team | Description | +--------+ + + + + | 11/12/ | Telephone | [facility] | Kosta Jarquin MD | Other (request for | | 2019 | | [facility] | [address] | manual transmission) | | | | [address] | [place] [address] | | | | | [place], [place] | [phone] | | | | | [address] | | | | | | [phone] | | | +--------+ + + + [...] + + documented as of this encounter Miscellaneous Notes Telephone Encounter - Kristen Hudson, Sanitation Worker Cleaning Equipment - 11/13/2019 11:47 AM PDTPhone flores balderas to patient and spoke with spouse requesting manual transmission from loop recorder today. She states they will send later this afternoon. documented in this encounter Plan of Treatment [...] [place] | | | | | | [id number] | | | | | | | | +--------+ + + + + | 02/27/ | Procedure | Cardiology | | | 2019 | visit | | | | +--------+ + + + + documented as of this encounter Visit Diagnoses Not on filedocumented in this encounter"
--- OUTSIDE RECORDS SUMMARY | ~2020-02-14 | XMS | Encounter Summary ---
Demographics + + + | Address | [address] | | | [place] [address] | + + + | Home Phone | | + + + | Preferred Language | Unknown | + + + | Marital Status | | + + + | Temple Affiliation | Unknown | + + + [...] Team Providers + +------+ + | Care Form Maker Plaster Name | Role | Phone | + +------+ + | Deidre Urbano | PCP | | | MD | | | + +------+ + Encounter Details +--------+ + + + + | Date | Type | Department | Care Team | Description | +--------+ + + + + | 01/23/ | Orders Only | [facility] | Conversion | | | 2019 | | CONVERSION [address]P [address] | Transaction, | | | | | [address] | Provider Unknown | | | | | [place] | [phone] | | | | | [address] | | | | | | [phone] | | | +--------+ + + + [...] [place] | | | | | | [id number] | | | | | | | | +--------+ + + + + | 02/27/ | Procedure | Cardiology | | | | 2019 | visit | | | | +--------+ + + + + documented as of this encounter Visit Diagnoses Not on filedocumented in this encounter"
--- OUTSIDE RECORDS SUMMARY | ~2020-02-14 | XMS | Encounter Summary ---
Demographics + + + | Address | [address] | | | [place] [address] | + + + | Home Phone | | + + + | Preferred Language | Unknown | + + + | Marital Status | | + + + | Advent Affiliation | Unknown | + + + | Race | Unknown | + + + | Ethnic Group | Unknown | + + + Author + + + | Author | [facility] | | | and [place] | + + + | Organization | [facility] | | | and [place] | + + + | Address | Unknown | + + + | Phone | Unavailable | + + + Support + + +---------+ + | Name | Relationship | Address | Phone | + + +---------+ + | Torri Sanchez | ECON | Unknown | | + + +---------+ + | [facility] | ECON | Unknown | | + + +---------+ + Care Team Providers + +------+ + | Care Drilling Supervisor Name | Role | Phone | + [...] | +--------+ + + + + | 05/17/ | Procedure | [facility] | | History of loop | | 2019 | visit | CARDIOLOGY [place] | | recorder (Primary | | | | [address] | | Dx) | | | | [place] | | | | | | [address] | | | | | | [phone] | | | +--------+ + + + [...] as of this encounter Procedure Notes Kristen Husdon, Community Association Manager - 05/17/2019 8:10 AM PDTAssociated Order(s): DEVICE INT ERROGATION- [...] Ventricular high rate episodes: None. Symptoms: There was one patient activated symptom that occurred on 04/16/19 at 11:20. EGAshly ramirez for review. Additional comments: None. Follow up: The next scheduled interrogation will be in 5 weeks. Impression: 1. No significant bradyarrhythmias were noted. 2. No significant tachyarrhythmias were noted. 3. Patient activated episodes correspond to no significant arrhythmias. Reviewed by: Kristen Hudson, Device Clinic Associated attestation - Kosta Jarquin MD - 05/30/2019 5:28 PM PSTNo evidence of signific ant arrhythmias.documented in this encounter Plan of Treatment +--------+ + + + + | Date | Type | Specialty | Care Team | Description | +--------+ + + + + | 02/25/ | Office | Pulmonology | Андрей Lee MD | | | 2019 | Visit | | [address] | | | | | | [place], [place] | | | | | | [id number] | | | | | | | [...] + + | DEVICE | Routin | 05/17/2019 | History of loop | Results for this | | INTERROGATION- | e | 8:10 AM | recorder | procedure are in the | | REMOTE | | PDT | | results section. | + +--------+ + + + documented in this encounter Results Device Interrogation - Remote (05/17/2019 8:10 AM PDT) + + + | Narrative | Performed At | + + + | Kristen Hudson, Community Association Manager 05/17/2019 11:35 | [facility] | | IMPLANTABLE LOOP RECORDER REMOTE INTERROGATION REPORT Name: Carla | | | Brodie Sanchez Jr. PCP: Deidre Stiles MD : 1945 | | | Primary cardiology provider: Kosta Jarquin Primary | | | electrophysiology provider: None Mode of interrogation: | | | Remote Device: [employer] Battery Status: OK Interrogation | | | [...] Ventricular high rate episodes: None. Symptoms: There was | | | one patient activated symptom that occurred on 04/16/19 at 11:20. | | | EGM available for review. Additional comments: None. Follow | | | up: The next scheduled interrogation will be in 5 weeks. | | | Impression: 1. No significant bradyarrhythmias were noted. 2. No | | | significant tachyarrhythmias were noted. 3. Patient activated | | | episodes correspond to no significant arrhythmias. Reviewed by: | | | Kristen Hudson, Device Clinic | | + + + + +---------+ [...]
--- OUTSIDE RECORDS SUMMARY | ~2020-02-14 | XMS | Encounter Summary ---
Demographics + + + | Address | [address] | | | [place] [address] | + + + | Home Phone | | + + + | Preferred Language | Unknown | + + + | Marital Status | | + + + | Latter-Day Affiliation | Unknown | + + + | Race | Unknown | + + + | Ethnic Group | Unknown | + + + Author + + + | Author | [facility] | | | and [place] | + + + | Organization | [facility] | | | and [place] | + + + | Address | Unknown | + + + | Phone | Unavailable | + + + Support + + +---------+ + | Name | Relationship | Address | Phone | + + +---------+ + | Torri Sanchez | ECON | Unknown | | + + +---------+ + | [facility] | ECON | Unknown | | + + +---------+ + Care Team Providers + +------+ + | Care Machine Pecan Gatherer Name | Role | Phone | + +------+ + | Deidre Urbano | PCP | | | MD | | | + +------+ + Encounter Details +--------+ + + + + | Date | Type | Department | Care Team | Description | +--------+ + + + + | 11/05/ | Orders Only | [facility] | Conversion | | | 2017 | | CONVERSION [address] | Transaction, | | | | | [address] | Provider Unknown | | | | | [place] | [phone] | | | | | [address] | | | | | | [phone] | | | +--------+ + + + [...] [place] | | | | | | [id number] | | | | | | | | +--------+ + + + + | 02/27/ | Procedure | Cardiology | | | | 2019 | visit | | | | +--------+ + + + + documented as of this encounter Visit Diagnoses Not on filedocumented in this encounter"
--- OUTSIDE RECORDS SUMMARY | ~2020-02-14 | XMS | Encounter Summary ---
Demographics + + + | Address | [address] | | | [place] [address] | + + + | Home Phone | | + + + | Preferred Language | Unknown | + + + | Marital Status | | + + + | Religion Affiliation | Unknown | + + + | Race | Unknown | + + + | Ethnic Group | Unknown | + + + Author + + + | Author | [facility] | | | and [place] | + + + | Organization | [facility] | | | and [place] | + + + | Address | Unknown | + + + | Phone | Unavailable | + + + Support + + +---------+ + | Name | Relationship | Address | Phone | + + +---------+ + | Torri Sanchez | ECON | Unknown | | + + +---------+ + | [facility] | ECON | Unknown | | + + +---------+ + Care Team Providers + +------+ + | Care Roof Bolter Helper Name | Role | Phone | [...] | +--------+ + + + + | 03/29/ | Documentati | [facility] | Kristen Hudson, | Other (Loop Alert) | | 2019 | on | CARDIOLOGY [place] | Maintenance Team Member | | | | | [address] | | | | | | [place], [place] | | | | | | [address] | | | | | | [phone] | | | +--------+ + + + [...] of this encounter Progress Notes Kristen Hudson, Maintenance Team Member - 03/29/2019 7:43 AM PDTALERT REPORT Received alert notification for a patient activated symptom. Please see attached report. Medications: ASA 81 mg Will continue to monitor Associated attestation - Kosta Jarquin MD - 03/29/2019 11:14 AM PDTSymptoms correlated wit h PACdocumented in this encounter Plan of Treatment +--------+ + + + + | Date | Type | Specialty | Care Team | Description | +--------+ + + + + | 02/25/ | Office | Pulmonology | Андрей Lee MD | | | 2019 | Visit | | [address] | | | | | | [place] | | | | | | [address] | | | | | | | | +--------+ + + + + | 02/27/ | Procedure | Cardiology | | | | 2020 | visit | | | | +--------+ + + + + documented as of this encounter Visit Diagnoses Not on filedocumented in this encounter"
--- OUTSIDE RECORDS SUMMARY | ~2020-02-14 | XMS | Encounter Summary ---
Demographics + + + | Address | [address] | | | [place] [address] | + + + | Home Phone | | + + + | Preferred Language | Unknown | + + + | Marital Status | | + + + | Episcopal Affiliation | Unknown | + + + [...] Team Providers + +------+ + | Care Angular Developer Name | Role | Phone | + +------+ + PCP | Unavailable | + +------+ + Encounter Details +--------+ + + + + | Date | Type | Department | Care Team | Description | +--------+ + + + + | 03/22/ | Hospital | [facility] | Kian, | Cellulitis of Leg | | 2006 - | Encounter | MEDICAL CENTER | MD Margie [address] | | | | | CLINICAL DECISION | [place], [place] | | | 04/17/ | | [address] [facility] | [address] | | | 2006 | | [place], [place] | [phone] | | | | | [address] | | | | | | [phone] | | | +--------+ + + + [...] | | | | | [place] | | | | | | [id number] | | | | | | | | +--------+ + + + + | 02/27/ | Procedure | Cardiology | | | | 2019 | visit | | | | +--------+ + + + + documented as of this encounter Visit Diagnoses + + | Diagnosis | + + | Cellulitis of leg Cellulitis and abscess of leg, except foot | + + documented in this encounter"
--- OUTSIDE RECORDS SUMMARY | ~2020-02-14 | XMS | Encounter Summary ---
Demographics + + + | Address | [address] | | | [place] [address] | + + + | Home Phone | | + + + | Preferred Language | Unknown | + + + | Marital Status | | + + + | Episcopal Affiliation | Unknown | + + + | Race | Unknown | + + + | Ethnic Group | Unknown | + + + Author + + + | Author | [facility] | | | and [place] | + + + | Organization | [facility] | | | and [place] | + + + | Address | Unknown | + + + | Phone | Unavailable | + + + Support + + +---------+ + | Name | Relationship | Address | Phone | + + +---------+ + | Torri Leslie | ECON | Unknown | | + + +---------+ + | [facility] | ECON | Unknown | | + + +---------+ + Care Team Providers + +------+ + | Care Medical Records Auditor Name | Role | Phone | + +------+ + PCP | Unavailable | + +------+ + Encounter Details +--------+ + + + + | Date | Type | Department | Care Team | Description | +--------+ + + + + | 03// | Hospital | [facility] | Conversion | Dysphagia | | 2011 | Encounter | [facility] | Transaction, | | | | | [address] | Provider Unknown | | | | | [address] [place], [place] | [phone] | | | | | [address] | | | | | | [phone] | | | +--------+ + + + [...] [place] | | | | | | [address] | | | | | | | [...] + | FL ESOPHAGRAM | Routin | 10/07/2011 | | Results for this | | COMPLETE | e | 9:08 AM | | procedure are in the | | | | PDT | | results section. | + +--------+ + + + documented in this encounter Results FL Esophagram Complete (10/07/2011 9:08 AM PDT) + + | Specimen | + + | | + + + + + | Narrative | Performed At | + + + | ELHAM LESLIE JR. XR ESOPHAGRAM 10/07/2011 8:40 AM History: | | | 65 years. Male. Intermittent dysphagia to solid foods. Long | | | history of gastroesophageal reflux disease, controlled with | | | medication. Comparison examination: 09/09/11 Technique: Single | | | and double contrast fluoroscopic technique was utilized to examine | | | the patient in the erect and recumbent positions, with fluoroscopic | | | imaging and recording. Findings: Deglutition demonstrates | | | hypertonicity of the posterior aspect of the cricopharyngeus | | | sphincter, moderate in degree. This is not sufficient to cause | | | blockage of food, however. Contraction of the pharynx is normal. | | | Static images of the hypopharynx are symmetrical and normal. No | | | aspiration visualized. Primary peristalsis of the esophagus is | | | weak and only occasionally visualized. Barium is retained in the | | | esophagus for several minutes while in the recumbent position. | | | Secondary peristalsis is not visualized. The esophagus drains | | | primarily by gravity. There is mild narrowing of the | | | esophagogastric junction on upright and supine views, not sufficient | | | to cause dysphasia. A barium pill passes through this region without | | | hesitation. A small sliding hiatal hernia is noted. The mucosal | | | pattern of the esophagus is normal. A fine serrated pattern of the | | | lower esophagus is due to contraction of the muscularis mucosae, a | | | normal variation. A large amount of gastroesophageal reflux is | | | visualized in the supine position, with poor clearance. | | | Conclusions: 1. Moderately severe dysmotility with very poor | | | primary and secondary peristalsis. 2. Moderately severe | | | gastroesophageal reflux in the recumbent position, with delayed | | | clearance of the esophagus. 3. Small sliding hiatal hernia. 4. | | | Mild, inflammatory stricture of the esophagogastric junction, not | | | sufficient to cause dysphasia. 5. 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 6. No visible | | | esophagitis at present. Otherwise, no significant change as compared | | | with 09/09/11. 7. The patient's intermittent dysphasia is probably | | | due to esophageal dysmotility. | | + + + + --------+ | Procedure Note | + --------+ | Oswaldo Potter Conversion - 03/11/2019 5:49 AM PDT ELHAM LESLIE JR.XR | | ESOPHAGRAM10/07/2011 8:40 AM History: 65 years. Male. Intermittent dysphagia to solid | | foods. Long history of gastroesophageal reflux disease, controlled with medication. | | Comparison examination: 09/09/11 Technique: Single and double contrast fluoroscopic | | technique was utilized to examine the patient in the erect and recumbent positions, with | | fluoroscopic imaging and recording. Findings: Deglutition demonstrates hypertonicity of | | the posterior aspect of the cricopharyngeus sphincter, moderate in degree. This is not | | sufficient to cause blockage of food, however. Contraction of the pharynx is normal. | | Static images of the hypopharynx are symmetrical and normal. No aspiration visualized. | | Primary peristalsis of the esophagus is weak and only occasionally visualized. Barium is | | retained in the esophagus for several minutes while in the recumbent position. | | Secondary peristalsis is not visualized. The esophagus drains primarily by gravity. | | There is mild narrowing of the esophagogastric junction on upright and supine views, not | | sufficient to cause dysphasia. A barium pill passes through this region without | | hesitation. A small sliding hiatal hernia is noted. The mucosal pattern of the esophagus | | is normal. A fine serrated pattern of the lower esophagus is due to contraction of the | | muscularis mucosae, a normal variation. A large amount of gastroesophageal reflux is | | visualized in the supine position, with poor clearance. Conclusions:1. Moderately | | severe dysmotility with very poor primary and secondary peristalsis.2. Moderately | | severe gastroesophageal reflux in the recumbent position, with delayed clearance of the | | esophagus.3. Small sliding hiatal hernia.4. Mild, inflammatory stricture of the | | esophagogastric junction, not sufficient to cause dysphasia.5. Moderate hypertonicity | | of the cricopharyngeus sphincter, probably not significant.6. No visible esophagitis at | | present. Otherwise, no significant change as compared with 09/09/11.7. The patient's | | intermittent dysphasia is probably due to esophageal dysmotility. | |5. Moderate hypertonicity of the cricopharyngeus sphincter, probably not significant. | |6. No visible esophagitis at present. Otherwise, no significant change as compared with . | |7. The patient's intermittent dysphasia is probably due to esophageal dysmotility. | | | | | + --------+ documented in this encounter Visit Diagnoses + + | Diagnosis | + + | Dysphagia Dysphagia, unspecified | + + documented in this encounter"
--- OUTSIDE RECORDS SUMMARY | ~2020-02-14 | XMS | Encounter Summary ---
Demographics + + + | Address | [address] | | | [place] [address] | + + + | Home Phone [...] Team Providers + +------+ + | Care Neurosurgical Physician Assistant Name | Role | Phone | + +------+ + PCP | Unavailable | + +------+ + Encounter Details +--------+ + + + + | Date | Type | Department | Care Team | Description | +--------+ + + + + | 03/17/ | Hospital | [facility] | Scott Villarreal MD | Cellulitis and | | 2006 - | Encounter | [facility] | [address] | Abscess of | | | | CLINICAL DECISION | [place] [address] | Unspecified Site | | 03/21/ | | UNIT [facility] | [phone] | | | 2006 | | [place], [place] | | | | | | [address] | | | | | | [phone] | | | +--------+ + + + [...] | | | | | [place] | | | | | | [id number] | | | | | | | | +--------+ + + + + | 02/27/ | Procedure | Cardiology | | | | 2019 | visit | | | | +--------+ + + + + documented as of this encounter Visit Diagnoses + + | Diagnosis | + + | Cellulitis and abscess of unspecified site | + + documented in this encounter"
--- OUTSIDE RECORDS SUMMARY | ~2020-02-14 | XMS | Encounter Summary ---
Demographics + + + | Address | [address] | | | [place] [address] | + + + | Home Phone | | + + + | Preferred Language | Unknown | + + + | Marital Status | | + + + | Latter-Day Affiliation | Unknown | + + + | Race | Unknown | + + + | Ethnic Group | Unknown | + + + Author + + + | Author | [facility] | | | and [place] | + + + | Organization | [facility] | [...] Team Providers + +------+ + | Care Dry Room Operator Name | Role | Phone | + +------+ + PCP | Unavailable | + +------+ + Encounter Details +--------+ + + + + | Date | Type | Department | Care Team | Description | +--------+ + + + + | 02/13/ | Hospital | [facility] | Usha Garcia | | | 2011 | Encounter | [facility] | [facility] | | | | | LANGUAGE PATHOLOGY | | | | | | [address] | | | | | | [place], [place] | | | | | | [address] | | | | | | [phone] | | | +--------+ + + + [...] [place] | | | | | | [address] | | | | | | | | +--------+ + + + + | 02/27/ | Procedure | Cardiology | | | | 2019 | visit | | | | +--------+ + + + + documented as of this encounter Visit Diagnoses Not on filedocumented in this encounter"
--- OUTSIDE RECORDS SUMMARY | ~2020-02-14 | XMS | Encounter Summary ---
Demographics + + + | Address | [address] | | | [place] [address] | + + + | Home Phone | | + + + | Preferred Language | Unknown | + + + | Marital Status | | + + + | Hinduism Affiliation | Unknown | + + + | Race | Unknown | + + + | Ethnic Group | Unknown | + + + Author + + + | Author | [facility] | | | and [place] | + + + | Organization | [facility] | | | and [place] | + + + | Address | Unknown | + + + | Phone | Unavailable | + + + Support + + +---------+ + | Name | Relationship | Address | Phone | + + +---------+ + | Torri Sanchez | ECON | Unknown | | + + +---------+ + | [facility] | ECON | Unknown | | + + +---------+ + Care Team Providers + +------+ + | Care Motor Tester Name | Role | Phone | + +------+ + PCP | Unavailable | + +------+ + Encounter Details +--------+ + + + + | Date | Type | Department | Care Team | Description | +--------+ + + + + | 07/06/ | Hospital | [facility] | Conversion | Pain | | 2017 | Encounter | CONVERSION [address] | Transaction, | | | | | [address] | Provider Unknown | | | | | [place], [place] | [phone] | | | | | [address] | | | | | | [phone] | | | +--------+ + + + [...] [place] | | | | | | [address] | | | | | | | [...] | + +--------+ + + + | CT CHEST WO CONTRAST | Routin | 07/02/2017 | | Results for this | | | e | 12:20 PM | | procedure are in the | | | | PST | | results section. | + +--------+ + + + documented in this encounter Results CT Chest wo Contrast (07/02/2017 12:20 PM PST) + + | Specimen | + + | | + + + + + | Narrative | Performed At | + + + | This is a non-reportable procedure without a radiologist report and | | | is used for image storage only | | + + + + + | Procedure Note | + + | Oswaldo Potter Kwabena - 03/02/2019 2:04 AM PDT This is a non-reportable procedure | | without a radiologist report and isused for image storage only | + + documented in this encounter Visit Diagnoses + + | Diagnosis | + + | Pain Generalized pain | + + documented in this encounter"
--- OUTSIDE RECORDS SUMMARY | ~2020-02-14 | XMS | Encounter Summary ---
Demographics + + + | Address | [address] | | | [place] [address] | + + + | Home Phone | | + + + | Preferred Language | Unknown | + + + | Marital Status | | + + + | Druze Affiliation | Unknown | + + + | Race | Unknown | + + + | Ethnic Group | Unknown | + + + Author + + + | Author | [facility] | | | and [place] | + + + | Organization | [facility] | | | and [place] | + + + | Address | Unknown | + + + | Phone | Unavailable | + + + Support + + +---------+ + | Name | Relationship | Address | Phone | + + +---------+ + | Torri Sanchez | ECON | Unknown | | + + +---------+ + | [facility] | ECON | Unknown | | + + +---------+ + Care Team Providers + +------+ + | Care Boating Safety Officer Name | Role | Phone | + +------+ + PCP | Unavailable | + +------+ + Encounter Details +--------+ + + + + | Date | Type | Department | Care Team | Description | +--------+ + + + + | 08/30/ | Emergency | [facility] | Conversion | [facility] | | 2002 | | [facility]ICAL CENTER | Transaction, | | | | | EMERGENCY CENTER | Provider Unknown | | | | | [address] | | | | | | [place], [place] | (Fax) | | | | | [address] | | | | | | [phone] | | | +--------+ + + + [...] | | | | | [place] | | | | | | [address] | | | | | | | | +--------+ + + + + | 02/27/ | Procedure | Cardiology | | | | 2019 | visit | | | | +--------+ + + + + documented as of this encounter Visit Diagnoses + + | Diagnosis | + + | Backache, unspecified | + + documented in this encounter"
[~2020-02-14 10:56] MED LIST: ASPIRIN EC81 MG PO; CRESTOR40 MG PO; FUROSEMIDE40 MG PO; ISOSORBIDE MONO30 MG PO; LISINOPRIL20 MG PO; OMEPRAZOLE20 MG PO; POTASSIUM CHLO20 ME1 PO; SERTRALINE HCL25 MG PO; SPIRIVA18 MCG INH; SYMBICORT 16010.2 GM INH
[2020-02-14] MEDS ORDERED: VENTOLIN HFA18 GM INH (12:22)
[2020-02-14] MEDS ORDERED: PROSCAR5 MG PO (12:22)
[2020-02-14] MEDS ORDERED: SPIRONOLACTONE25 MG PO (12:26)
[2020-02-14] MEDS ORDERED: KEFLEX500 MG PO (14:20)
--- NOTE | 2020-02-15 21:22 | EKG ---
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
== END 2020-02-14 14:46 | disposition home or self-care (01) ==
LOC: ED 10:56
DX: R55 Syncope and collapse (principal); E86.0 Dehydration; N39.0 Urinary tract infection, site not specified; I10 Essential (primary) hypertension; J44.9 Chronic obstructive pulmonary disease, unspecified; F17.200 Nicotine dependence, unspecified, uncomplicated; Z23 Encounter for immunization; Z88.8 Allergy status to other drugs, medicaments and biological substances; Z91.013 Allergy to seafood; Z79.899 Other long term (current) drug therapy; Z79.82 Long term (current) use of aspirin
CPT/HCPCS: 71045; 80053; 81001; 83605; 83735; 84484; 85025; 90471; 90715; 93005; 93010; 96360; 99284-25; A9270; J7030

== ENCOUNTER 2021-05-29 22:06 | Emergency (ER) | payer MEDICARE ==
[~2021-05-29] VITALS: Ht 180.3 cm; Wt 103.0 kg
[~2021-05-29 22:06] MED LIST changes: +KEFLEX500 MG PO; +PROSCAR5 MG PO; +SPIRONOLACTONE25 MG PO; +VENTOLIN HFA18 GM INH
== END 2021-05-30 01:22 | disposition home or self-care (01) ==
LOC: ED 22:06
DX: T78.3XXA Angioneurotic edema, initial encounter (principal); T46.4X5A Adverse effect of angiotensin-converting-enzyme inhibitors, initial encounter; J44.9 Chronic obstructive pulmonary disease, unspecified; F43.10 Post-traumatic stress disorder, unspecified; F17.200 Nicotine dependence, unspecified, uncomplicated; Z88.8 Allergy status to other drugs, medicaments and biological substances; Z91.030 Bee allergy status; Z79.899 Other long term (current) drug therapy; Z79.82 Long term (current) use of aspirin
CPT/HCPCS: 96374; 96375; 99284-25; J1200; J2930

== ENCOUNTER 2024-04-18 20:42 | Inpatient (IN) | payer OTHER, MEDICARE ==
[~2024-04-18] VITALS: Ht 180.3 cm; Wt 104.3 kg
[2024-04-18] MEDS ORDERED: SILODOSIN8 MG PO (20:55)
[2024-04-18] MEDS ORDERED: MELATONIN 3 MG TAB PO PRN (21:00)
[2024-04-18 21:01] LABS: BASOPHILS 1.1 % (0-2); EOSINOPHILS 0.1 % (0-6); HEMATOCRIT 48.8 % (35.0-50.0); HEMOGLOBIN 16.5 g/dL (12.0-18.0); LYMPHOCYTES 1.3 % (24-44); MCH 30.8 (27-36); MCHC 33.8 g/dl (30-36); MCV 91.1 fl (81-99); MONOCYTES 2.5 % (0-12); PLATELET COUNT 293 K/uL (140-440); RBC 5.35 M/ul (4.3-5.7); RDW 14.9 (10.5-15.0)
[2024-04-18] MEDS ORDERED: FAMOTIDINE 20 MG/ 2 ML VIAL IV ONE (21:15)
[2024-04-18] MEDS ORDERED: ondansetron HCL 4 MG/2 ML VIAL IV ONE ×2 (21:15→21:30)
[2024-04-18] MEDS ORDERED: CEFTRIAXONE/SODIUM CHLORIDE 2 GM/100 ML PIGGYBACK IV ONE (21:15)
[2024-04-18 21:27] LABS: LACTIC ACID, BLOOD 2.5 mmol/L (0.4-2.0)
[2024-04-18 21:31] LABS: ALBUMIN/GLOBULIN RATIO 0.77 (1.1-2.4); ANION GAP 13.9 (7-21); BILIRUBIN, TOTAL 0.7 ng/dL (0.2-1.0); BUN/CREATININE RATIO 9.65 (6.0-28.6); CALCIUM 8.9 mg/dL (8.5-10.1); CREATININE, SERUM 1.45 mg/dL (0.70-1.30); POTASSIUM 2.9 mmol/L (3.5-5.1); PROTEIN, TOTAL 6.9 g/dL (6.4-8.2)
[2024-04-18] MEDS ORDERED: POTASSIUM CHLORIDE 10 MEQ TABCR PO ONE (21:45)
[2024-04-18] MEDS ORDERED: methylPREDNISolone SOD SUCC 125 MG/2 ML VIAL IV ONE (21:45)
[2024-04-18] MEDS ORDERED: AZITHROMYCIN/DEXTROSE 500 MG/250 ML BAG IV ONE (21:45)
[2024-04-18] MEDS ORDERED: POTASSIUM CHLORIDE 10 MEQ/100 ML BAG IV SCH (21:45)
[2024-04-18] MEDS ORDERED: ondansetron HCL 4 MG/2 ML VIAL IV PRN (22:00)
[2024-04-18] MEDS ORDERED: ACETAMINOPHEN 500 MG TAB PO PRN (22:00)
[2024-04-18 22:12] LABS: INFLUENZA B NAA NEGATIVE (NEGATIVE); RESPIRATORY SYNCYTIAL VIR NAA NEGATIVE (NEGATIVE)
[2024-04-18] MEDS ORDERED: LACTATED RINGER'S 1,000 ML IV SCH (22:15)
[2024-04-18 22:24] LABS: BILIRUBIN, URINE POSITIVE (negative); BLOOD/HGB, URINE LARGE (Negative); KETONE, URINE TRACE (Negative); LEUK ESTERASE, URINE MODERATE (negative); NITRITE, URINE NEGATIVE (negative)
[2024-04-18 22:25] LABS: EPITHELIAL CELLS, URINE SQUAMOUS 1+ /lpf (0-1+)
[2024-04-18 22:26] LABS: BACTERIA, URINE 4+ /hpf (negative); CASTS, URINE NONE SEEN \\lpf; COLLECTION TYPE, URINE CLEAN CATCH; CRYSTALS, URINE NONE SEEN (0-1+); RED BLOOD CELLS, URINE >50 /hpf (0-5); REFLEX CULTURE, URINE Yes (No); WHITE BLOOD CELLS, URINE 21-40 /HPF (0-5)
[2024-04-18 23:28] VITALS: BP 103/88
--- NOTE | 2024-04-18 23:53 | NUR ---
PATIENT ARRIVED TO THE CCU ROOM 128 VIA STRETCHER WITH 2 ED RNS. PATIENT REPORT RECIEVED. PATIENT MOVED TO BED WITH 4 RN SLIDE TRANSFER. PATIENT ALERT AND ANSWERS QUESTIONS WITH NO ISSUES. PATIENT IS FORGETFUL WHEN STAFF ARE ASKING QUESTIONS. PER ED DOCUMENTATION PATIENT HAS DENTURES. WHEN CCU STAFF CALLED THEY REPORTED HE SAID HE HAD THEM IN BUT THEY NEVER PHYSICALLY CHECKED. UPON ARRIVAL TO CCU PATIENT HAS NO DENTURES IN HIS MOUTH OR BELONGINGS. WILL CHECK WITH PATIENTS IN THE AM IF THEY ARE STILL AT HOME. PATIENT NOTED TO HAVE REDDEND BLANCHABLE COCCYX AND SKIN TEAR TO RIGHT ARM. THIS RN AT THE BEDSIDE TO ADMIT PATIENT. CALL LIGHT IN REACH.
[2024-04-19] VITALS (8 sets, daily range): BP systolic 94–135; BP diastolic 61–74
--- NOTE | 2024-04-19 00:30 | NUR ---
RN IN TO CHANGE IV POTASSIUM. PATIENT AWAKENS WITH STAFF ENTERING THE ROOM. PATIENT DENIES ANY NEEDS AT THIS TIME. CALL LIGHT IN REACH.
--- NOTE | 2024-04-19 02:42 | NUR ---
2 RNS IN TO CHECK IF PATIENT NEEDED CHANGED AND REPOSITIONED. BLADDER SCAN DONE AT THIS TIME FOR APPROX 80MLS. PER ER STAFF PATIENT HAD VERY WET ATTENDS IN ED AND STRAIGHT CATHED. PATIENT ATTENDS WERE DRY. REPOSITIONED TO LEFT SIDE WITH PILLOW SUPPORT. PATIENT SPO2 95% AND OXYGEN DECREASED TO 11L VIA OXYMASK. PATIENT DENIES ANY OTHER NEEDS AT THIS TIME.
--- NOTE | 2024-04-19 04:30 | NUR ---
STAFF IN TO REPOSITION PATIENT WITH PILLOW SUPPORT. PATIENTS SPO2 INCREASED TO 97% WHILE ON 11L OXYMASK AND RESTING ON RIGHT SIDE. TITRATED OXYGEN DOWN SLOWLY OVER A 30 MINUTE WINDOW. PATIENT NOW ON 6L OXYMASK. PATIENT DENIES NEED TO VOID AND ATTENDS DRY. WILL RECHECK BLADDER SCAN IF NO VOID BY 0630.
[2024-04-19 05:50] LABS: ANION GAP 12.3 (7-21); BUN/CREATININE RATIO 12.58 (6.0-28.6); CALCIUM 8.6 mg/dL (8.5-10.1); CREATININE, SERUM 1.43 mg/dL (0.70-1.30); MAGNESIUM 1.4 mg/dL (1.8-2.4); POTASSIUM 4.3 mmol/L (3.5-5.1)
[2024-04-19 06:00] LABS: HEMATOCRIT 42.1 % (35.0-50.0); HEMOGLOBIN 14.3 g/dL (12.0-18.0); LYMPHOCYTES 2.3 % (24-44); MCH 30.6 (27-36); MONOCYTES 1.9 % (0-12); NEUTROPHILS 95.8 % (39-80); PLATELET COUNT 259 K/uL (140-440); RBC 4.68 M/ul (4.3-5.7); RDW 15.2 (10.5-15.0)
--- NOTE | 2024-04-19 06:50 | NUR ---
PATIENT REPOSITIONED AND BLADDER SCAN DONE. BS SHOWS 210MLS APPROX. PATIENT REPORTS HE DOES NOT NEED TO VOID YET AT THIS TIME.
--- NOTE | 2024-04-19 07:30 | NUR ---
REPORT RECEIVED. PATIENT IN BED RESTING. REPOSITIONED. O2 OXYMASK [address] PATIENT DENIES SHORTNESS OF BREATH. IVF INFUSING.
--- NOTE | 2024-04-19 08:05 | NUR ---
ASSESSMENT DONE. DENIES PAIN. OXYMASK AT [address] DENIES SHORTNESS OF BREATH. LUNGS ARE WITH DIMINISHED BREATH SOUNDS THROUGHOUT. HAS OCC COUGH. TALKED WITH PATIENT ABOUT POC FOR THE DAY, INDICATES UNDERSTANDING. ATTEMPTED TO USE URINAL TO VOID, UNABLE AT TO VOID. SITTING UP IN BED FOR BREAKFAST.
[2024-04-19] MEDS ORDERED: ENOXAPARIN SODIUM 40 MG/0.4 ML SYR SUB-Q SCH (09:00)
--- NOTE | 2024-04-19 10:00 | NUR ---
INC OF URINE. LINENS CHANGED. ATTENDS CHANGED. DR. HERNÁNDEZ HAS BEEN HERE TO SEE PATIENT. ORDERS RECEIVED.
--- NOTE | 2024-04-19 10:10 | NUR ---
VISITED DURING SPIRITUAL CARE ROUNDS. PT SUPPORTED BY SPOUSE IN ROOM. BOTH DENIED IMMEDIATE NEEDS. VICE PRESIDENT TALENT MANAGEMENT PROVIDED SUPPORTIVE PRESENCE, HOSPITALITY, PRAYER. PT AND SPOUSE EXPRESSED GRATITUDE.
[2024-04-19] MEDS ORDERED: CEFTRIAXONE/SODIUM CHLORIDE 2 GM/100 ML PIGGYBACK IV SCH (10:44)
[2024-04-19] MEDS ORDERED: AZITHROMYCIN 250 MG TAB PO SCH (10:45)
[2024-04-19] MEDS ORDERED: predniSONE 20 MG TAB PO SCH (10:46)
--- NOTE | 2024-04-19 10:53 | NUR ---
PATIENT ALERT AND ORIENTED IN BED. SPOUSE AT BEDSIDE. SPOUSE PRIMARILY ANSWERS QUESTIONS. DEMOGRAPHICS VERIFIED. PATIENT LIVES IN HOUSE, HAS A RAMP TO GET INSIDE, LIVES WITH . STATES HE HAS A WALKER, CANE, HOME OXYGEN THROUGH [place] AND MOTORIZED SCOOTER/CHAIR. STATES HE DOES NOT DRIVE, PROVIDES TRANSPORTATION. DENY FINANCIAL HARDSHIP. PATIENT AND SPOUSE BOTH DENY CM NEEDS AT THIS TIME. HE PLANS TO RETURN HOME WHEN STABLE. INSTRUCTED TO NOTIFY STAFF WITH ANY CHANGES, VERBALIZE UNDERSTANDING.
[2024-04-19] MEDS ORDERED: BUDESONIDE 0.5 MG/2 ML VIAL INH SCH ×2 (11:28→20:00)
--- NOTE | 2024-04-19 11:30 | NUR ---
UP TO COMMODE TO HAVE X-LARGE FORMED BROWN STOOL. DARON STEADY USED FOR TRANSFER, TOLERATED WELL. DOES HAVE DIFFICULTY MOVING. DENIES INCREASED SHORTNESS OF BREATH WITH EXERTION. O2 SAT ON 4 L NC 88.
[2024-04-19] MEDS ORDERED: PHARMACY RENAL DOSE ADJUSTMENT 1 DOSE MISC PO SCH (12:00)
[2024-04-19] MEDS ORDERED: ALBUTEROL/IPRATROPIUM 3 ML NEB INH SCH (12:00)
--- NOTE | 2024-04-19 14:25 | NUR ---
UR CLINICAL REVIEW: [facility] [place] [facility] [place] P[place] [facility] INPT 04/18/24 @ 2156 ORDER MATCHES REG AUTH PENDING, CLINICALS SENT VIA RIGHTFAX PLAN TO DC TO HOME WHEN STABLE. 04/21/24
--- NOTE | 2024-04-19 15:16 | NUR ---
medications [facility] with [facility] and
[2024-04-19] MEDS ORDERED: NICOTINE 21 MG/24 HR 1 EA TDSY TD SCH (16:00)
[2024-04-19] MEDS ORDERED: IPRATROPIUM BROMIDE 2.5 ML VIAL INH SCH (16:00)
[2024-04-19] MEDS ORDERED: MAGNESIUM SULFATE 2 GM/50 ML BAG IV ONE (16:15)
--- NOTE | 2024-04-19 16:30 | NUR ---
ASSESSMENT DONE. INC OF LARGE AMOUNT OF URINE. ATTENDS AND BED LINEN CHANGED. MOVES SELF FROM SIDE TO SIDE WELL. OCC HARSH COUGH. O2 AT 5 L NC TO KEEP SATS 88-90. ON TELE #7 WITH OXIMETER ON.
--- NOTE | 2024-04-19 17:45 | EKG ---
[facility] [address] [facility] [address] [facility] [place] [address] Signed Sinus tachycardia Right bundle branch block T wave abnormality, consider lateral ischemia Abnormal ECG When compared with ECG of 07-NOV-2023 12:55, Vent. rate has increased BY 51 BPM Questionable change in QRS axis T wave inversion now evident in Anterior leads Confirmed by Tammy Hernández MD ([id number]) on 04/19/2024 5:45:30 PM Electronically Signed By: TAMMY HERNÁNDEZ DO 04/19/24 1745 PATIENT NAME: ELHAM LESLIE Electrocardiogram DATE OF : 45 PHYSICIAN: TAMMY HERNÁNDEZ DO REPORT #: [id number] REPORT IS CONFIDENTIAL AND NOT TO BE RELEASED WITHOUT AUTHORIZATION
--- NOTE | 2024-04-19 18:10 | NUR ---
TOOK DINNER WELL. DENIES NAUSEA. STATES HE IS FEELING BETTER.
[2024-04-19] MEDS ORDERED: CALCIUM CARBONATE 500 MG CHEW PO SCH (22:45)
--- NOTE | 2024-04-19 22:45 | NUR ---
Received report from ZABRINA Fritz. Pt transferred to room 114 via bed w/ all belongings. Call light within reach.
--- NOTE | 2024-04-19 23:40 | NUR ---
Pt resting in bed. Call light within reach. Denies pain. VSS. Currently on 5L O2, N/C. O2 sats 90-91%. Some SOB, HOFFMANN reported. LS w/ crackles, exp wheezes. HRR, tele in place. 2+ edema to BLE, BLE elevated on pillows. BTA. LBM 04/19. Pt has disposible brief in place for inc of B&B. LFA SL, RFA IV infusing LR @ 75mls/hr. Call light within reach.
[2024-04-20] VITALS (8 sets, daily range): BP systolic 122–137; BP diastolic 60–81
--- NOTE | 2024-04-20 00:25 | NUR ---
Pt requested lights out and TV off. Call light within reach.
--- NOTE | 2024-04-20 01:25 | NUR ---
Pt called regarding urinal use-pt missed urinal and wet bed. Bed linens changed and abbie care provided. Male external cath applied for urgency and inc. Pt reports heartburn, will admin PRN Tums.
[2024-04-20] MEDS ORDERED: MAGNESIUM HYDROXIDE/AL HYDROX 30 ML CUP PO PRN (01:30)
--- NOTE | 2024-04-20 03:10 | NUR ---
Pt admitted from CCU 04/19. Hypoxia r/t CHF vs PNA vs COPD. 5L O2 NC. SOB & HOFFMANN. External male cath applied r/t difficulty using urinal. Pt reportedly self straight cath's at home. IVF @ 75mls/hr RFA. 2+ edema to BLE. Bria crystal used for transfers in CCU, has not been OOB overnight.
--- NOTE | 2024-04-20 04:31 | NUR ---
IN RM TO DO pt VS. pt STATED HE FELT SOAKED. PURE WICK CHECKED AND THIS RN NOTICED HIS PURE WICK HAD BEEN LEAKING AND HIS CHUCKS WAS WET. THIS RN AND A SECOND RN CHANGED THE pts PURE WICK AND CHANGED HIS CHUCKS WELL. pt DENIES ANY OTHER NEEDS AT THIS TIME. CALL LIGHT WITHIN REACH.
[2024-04-20 05:27] LABS: HEMATOCRIT 42.2 % (35.0-50.0); HEMOGLOBIN 14.2 g/dL (12.0-18.0); MCH 30.4 (27-36); MCHC 33.5 g/dl (30-36); MCV 90.8 fl (81-99); PLATELET COUNT 250 K/uL (140-440); RBC 4.65 M/ul (4.3-5.7); RDW 14.8 (10.5-15.0)
[2024-04-20 05:39] LABS: BANDS, MANUAL DIFF 2; LYMPHOCYTES, MANUAL DIFF 6; MONOCYTES, MANUAL DIFF 6; NEUTROPHILS, MANUAL DIFF 86
[2024-04-20 05:42] LABS: BUN/CREATININE RATIO 21.09 (6.0-28.6); CALCIUM 9.6 mg/dL (8.5-10.1); CREATININE, SERUM 1.28 mg/dL (0.70-1.30); MAGNESIUM 2.2 mg/dL (1.8-2.4)
--- NOTE | 2024-04-20 05:45 | NUR ---
Pt desats to 84%. Pt noted to be sleeping soundly on left side. Pt repositioned to Supine, HOB >45 degrees. Enc depp breathe and cough, noted w/ hacking productive cough. O2 increased to 6L/min. O2 sats 88-89%.
--- NOTE | 2024-04-20 06:27 | NUR ---
Pt desatting again, down to 80%. O2 off when RN entered room, pt was wiping/blowing nose. O2 replaced. Patient able to deep breathe and cough several times. Tele mon sensor changed over to CPOX. O2 sats 87% on 5L O2. HOB elevated.
--- NOTE | 2024-04-20 07:03 | NUR ---
Pt report received from ZABRINA Brooke. Pt is resting, supine with HOB elevated, in bed, eyes closed, breathing regular, even, and non-labored. CPOX at 87% as pt is slightly leaned over to his left side. Pt easily awakened to voice. Second pillow placed beneath pt's left shoulder to prop him up, CPOX increased slowly after that. White board updated. Pt denies needs at this time. Bedside table in reach, call light in reach.
[2024-04-20] MEDS ORDERED: ALBUTEROL SULFATE 0.083% 3 ML VIAL INH PRN (07:15)
[2024-04-20] MEDS ORDERED: CALCIUM CARBONATE 500 MG CHEW PO SCH (08:00)
[2024-04-20] MEDS ORDERED: FUROSEMIDE 40 MG/4 ML VIAL IV ONE (08:15)
--- NOTE | 2024-04-20 09:13 | NUR ---
COPD EXACERBATION TRIAL OF Q4 DUONEBS FOR 24 HOURS PER RESPIRATORY PROTOCOL.
--- NOTE | 2024-04-20 11:07 | NUR ---
VISITED DURING SPIRITUAL CARE ROUNDS. PT APPEARED TO BE SLEEPING. DID NOT DISTURB. PROVIDED PRAYER.
[2024-04-20] MEDS ORDERED: ALBUTEROL/IPRATROPIUM 3 ML NEB INH SCH (12:00)
--- NOTE | 2024-04-20 12:55 | NUR ---
PT TOOK A SHOWER WITH VICE PRESIDENT OF FINANCE HELP. VICE PRESIDENT OF FINANCE HELPED WITH HIS BACK AND LEGS. PT GOT HIS FACE, HEAD,ARMS, AND STOMACH. NURSE CAME IN TO HELP AND GOT HIM BACK TO HIS CHAIR WITH 2 PERSON HELP. AND GOT HIM A WARM BLANKET. PT DIDNT NEED ANYTHING ELSE AND CALL LIGHT IS WITHIN REACH.
[2024-04-20] MEDS ORDERED: FUROSEMIDE 40 MG/4 ML VIAL IV SCH (13:00)
--- NOTE | 2024-04-20 14:24 | NUR ---
Imaging here to transport pt for CT via wheelchair.
--- NOTE | 2024-04-20 14:56 | NUR ---
Pt back from [place]. Assisted process maintenance technician with assisting pt back to bed (he has been up in his chair since after his shower). Pt desires to take a nap. External catheter bag leaking as pt stands to transfer, despite the plug being in the end of the bag. Pt was changed into a clean gown, and assisted into a position of comfort in bed. Tele lead stickers changed out as needed and pulse ox reconnected. Pt sat'ing at 93% on 10 lpm via simple mask. BLE elevated in bed and on two pillows, pitting edema present. Male external catheter reconnected to suction. Side rails up x4, call light and bedside table in reach.
--- NOTE | 2024-04-20 18:01 | NUR ---
PT EATING DINNER UPRIGHT IN BED, WATCHING TV. CURRENTLY PT WAS ON 11L PER NC, SATS 92% WHILE EATING, DECREASED O2 TO 9L NC AT THIS TIME DUE TO HIGH OXYGEN NEEDS, WILL CONTINUE TO MONITOR AND TITRATE DOWN ACCORDINGLY. PT WAS ABLE TO MAINTAIN O2 AT 92% DURING MY MEDICATION PASS AND INTERACTIONS ALL WHILE EATING. PT DENIES PAIN AT THIS TIME. PT DENIES INCREASED SOB AT THIS TIME, IN COMPARISON TO HOW HE HAS BEEN FEELING THROUGHOUT THE DAY. PT WAS WEANED DOWN TO 7L NC BY THE END OF DISCUSSION/INTERACTION. PT TOLERATING AND SATS REMAIN AT 91-92%. PT DENIES ANY FURTHER NEEDS AT THIS TIME, ALL PT CARE NEEDS MET. CALL LIGHT WITHIN REACH.
--- NOTE | 2024-04-20 19:33 | NUR ---
Report received from ZABRINA Grover. Pt resting in bed, visiting w/ family. White board updated. Denies needs at this time. Call light within reach.
--- NOTE | 2024-04-20 20:30 | NUR ---
Pt resting comfortably in bed, HOB elevated. Denies pain. VSS. LS dim t/o w/ exp wheezing. Currently on 7L O2 via NC, O2 sats 88-90%. Pt doing well with deep breathe and cough exercises. SOB and HOFFMANN reported. Specimen cup at bedside awaiting sputum sample. Neb txs administered per EMAR, pt tolerated well. HRR. 2+ edema to BLE, elevated on pillows. BTA, LBM 10/2. Pt has extenal make cath in place for dribbling, clear yellow urine noted, will collect urine sample per order. LW & RFA SL. ST to right elbow, previous drsg loose a/ dried drng. Bandaid applied. Call light within reach.
--- NOTE | 2024-04-20 21:36 | NUR ---
Pt resting comfortably in bed. Denies pain. O2 sats 89% on 7L. Solu-medrol administered per EMAR. Nicotine patch removed. Call light within reach.
[2024-04-20] MEDS ORDERED: HYDROCORTISONE SOD SUCCINATE 100 MG/2 ML VIAL IV SCH (22:00)
--- NOTE | 2024-04-20 22:00 | NUR ---
FAMILY AT RN STATION AND REPORTS THAT pt HAS AN APPOINTMENT WITH [facility] ON Apr IN [facility] AND SUPPOSED TO HAVE "FASTING BLOOD WORK" DONE FOR APPOINTMENT. FAMILY EDUCATED THAT STAFF ARE UNABLE TO DETERMINE WHEN pt WILL BE DISCHARGED, FAMILY ASKING IF LAB WORK CAN BE DONE HERE FOR APPOINTMENT AND THEN FAXED TO [facility] RN VICTORINA/FABIAN ALONG WITH THIS RN PRESENT FOR CONVERSATION. FAMILY EDUCATED CONCERNS CAN BE PASSED TO UPCOMING DAYSHIFT RN AND WITH CHARGE REPORT.
--- NOTE | 2024-04-20 23:00 | NUR ---
THIS RN SPOKE WITH REGARDING THE ORDERED CSF CRYPTOCOCCUS ANTIGEN TEST. GAVE VERBAL ORDER TO CHANGE THE TEST TO CRYPTOCOCCUS ANTIGEN BY BLOOD. CHANELL IN LAB TO UPDATE ORDER.
--- NOTE | 2024-04-20 23:19 | NUR ---
Pt awake, denies needs. O2 sats 90% on 7L NC. Call light within reach.
--- NOTE | 2024-04-20 23:59 | NUR ---
Pt awake still. Neb tx administered. Denies needs. Call light within reach.
[2024-04-21] VITALS (12 sets, daily range): BP systolic 118–149; BP diastolic 50–86
--- NOTE | 2024-04-21 01:10 | NUR ---
UNABLE TO VISUALIZE UPDATED CRYPTOCOCCUS ANTIGEN ORDER UNDER LAB ORDERS. THIS RN AND PRIMARY RN VICTORINA CALLED TITO IN LAB. PER TITO,ORDER UPDATED AND WAS ORDERED MISC. AND VERIFIED NEW ORDER IS IN AND WILL BE COLLECTED IN THE AM WITH OTHER AM LABS IT IS A SEND OUT AND WILL BE SENT OUT IN THE AFTERNOON. TEST FOR IN HOUSE ID# [id number] AND SEND OUT #[id number] PER [facility]O IN LAB. PRIMARY ZABRINA PRAJAPATI/CRYSTAL AWARE.
--- NOTE | 2024-04-21 01:10 | NUR ---
UNABLE TO VISUALIZE UPDATED CRYPTOCOCCUS ANTIGEN ORDER UNDER LAB ORDERS. THIS RN AND PRIMARY RN VICTORINA CALLED TITO IN LAB. PER TITO,ORDER NOW UPDATED AND WAS ORDERED MISC. AND VERIFIED NEW ORDER IS IN AND WILL BE COLLECTED IN THE AM WITH OTHER AM LABS IT IS A SEND OUT AND WILL BE SENT OUT IN THE AFTERNOON. TEST FOR IN HOUSE ID# [id number] AND SEND OUT #[id number] PER [facility] IN LAB. PRIMARY ZABRINA PRAJAPATI/CRYSTAL AWARE.
--- NOTE | 2024-04-21 01:10 | NUR ---
Pt sleeping soundly. Appears comfortable. Breathing even and unlabored.
--- NOTE | 2024-04-21 01:26 | NUR ---
CHEESEMAKER OBTAINED VITALS AND OUTPUT. NO NEW INTAKE AT THIS TIME. PT STATES NO NEEDS, CALL LIGHT WITHIN REACH.
--- NOTE | 2024-04-21 04:00 | NUR ---
Pt sleeping soundly. Appears comfortable. O2 sats 88-90% on 7L O2. Call light within reach.
[2024-04-21 05:33] LABS: BASOPHILS 0.4 % (0-2); EOSINOPHILS 0.2 % (0-6); HEMATOCRIT 43.1 % (35.0-50.0); LYMPHOCYTES 4.1 % (24-44); MCH 31.4 (27-36); MCHC 34.7 g/dl (30-36); MCV 90.3 fl (81-99); NEUTROPHILS 91.3 % (39-80); PLATELET COUNT 268 K/uL (140-440); RBC 4.78 M/ul (4.3-5.7); RDW 14.8 (10.5-15.0)
[2024-04-21 05:44] LABS: ANION GAP 11.4 (7-21); BUN/CREATININE RATIO 20.97 (6.0-28.6); CALCIUM 9.9 mg/dL (8.5-10.1); CREATININE, SERUM 1.43 mg/dL (0.70-1.30); MAGNESIUM 2.4 mg/dL (1.8-2.4); POTASSIUM 4.4 mmol/L (3.5-5.1)
--- NOTE | 2024-04-21 06:13 | NUR ---
LINE DRIVER OBTAINED VITALS AND OUTPUT. PUREWICK CANNISTER EMPTIED. NO NEW INTAKE AT THIS TIME. PT STATES NO NEEDS AT THIS TIME. CALL LIGHT WITHIN REACH.
--- NOTE | 2024-04-21 06:25 | NUR ---
Pt awake for cares. Paloma care provided, new disposable brief in place w/ external male cath. Pt O2 sats 90% on 7L O2. Pt reports feeling better this morning. Repositioned for comfort. Call light within reach.
--- NOTE | 2024-04-21 07:05 | NUR ---
REPORT RECIEVED FROM ZABRINA PERALTA AND ZABRINA PRAJAPATI. PT RESTING IN BED SEMI-FOWLERS. EYES CLOSED, RR EVEN AND UNLABORED. PT ON 7L NC WITH O2 SATS BETWEEN 91-92%. PT RESTING ON LEFT SIDE. NO NEEDS IDENTIFIED AT THIS TIME. CALL LIGHT IN REACH.
--- NOTE | 2024-04-21 08:55 | NUR ---
PATIENT IN BED AT THIS TIME. MELTING FURNACE SKIMMER PROVIDED PATIENT WITH CUP OF COFFEE. CALL LIGHT WITHIN REACH, NO FURTHER NEEDS AT THIS TIME.
--- NOTE | 2024-04-21 09:06 | NUR ---
IN TO ADMINISTER MEDICATIONS, SEE MAR. PT SITTING UP IN BED AND RESPONDS WHEN ADDRESSED. PT DENIES PAIN AT THIS TIME. PT DENES ANY NUMBNESS OR TINGLING AT THIS TIME. PT DENIES SOB AT THIS TIME. DR. HERNÁNDEZ IN ROOM AND TALKING WITH PT. PER DR. HERNÁNDEZ "STOP THE IV LASIX." WHILE THIS RN IS ADMINISTERING LASIX IV. PT NOTED TO HAVE RECIEVED 30MG OUT OF THE 40MG. DR. HERNÁNDEZ AWARE. VERBAL FROM DR. HERNÁNDEZ "DISCONTINUE THE IV LASIX." VERIFIED WITH READBACK. IV LASIX DISCONTINUED. ASSESSMENT COMPLETE. LUNG SOUNDS EXPIRATORY WHEEZE IN RUL AND REMBERTO. CRACKLES IN RLL AND LLL. DIMINISHED THROUGHOUT. BOWEL TONES ACTIVE. PT DENIES ABD PAIN OR TENDERNESS WITH PALPATION. EDEMA NOTED TO BLE. BLE NOTED TO BE ELEVATED ON PILLOW IN BED. PT ON 6L HUMIDIFIED NC WITH O2 SATS AT 89-90%. SCATTERED BRUISING NOTED TO PTs BILATERAL ARMS. IVs FLUSH WNL. PT DENIES ANY OTHER NEEDS AT THIS TIME. CALL LIGHT IN REACH.
--- NOTE | 2024-04-21 09:50 | NUR ---
IN IV PUMP ALARMING, IV ABX COMPLETE. PT SL AT THIS TIME. PT SITTING UP IN BED WATCHING TV. PT DENIES ANY OTHER NEEDS AT THIS TIME. CALL LIGHT IN REACH.
--- NOTE | 2024-04-21 10:40 | NUR ---
THE PATIENT IS SITTING UP IN BED WATCHING TV. THE PATIENT PLANS TO GO HOME WHEN MEDICALLY STABLE. THE PATIENT'S WILL HELP NEEDED.
--- NOTE | 2024-04-21 10:54 | NUR ---
2 CNAS ASSISTED PATIENT TO BEDSIDE COMMODE AND THEN BACK TO BED. CNAS CHANGED PATIENTS BRIEF AND PATIENTS MALE PUREWICK AT 1040. CALL LIGHT WITHIN REACH, NO FURTHER NEEDS AT THIS TIME.
--- NOTE | 2024-04-21 11:46 | NUR ---
PT NOT AVAILABLE FOR VISIT. PROVIDED PRAYER.
--- NOTE | 2024-04-21 11:53 | NUR ---
UR CONCURRENT REVIEW: [facility]-DOES NOT MEET GL DAY 2, VIARANCE COMPLETED [facility] ORDER MATCHES REG UPDATED CLINICALS FAXED TO [facility] DISCHARGE PENDING FURTHER EVAL AND DECREASED OXYGEN NEEDS.
--- NOTE | 2024-04-21 12:41 | NUR ---
IN TO ANSWER CALL LIGHT. PT STATES "CAN YOU TURN THAT THING OFF" CPOX IS ALARMING. PTs O2 SATS NOTED TO BE 86%. NC NOTED TO BE TO THE SIDE OF PTs NOSE. THIS RN ASKED PT TO PLACE NC IN NOSE AND O2 SATS INCREASE TO 88-89% ON 6L HUMIDIFIED NC. PT DENIES ANY OTHER NEEDS AT THIS TIME. CALL LIGHT IN REACH.
--- NOTE | 2024-04-21 13:48 | NUR ---
WENT IN TO TAKE PT VITALS CHARTED THEM. PT SAID HE WAS TIRED AND WAS GONNA TRY TO TAKE A NAP. PT DIDNT NEED ANYTHIN ELSE FROM ME AND CALL LIGHT IS WITHIN REACH.
--- NOTE | 2024-04-21 14:17 | NUR ---
IN TO ADMINISTER MEDICATION, SEE MAR. PT REPORTING AIN WITH FLUSHING IN IV IN RIGHT FOREARM. IV REMOVED. IV IN LEFT FOREARM FLUSHES WNL AND MEDICAION ADMINISTERED. ASSESSMENT COMPLETE. EXPIRATORY WHEEZE NOTED IN REMBERTO. CLEAR IN RUL. CRACKLES IN RLL AND LLL. EDEMA TO BLE. BLE ELEVATED ON PILLOWS IN BED. PT REPORTING HEARTBURN, PRN MEDICATION ADMINISTERED, SEE MAR. PT DENIES ANY OTHER NEEDS AT THIS TIME. CALL LIGHT IN REACH. PT ON 6L HUMIDIFIED NC WITH O2 SATS AT 88-89%.
--- NOTE | 2024-04-21 16:17 | NUR ---
DID HRLY ROUNDING ON PT. PT WANTED A CUP OF ICE AND HE GOT IT PT DIDNT NEED ANYTHING ELSE AND CALL LIGHT IS WITHIN REACH.
--- NOTE | 2024-04-21 16:20 | NUR ---
IN TO ROUND ON PT. PT SITTING UP IN BED AND RESPONDS WHEN ADDRESSED. PT DENIES ANY NEEDS AT THIS TIME. PT ON 6L HUMIDIFIED NC WITH O2 SATS BETWEEN 88-90%. CALL LIGHT IN REACH.
[2024-04-21] MEDS ORDERED: PANTOPRAZOLE SODIUM 40 MG TABEC PO SCH (17:04)
[2024-04-21] MEDS ORDERED: FAMOTIDINE 20 MG/ 2 ML VIAL IV ONE (17:15)
--- NOTE | 2024-04-21 17:27 | NUR ---
IN TO ROUND ON PT AND ADMINISTER MEDICAITONS. PT SITTING UP IN BED AND HANDS THIS RN A RX BOTTLE OF OMEPRAZOLE. PT REPORTS TAKING 1 TABLET. THIS RN UPDATES MD. MD AWARE. VERBAL FROM MD THAT PT CAN TAKE HIS OWN HOME OMEPRAZOLE ONCE PHARMACY VERIFIES MEDICATION. VERIFIED WITH READBACK. MEDICATION SENT TO PHARMACY.
--- NOTE | 2024-04-21 17:57 | NUR ---
THIS RN IN ROOM DIVISION SERVICE MANAGER TO NURSES STATION REPORTING PT "IS THROWING UP." PT SITTING UP IN BED HIGH FOWLERS NOTED TO HAVE CLEAR LQUID/MUCUS ON GOWN. NEW GOWN PROVIDED. WASH CLOTH PROVIDED AND PTs FACE AND CHEST CLEANED UP AND DRY. PT REPORTING "IT IS HEART BURN" THIS RN ASKED PT IF PT FELT NAUSEOUS AND PT STATES "NO, I THINK IT WAS THE SPICE FROM THE DINNER." OFFERED PRN ZOFRAN OR PRN MAAYLOX AND PT DENIES BOTH. PT DENIES ANY OTHER NEEDS FROM THIS RN. CALL LIGHT IN REACH. PAU, DIVISION SERVICE MANAGER REMAINS IN ROOM.
[2024-04-21] MEDS ORDERED: OMEPRAZOLE 20 MG CAPSULE.DR PO SCH (18:30)
--- NOTE | 2024-04-21 18:32 | NUR ---
IN [employer] SHIPPING SERVICES SALES REPRESENTATIVE REPORTING TO THIS RN THAT PT IS STILL HAVING SOME EMESIS. UPON ENTERING ROOM PT IS SITTING UP IN HIGH FOWLERS IN BED WATCHING TV. NO EMESIS NOTED WHEN THIS RN ENTERS ROOM. NEW WASH CLOTHS PROVIDED. OFFERED PRN ZOFRAN, PT ACCEPTS. PRN ZOFRAN ADMINISTERED, SEE MAR. PT DENIES ANY OTHER NEEDS AT THIS TIME. CALL LIGHT IN REACH.
--- NOTE | 2024-04-21 20:56 | NUR ---
CONICAL MIXER OBTAINED VITALS AND I&O. PT STATES NO NEEDS AT THIS TIME. CALL LIGHT WITHIN REACH.
--- NOTE | 2024-04-21 21:36 | NUR ---
PT ASSESSMENT COMPLETE. PT RESTING IN BED WATCHING TV. PT DENIES PAIN, NAUSEA, OR SOB. LUNG SOUNDS COARSE IN BILATERAL UPPER LOBES AND R LOWER LOBE. LLL WITH CRACKLES, DO NOT CLEAR WITH COUGH. PT HAVAING THICK YELLOW SPUTUM PRODUCTION. CPOX AT BEDSIDE. SA02 86-88%. PT BREATHING THROUHG HIS MOUTH, PT STATES THIS IS NORMAL FOR HIM. O2 IN PLACE AT 6 LPM VIA NC. IV FLUSHED WITH 10 ML NS. PT REQUESTS SNACK, PROVIDED. PT DENIES FURTHER NEEDS AT THIS TIME. CALL LIGHT IN REACH.
[2024-04-21] MEDS ORDERED: methylPREDNISolone SOD SUCC 40 MG/ML VIAL IV SCH (22:00)
--- NOTE | 2024-04-21 23:57 | NUR ---
REPORT RECEIVED FROM MAUREEN GERBER. pt RESTING IN THE BED WITH EYES CLOSED. RR EVEN AND UNLABORED. CALL LIGHT WITHIN REACH. BOARD UPDATED.
[2024-04-22] VITALS (9 sets, daily range): BP systolic 104–139; BP diastolic 53–84
--- NOTE | 2024-04-22 01:49 | NUR ---
IN RM WITH KENNEL MANAGER DOG TRACK TO DO VITAL SIGNS AND SECOND ASSESSMENT. pt HAS EXPIRATORY WHEEZES IN ALL LOBES AND DEMINISHED IN THE BASES. pt DENIES ANY OTHER NEEDS AT THIS TIME. CALL LIGHT WITHIN REACH. 6LNC WITH pt SATTING AT 90%.
--- NOTE | 2024-04-22 03:15 | NUR ---
pt RESTING IN THE BED WITH EYES CLOSED. RR EVEN AND UNLABORED. CALL LIGHT WITHIN REACH.
--- NOTE | 2024-04-22 04:46 | NUR ---
IN RM TO CHECK ON pt DUE TO CPOX ALARMING. pt HAD TAKEN OFF HIS FINGER PROBE FOR THE CPOX. NEW STICKER PLACED ON pts FINGER AND pt SETTLED BACK INTO BED WITH BLANKETS. pt DENIES ANY OTHER NEEDS AT THIS TIME. CALL LIGHT WITHIN REACH.
[2024-04-22 05:42] LABS: BASOPHILS 0.6 % (0-2); EOSINOPHILS 0.2 % (0-6); HEMOGLOBIN 14.1 g/dL (12.0-18.0); LYMPHOCYTES 4.7 % (24-44); MCH 30.9 (27-36); MCHC 33.5 g/dl (30-36); MCV 92.2 fl (81-99); MONOCYTES 4.6 % (0-12); NEUTROPHILS 89.9 % (39-80); PLATELET COUNT 261 K/uL (140-440); RBC 4.56 M/ul (4.3-5.7); RDW 14.9 (10.5-15.0)
[2024-04-22 05:55] LABS: ANION GAP 10.2 (7-21); BUN/CREATININE RATIO 21.37 (6.0-28.6); CALCIUM 9.4 mg/dL (8.5-10.1); CREATININE, SERUM 1.45 mg/dL (0.70-1.30); MAGNESIUM 2.5 mg/dL (1.8-2.4); POTASSIUM 4.2 mmol/L (3.5-5.1)
--- NOTE | 2024-04-22 06:11 | NUR ---
pt RESTED THROUGHOUT THE NIGHT. pt A&O TO SELF. NO NEW DEFICITS. pt HR IN THE 90'S TO LOW 100'S THROUGH OUT THE NIGHT. NO CONCERNS AT THIS TIME.
--- NOTE | 2024-04-22 06:17 | NUR ---
pt RESTED THROUGH OUT THE NIGHT. pt SATTING AT 90 TO 91% ON 6LNC. PURE WICK IN PLACE. NO OTHER CONCERNS AT THIS TIME. EXPIRATORY WHEEZES THROUGH OUT LUNGS.
--- NOTE | 2024-04-22 07:16 | NUR ---
Got report from mini shifter RN.
--- NOTE | 2024-04-22 08:29 | NUR ---
PATIENT IN BED AT THIS TIME. CALL LIGHT WITHIN REACH, NO FURTHER NEEDS AT THIS TIME.
--- NOTE | 2024-04-22 09:22 | NUR ---
INTO CHECK ON PATIENT AND DO MORE MEDICATIONS. ANTIBIOTIC IS CURRENTLY RUNNING. PATIENT IS GETTING NEW TELE STICKERS PLACED BY CHARGE NURSE. PATIENT GOT HIS XRAY DONE THIS MORNING. PATIENT HAS PUREWICK ON. HE IS ON 4L NC AND STATING AROUND 88. RT WAS IN ROOM AND DOCTOR WAS IN ROOM AT SAMETIME. PATIENT EATING BREAKFAST. DENIES ANY CARES AT THIS TIME.
--- NOTE | 2024-04-22 10:19 | NUR ---
CHECKED ON PATIENT, HE WOULD LIKE MORE COFFEE. ATE ALL HIS BREAKFAST. CURRENTLY WATCHING TV, DENIES ANY OTHER CARES AT THIS TIME. O2 IS CURRENTLY AT 90 ON HIS CHRONIC 4L.
--- NOTE | 2024-04-22 10:51 | NUR ---
tele has been removed.
--- NOTE | 2024-04-22 11:10 | NUR ---
PATIENT IN BED AT THIS TIME. NATIONAL SALES DIRECTOR CHARTED VITALS AND I&O'S. NATIONAL SALES DIRECTOR AND RN ALSO BOOSTED PATIENT IN BED AT THIS TIME. CALL LIGHT WITHIN REACH, NO FURTHER NEEDS AT THIS TIME.
[2024-04-22] MEDS ORDERED: FINASTERIDE 5 MG TAB PO SCH (13:08)
--- NOTE | 2024-04-22 13:49 | NUR ---
PATIENT MEDICATIONS GIVEN. PATIENT DENIES ANY CARES. CURRENTLY WATCHING TV.
--- NOTE | 2024-04-22 14:04 | NUR ---
PATIENT IN BED AT THIS TIME. NURSING CARE PARTNER CHARTED VITALS AND I&O'S. CALL LIGHT WITHIN REACH, NO FRUTHER NEEDS AT THIS TIME.
--- NOTE | 2024-04-22 14:44 | NUR ---
PATIENT HAS NOT HAD A BM SINCE 04.19.24. DOCTOR IS AWARE AND WILL PLACE ORDER FOR MEDICATION.
--- NOTE | 2024-04-22 14:52 | NUR ---
PATIENT CURRENTLY SLEEPING ON RIGHT SIDE. OXYGEN IN THE 90S ON 4L.
[2024-04-22] MEDS ORDERED: ALBUTEROL/IPRATROPIUM 3 ML NEB INH SCH (16:00)
--- NOTE | 2024-04-22 16:21 | NUR ---
PATIENT BOOSTED UP IN BED, BROUGHT PATIENT FOOD FROM THE SADDLE. PATIENT DENIES ANY CARES AT TIME.
--- NOTE | 2024-04-22 19:26 | NUR ---
REPORT RECEIVED FROM DAY SHIFT RN. PT LYING IN BED ALERT AND ORIENTED. DENIES NEEDS. WHITE BOARD UPDATED. CALL LIGHT IN REACH.
[2024-04-22 19:54] LABS: LEGIONELLA PNEUMOPHILA AG,URN Negative (Negative)
[2024-04-22] MEDS ORDERED: methylPREDNISolone SOD SUCC 40 MG/ML VIAL IV SCH (21:00)
[2024-04-22] MEDS ORDERED: SERTRALINE HCL 25 MG TAB PO SCH (21:00)
[2024-04-22] MEDS ORDERED: POLYETHYLENE GLYCOL 3350 1 PACKET PO SCH (21:00)
[2024-04-22] MEDS ORDERED: ASPIRIN 81 MG TABEC PO SCH (21:00)
[2024-04-22] MEDS ORDERED: SENNOSIDES/DOCUSATE 1 EA TAB PO SCH (21:00)
--- NOTE | 2024-04-22 21:03 | NUR ---
PATIENT SITTING UP IN BED WATCHING TV AT THIS TIME. VITALS AND I&O'S DONE AND CHARTED. CALL LIGHT IN REACH. NO FURTHER NEEDS AT THIS TIME.
--- NOTE | 2024-04-22 22:17 | NUR ---
EVENING ASSESSMENT COMPLETE. SCHEDULED MEDS ADMIN PER EMAR. PT DENIES PAIN OR NAUSEA. DENIES SOB. 4L/NC IN PLACE. SpO2 LOW 90'S. RESPIRATIONS EVEN. LOOSE COUGH NOTED. LUNGS CLEAR/DIM THROUGHOUT. CPOX AND SCD'S IN PLACE. BLE EDEMA NOTED. BLE ELEVATED ON PILLOW. PT DENIES QUESTIONS OR CONCERNS. CALL LIGHT IN REACH. BED ALARM FOR SAFETY.
[2024-04-23] VITALS (8 sets, daily range): BP systolic 108–145; BP diastolic 61–94
--- NOTE | 2024-04-23 00:27 | NUR ---
PT RESTING IN BED ON RIGHT SIDE WITH EYES CLOSED. RESPIRATIONS EVEN. SpO2 91% ON 4L/NC. HR 70'S.
--- NOTE | 2024-04-23 03:00 | NUR ---
PT RESTING IN BED WITH EYES CLOSED. RESPIRATIONS EVEN. CALL LIGHT IN REACH.
[2024-04-23 05:16] LABS: BASOPHILS 0.5 % (0-2); HEMATOCRIT 42.8 % (35.0-50.0); HEMOGLOBIN 14.4 g/dL (12.0-18.0); LYMPHOCYTES 6.8 % (24-44); MCHC 33.6 g/dl (30-36); MCV 92.1 fl (81-99); MONOCYTES 5.3 % (0-12); NEUTROPHILS 87.4 % (39-80); PLATELET COUNT 254 K/uL (140-440); RBC 4.64 M/ul (4.3-5.7); RDW 15.1 (10.5-15.0)
[2024-04-23 05:28] LABS: ANION GAP 11.6 (7-21); BUN/CREATININE RATIO 29.91 (6.0-28.6); CALCIUM 8.6 mg/dL (8.5-10.1); CREATININE, SERUM 1.17 mg/dL (0.70-1.30); POTASSIUM 4.6 mmol/L (3.5-5.1)
--- NOTE | 2024-04-23 05:51 | NUR ---
PT RESTING WITH EYES CLOSED. AWAKENS EASILY. VS AND I&O OBTAINED. ASSESSMENT COMPLETE. PT DENIES NEEDS. BED ALARM FOR SAFETY. CALL LIGHT IN REACH.
--- NOTE | 2024-04-23 07:13 | NUR ---
Pt report received from ZABRINA Rivera. Pt is awake, sitting in bed with HOB elevated. Pt denies any needs at this time. Call light and bedside table within reach. Pt states he would like to take a shower today. White board updated.
--- NOTE | 2024-04-23 07:44 | NUR ---
RA TRIAL 86%, REPLACED O2 AT 4 LPM.
[2024-04-23] MEDS ORDERED: MAGNESIUM CITRATE 300 ML BTL PO ONE (07:45)
[2024-04-23] MEDS ORDERED: CEFTRIAXONE/SODIUM CHLORIDE 2 GM/100 ML PIGGYBACK IV SCH (09:00)
--- NOTE | 2024-04-23 10:30 | NUR ---
patient to chair after BSC, linens changed, male purewick removed. abbie care performed. patient has no other requests at this time, call light within reach.
--- NOTE | 2024-04-23 19:30 | NUR ---
REPORT RECEIVED FROM DAY SHIFT RN. PT LYING IN BED ALERT AND ORIENTED. DENIES NEEDS. WHITE BOARD UPDATED. CALL LIGHT IN REACH.
--- NOTE | 2024-04-23 20:35 | NUR ---
EVENING ASSESSMENT COMPLETE. SCHEDULED MEDS ADMIN PER EMAR. PT REPORTS PAIN IN RIGHT TOES. PRN FOR PAIN ADMIN PER EMAR. PT INCONTINENT OF URINE. UP TO RECLINER FOR LINEN AND GOWN CHANGE WITH 1PA AND FWW. BACK TO BED, BAKARI WELL. GAIT SLOW BUT STEADY. MALE PUREWICK PLACED AFTER ASHLIE CARE. SCD'S AND CPOX IN PLACE. SpO2 88-91% ON 4L/NC. LUNGS DIM THROUGHOUT. PRODUCTIVE COUGH NOTED WITH CLEAR SPUTUM. ON OCCASION PT REPORTS BLOOD TINGED SPUTUM. PT DENIES QUESTIONS OR CONCERNS. CALL LIGHT IN REACH.
[2024-04-23 22:34] LABS: ASPERGILLUS FUMIGATUS AB IGG 10.3 mcg/mL (<=99.99)
--- NOTE | 2024-04-23 23:00 | NUR ---
PATIENT CALLED AND ASK FOR THE FOLLOWING SNACKS, SALTINE AND GRAHAN CRACKERS, AND COFFEE (DECAF). NO FURTHER NEEDS AT THIS TIME. ROOM LIGHTS OFF PER PATIENT.
[2024-04-24] MEDS ORDERED: predniSONE 10 MG TAB PO SCH
--- NOTE | 2024-04-24 00:38 | NUR ---
PT AWAKE IN BED WATCHING TV. SpO2 91% ON 4L/NC. HR 70'S. NO NEEDS AT THIS TIME. CALL LIGHT IN REACH.
--- NOTE | 2024-04-24 03:18 | NUR ---
PT AWAKE IN BED. COFFEE PROVIDED PER REQUEST. ASSESSMENT COMPLETE. SCATTERED WHEEZE AUSCULTATED THROUGHOUT. PT DENIES SOB. RT CALLED FOR BREATHING TX. SpO2 88-90% ON 4L/NC DURING INTERACTION. RESPIRATIONS EVEN. NO FURTHER NEEDS. CALL LIGHT IN REACH.
[2024-04-24 04:49] VITALS: BP 146/77
[2024-04-24 04:51] VITALS: BP 146/77
--- NOTE | 2024-04-24 05:44 | NUR ---
VS AND I&O OBTAINED. MALE PUREWICK LEAKING. ASHLIE CARE DONE AND CLEAN LINENS PROVIDED. NEW PUREWICK PLACED. ASSISTED TO REPOSITION IN BED. NO FURTHER NEEDS. CALL LIGHT IN REACH.
--- NOTE | 2024-04-24 07:00 | NUR ---
Pt report received from ZABRINA Rivera.
--- NOTE | 2024-04-24 09:17 | NUR ---
IN TO SPEAK WITH PATIENT. HE IS ALERT AND ORIENTED IN BED. DISCUSSED IMM LETTER. STATES WHEN IT'S TIME FOR HIM TO BE DISCHARGED, HE'S READY. HE DOES NOT WANT TO WAIT AROUND ANYMORE. DISCUSSED POTENTIAL NEED FOR HOME OXYGEN. VERBLIZES UNDERSTANDING. INFORMED IF THERE IS A CHANGE, THE NEW ORDER WILL BE SENT TO [facility]. DENIES OTHER NEEDS AT THIS TIME.
[2024-04-24 09:56] VITALS: BP 139/83
[2024-04-24 10:14] LABS: CHOLESTEROL/HDL RATIO 2.7
[2024-04-24 10:51] VITALS: BP 139/83
[2024-04-24] MEDS ORDERED: PREDNISONE10 MG PO (12:19)
--- NOTE | 2024-04-24 12:32 | NUR ---
CHART NOTES, ORDERS, FACESHEET FAXED TO [facility] AND [facility] FOR REVIEW. ALSO SENT REQUEST FOR OUTPATIENT PT TO [facility] TO DR. MERCADO FOR REVIEW AND TO SET UP OUTPATIENT PT.
--- NOTE | 2024-04-24 12:55 | NUR ---
PT NOT AVAILABLE FOR VISIT. PROVIDED PRAYER.
--- NOTE | 2024-04-24 13:20 | NUR ---
CALLED [facility] TO DISCUSS PATIENT OXYGEN INCREASE. STATE THEY NO LONGER HAVE HIM ON SERVICE. CALLED [facility]. PATIENT IS ON THEIR SERVICE. NOTIFIED NEW ORDERS WILL BE FAXED REGARDING INCREASED OXYGEN NEEDS. INFORMED [facility]
[2024-04-24 14:02] VITALS: BP 139/95
--- NOTE | 2024-04-24 17:08 | NUR ---
Pt is up in chair, asleep. Lights off. Breathing regular, even, and non-labored. Call light in reach.
== END 2024-04-24 17:55 | disposition home or self-care (01) | DRG 193 ==
LOC: ED 20:42 → CCU 22:06 → MS 04-19 23:06
PROVIDERS: Internal Medicine; Student in an Organized Health Care Education/Training Program; ADMIT Student in an Organized Health Care Education/Training Program; ATTEND Student in an Organized Health Care Education/Training Program
DX: J18.9 Pneumonia, unspecified organism (principal); J96.21 Acute and chronic respiratory failure with hypoxia; J44.0 Chronic obstructive pulmonary disease with (acute) lower respiratory infection; J44.1 Chronic obstructive pulmonary disease with (acute) exacerbation; E87.20 Acidosis, unspecified; I50.32 Chronic diastolic (congestive) heart failure; N39.0 Urinary tract infection, site not specified; F17.210 Nicotine dependence, cigarettes, uncomplicated; K21.9 Gastro-esophageal reflux disease without esophagitis; F29 Unspecified psychosis not due to a substance or known physiological condition; N40.0 Benign prostatic hyperplasia without lower urinary tract symptoms; I11.0 Hypertensive heart disease with heart failure; E87.6 Hypokalemia; Z66 Do not resuscitate; K59.00 Constipation, unspecified; Z88.8 Allergy status to other drugs, medicaments and biological substances; Z91.013 Allergy to seafood; E78.00 Pure hypercholesterolemia, unspecified; F43.10 Post-traumatic stress disorder, unspecified; Z95.5 Presence of coronary angioplasty implant and graft; Z90.49 Acquired absence of other specified parts of digestive tract; Z98.890 Other specified postprocedural states; Z79.82 Long term (current) use of aspirin; Z79.899 Other long term (current) drug therapy; Z99.81 Dependence on supplemental oxygen; R91.1 Solitary pulmonary nodule
CPT/HCPCS: 36415; 51701; 51798; 71045; 71046; 71250; 80048; 80053; 80061; 81001; 83605; 83735; 83880; 84484; 85025; 85060; 86606; 87040; 87070; 87088; 87205; 87327; 87449; 87502; 93005; 93010; 93306; 94640; 94667; 94668; 94761; 94762; 96368; 97116; 97161; 97530; 99285-25; A9270; J0456; J0696; J1650; J1720; J1940; J2405; J2919; J3475; J3480; J7121; J7512; U0002

== ENCOUNTER 2025-05-15 00:10 | Emergency (ER) | payer OTHER, MEDICARE ==
[~2025-05-15] VITALS: Ht 180.3 cm; Wt 98.7 kg
[~2025-05-15 00:10] MED LIST changes: +PREDNISONE10 MG PO; +SILODOSIN8 MG PO
[2025-05-15] MEDS ORDERED: MORPHINE SULFATE 4 MG/ML VIAL ONE (00:24)
[2025-05-15] MEDS ORDERED: MORPHINE SULFATE 4 MG/ML VIAL IV ONE (00:30)
[2025-05-15 00:34] LABS: BASOPHILS 0.5 % (0.2-1.2); EOSINOPHILS 1.5 % (0.8-7.0); LYMPHOCYTES 31.6 % (21.8-53.1); MCH 30.4 PG (25.7-32.2); MCHC 33.4 g/dL (32.3-36.5); MCV 90.9 fL (79.0-92.2); MONOCYTES 6.4 % (5.3-12.2); NEUTROPHILS 59.3 % (34.0-67.9); RBC 4.94 M/uL (4.63-6.08)
[2025-05-15 00:51] LABS: ALT (SGPT) 17.0 U/L (14-59); AST (SGOT) 13.0 U/L (15-37); GLOMERULAR FILTRATION RATE,EST 63.0 mL/min (>60); PROTEIN, TOTAL 6.3 g/dL (6.4-8.2); UREA NITROGEN 13.0 mg/dL (7-18)
[2025-05-15] MEDS ORDERED: SODIUM CHLORIDE 0.9% 20 ML IV ONE (01:27)
[2025-05-15] MEDS ORDERED: DEXAMETHASONE SOD PHOS 10 MG/ML VIAL ONE (01:27)
[2025-05-15] MEDS ORDERED: LIDOCAINE HCL 2% 20 MG/ML VIAL INJ ONE (01:28)
[2025-05-15] MEDS ORDERED: Ropivacaine HCl 0.5% 30 ML VIAL ONE (01:28)
[2025-05-15 01:50] LABS: INR 1.02 (0.80-1.30); PROTIME 13.0 Sec (11.2-14.2)
[2025-05-15] MEDS ORDERED: LIDOCAINE 2% VISCOUS 6 ML SYR TOP ONE ×2 (02:00→02:15)
[2025-05-15 02:27] LABS: BLOOD/HGB, URINE NEGATIVE (Negative); KETONE, URINE NEGATIVE (Negative); LEUK ESTERASE, URINE SMALL (negative); NITRITE, URINE POSITIVE (negative)
[2025-05-15 02:32] LABS: BACTERIA, URINE 4+ /hpf (negative); CRYSTALS, URINE NONE SEEN (0-1+); EPITHELIAL CELLS, URINE SQUAMOUS 1+ /lpf (0-1+)
[2025-05-15 02:33] LABS: CASTS, URINE NONE SEEN \\lpf; REFLEX CULTURE, URINE Yes (No)
[2025-05-15] MEDS ORDERED: AZITHROMYCIN 500 MG in DEXTROSE 5% 250 ML IV ONE (03:00)
[2025-05-15 03:31] LABS: LACTIC ACID, BLOOD 1.0 mmol/L (0.4-2.0)
[2025-05-15 06:47] VITALS: BP 140/83
--- NOTE | 2025-05-16 07:40 | EKG ---
[facility] [address] [facility] [place] [address] Signed Sinus rhythm with occasional premature ventricular complexes Left axis deviation Right bundle branch block T wave abnormality, consider lateral ischemia Abnormal ECG When compared with ECG of 18-APR-2024 20:50, premature ventricular complexes are now present Vent. rate has decreased BY 51 BPM Questionable change in QRS axis Confirmed by Tammy Hernández DO ([id number]) on 05/16/2025 7:40:09 AM Electronically Signed By: TAMMY HERNÁNDEZ DO 05/16/25 0740 PATIENT NAME: ELHAM LESLIE Electrocardiogram DATE OF : 45 PHYSICIAN: TAMMY HERNÁNDEZ DO REPORT #: [id number] REPORT IS CONFIDENTIAL AND NOT TO BE RELEASED WITHOUT AUTHORIZATION
== END 2025-05-15 06:50 | disposition short-term general hospital (02) ==
LOC: ED 00:10
PROVIDERS: Internal Medicine
DX: S72.011A Unspecified intracapsular fracture of right femur, initial encounter for closed fracture (principal); J44.0 Chronic obstructive pulmonary disease with (acute) lower respiratory infection; J18.9 Pneumonia, unspecified organism; N39.0 Urinary tract infection, site not specified; K21.9 Gastro-esophageal reflux disease without esophagitis; J44.9 Chronic obstructive pulmonary disease, unspecified; F43.10 Post-traumatic stress disorder, unspecified; F17.200 Nicotine dependence, unspecified, uncomplicated; W18.30XA Fall on same level, unspecified, initial encounter
CPT/HCPCS: 36415; 51702; 64473; 71045; 73502; 80053; 81001; 83605; 83880; 84484; 85025; 85610; 85730; 87040; 87077; 87088; 87186; 93005; 93010; 96374; 96375; 99285-25; A4311; J0456; J0696; J1100; J2270; J2405; J2795; J7060